=== PATIENT | male | born 1950 | race Caucasian/White ===

== ENCOUNTER 2020-04-02 14:43 | Inpatient (IN) | payer MEDICARE, OTHER, SELFPAY ==
[2020-04-02] VITALS (8 sets, daily range): BP systolic 139–198; BP diastolic 86–111; PULSE 63–76; RESP 17–21; TEMP 36.6–36.7; O2SAT 98–100; BMI 29.2
--- NOTE | ~2020-04-02 | XR_ITS ---
EXAMINATION: XR chest 2V DATE: 04/07/2020 10:31 INDICATION: Bilateral pleural effusions. TECHNIQUE: Frontal and lateral views of the chest were obtained. COMPARISON: Chest 2 views 04/03/2020, chest CT 04/02/2020 FINDINGS: There are small pleural effusions. There is mild atelectasis in the lower lung zones. No pn eumothorax. The heart size is normal. IMPRESSION: 1. Worsened small pleural effusions. Reviewed, dictated and finalized at location A.
--- NOTE | ~2020-04-02 | US_ITS ---
EXAMINATION: US right upper quadrant EXAM DATE: 04/05/2020 14:16 INDICATION: Cirrhosis. TECHNIQUE: Multiple grayscale and Doppler images of the abdomen right upper quadrant were obtained (b y a technologist who performed the scan) and subsequently reviewed. Correlation is made to CTA [facility] scan 04/02/2020. FINDINGS: The pancreatic head and body are normal in appearance. The pancreatic tail is not visualized. There is nodular liver contour with mildly heterogeneous liver parenchyma, consistent with cirrhosis. Ther e is small amount of perihepatic and pericholecystic ascites. There are no focal liver lesions ident ified. There is no evidence of intrahepatic biliary duct dilation. Portal venous flow was seen in the hepatopedal, normal direction with mildly pulsatile flow could be transmitted from right heart fa ilure. No right-sided hydronephrosis. Common bile duct measures 3 mm, which is normal. Borderline thickening gallbladder wall, nonspecific in the setting of ascites. Technologist performing exam reports patient did not demonstrate sonograp hic López's sign. Please note that this sign is less reliable in patients who have received pain me dication. Some echogenic debris and probably small poorly calcified gallstones within the gallbladde r lumen. IMPRESSION: 1. Nodular liver contour consistent with cirrhosis. 2. Small perihepatic, pericholecystic ascites. 3. Cholelithiasis. Borderline nonspecific wall thickening without sonographic López's sign. Reviewed, dictated and finalized at location A.
--- NOTE | ~2020-04-02 | US_ITS ---
EXAMINATION: US venous doppler [facility] DATE: 04/03/2020 08:32 INDICATION: Lower limb swelling TECHNIQUE: Grayscale ultrasound images without and with compression and Doppler ultrasound images of the bilateral lower extremity veins were obtained. COMPARISON: None. FINDINGS: The visualized portions of right common femoral vein, profunda (deep) femoral vein, femoral vein, pop liteal vein, posterior tibial veins, peroneal veins, gastrocnemius vein and greater saphenous vein ou tflow are patent. Increased venous pulsatility with biphasic venous waveforms throughout the right lo wer limb. Subcutaneous edema at the right calf. The visualized portions of left common femoral vein, profunda femoral vein, femoral vein, popliteal v ein, posterior tibial veins, peroneal veins, gastrocnemius vein and greater saphenous vein outflow ar e patent. Increased venous pulsatility with biphasic venous waveforms throughout the left lower limb. Subcutaneous edema at the left calf. IMPRESSION: 1. No deep venous thrombosis in either lower limb. 2. Increased venous pulsatility with biphasic waveforms throughout both lower limbs which can be seen with tricuspid regurgitation, congestive heart failure or other causes of elevated right heart press ures. Reviewed, dictated and finalized at location A. IMPRESSION: 1. No deep venous thrombosis in either lower limb. 2. Increased venous pulsatility with biphasic waveforms throughout both lower l imbs which can be seen with tricuspid regurgitation, congestive heart failure o r other causes of elevated right heart pressures.
--- NOTE | ~2020-04-02 | CT_ITS ---
EXAMINATION: CTA chest PE protocol DATE: 04/02/2020 17:22 INDICATION: Chest pain TECHNIQUE: Computed tomography angiography (CTA) of the chest was performed with 100 mL Omnipaque-350 intravenous contrast timed to evaluate the pulmonary arteries. Coronal maximum intensity projection 3D-reconstructions were created by the technologist. The dose-length product (DLP) was 525.19 mGy-cm. Automated exposure control and iterative reconstruction technique were employed. COMPARISON: None. FINDINGS: No pulmonary embolism or acute cardiopulmonary abnormality. There are moderate size right a nd small left pleural effusions. Fluid tracks into the major fissure on the right. There is atelectas is of the lower lobes, right greater than left. There is no pneumothorax. Moderate bilateral gynecoma stia is noted. No pathologically enlarged thoracic lymph nodes are identified. The heart size is norm al. There is moderate thoracic spondylosis. IMPRESSION: 1. No pulmonary embolism. 2. Moderate-sized pleural effusions, right greater than left, with associated passive atelectasis in the lower lobes. Reviewed, dictated and finalized at location A. IMPRESSION: 1. No pulmonary embolism. 2. Moderate-sized pleural effusions, right greater than left, with associated p assive atelectasis in the lower lobes.
--- NOTE | ~2020-04-02 | US_ITS ---
EXAMINATION: US thoracentesis DATE: 04/03/2020 14:41 INDICATION: Moderate-sized right pleural effusion. TECHNIQUE: The procedure and its risks and benefits were discussed with the patient. Potential risks discussed included bleeding, infection, and pneumothorax. The patient understood the risks and agreed to proceed. The skin was prepped and draped in sterile fashion. 1% lidocaine was used for local anes thesia. Under ultrasound guidance, a 5 Fr catheter with trochar was advanced into the moderate-sized right pleural effusion. Fluid was aspirated. The catheter was removed, and a dressing was applied. Th ere were no immediate complications. FINDINGS: Ultrasound images demonstrate a moderate-sized right pleural effusion and the catheter within the flu id. IMPRESSION: 1. Successful ultrasound-guided thoracentesis yielding 700 mL of slightly turbid zarina-colored fluid . Reviewed, dictated and finalized at location A. IMPRESSION: 1. Successful ultrasound-guided thoracentesis yielding 700 mL of slightly turb id zarina-colored fluid.
--- NOTE | ~2020-04-02 | XR_ITS ---
EXAMINATION: XR chest 1V portable INDICATION: Shortness of breath TECHNIQUE: Portable AP chest at 1623 hours COMPARISON: None available FINDINGS: There is a small right pleural effusion. There are airspace opacities of the right lung bas e. No pneumothorax is identified. The cardiomediastinal silhouette is normal. IMPRESSION: 1. Small right pleural effusion. 2. Right basilar airspace opacity, consistent with atelectasis versus pneumonia. Reviewed, dictated and finalized at location A. IMPRESSION: 1. Small right pleural effusion. 2. Right basilar airspace opacity, consistent with atelectasis versus pneumonia .
--- NOTE | ~2020-04-02 | XR_ITS ---
EXAMINATION: XR chest 2V DATE: 04/03/2020 14:35 INDICATION: Right pleural effusion postthoracentesis TECHNIQUE: frontal and lateral views of the chest were obtained. COMPARISON: Chest radiograph dated 01/02 at 8:15 AM FINDINGS: Small bilateral pleural effusions with significant decrease in size on the right post right thoracent esis. No pneumothorax. No other airspace opacities or pulmonary edema. The cardiomediastinal silhouet te is normal. Visualized bones and soft tissues are unremarkable. IMPRESSION: 1. Small bilateral pleural effusions, significantly decreased on the right post right thoracentesis. No pneumothorax. Reviewed, dictated and finalized at location A.
--- NOTE | ~2020-04-02 | XR_ITS ---
XR chest 2V DATE: 04/03/2020 08:18 INDICATION: Right pleural effusion TECHNIQUE: AP and lateral views COMPARISON: 04/03/2020 AP and lateral views FINDINGS: There is persistent mild to moderate right pleural effusion. There is persistent infiltrat e or atelectasis in the right lower lung field. Normal heart size. IMPRESSION: No significant change since 04/03/2020 Reviewed, dictated and finalized at location A.
--- NOTE | 2020-04-02 15:09 | ECG_ITS ---
Measurements Intervals [place] Rate: 65 P: 37 MN: 120 QRS: 50 QRSD: 79 T: 195 QT: 411 QTc: 428 Interpretive Statements SINUS RHYTHM LOW QRS VOLTAGE IN LIMB LEADS BORDERLINE R WAVE PROGRESSION, ANTERIOR LEADS BORDERLINE T WAVE ABNORMALITY- INFERIOR LEADS BASELINE WANDER- I, II, AVR, AVL, AVF, V1-V6 BORDERLINE ECG Electronically Signed On 04-02-2020 16:16:21 CDT by Luis Gonzalez D.O.
--- NOTE | 2020-04-02 15:11 | ED.SOB ---
HPI - SOB/Dyspnea General Chief Complaint: Shortness of Breath/Dyspnea Stated Complaint: SOB Time Seen by Provider: 04/02/20 15:01 Source: patient Mode of arrival: ambulatory Limitations: no limitations History of Present Illness HPI Narrative: This patient is an male with history of hypertension who presents for evaluation of shortness of breath for 3 weeks. Patient has had leg swelling for 3 week and worsening shortness of breath. He reports coughing at night and he has orthopnea. She denies associated chest pain, fever, dizziness , nausea or vomiting. His finally made him come in for evaluation today. He denies previous history heart disease, CHF or COPD. MD elicited complaint: shortness of breath Related Data Home Medications Medication Instructions Recorded Confirmed atorvastatin 04/02/20 04/02/20 fluticasone propionate INTRANASAL 04/02/20 glipizide mg 04/02/20 losartan 04/02/20 montelukast mg 04/02/20 omeprazole 04/02/20 Allergies Allergy/AdvReac Type Severity Reaction Status Date / Time No Known Allergies Allergy Unverified 05/30/19 15:14 Review of Systems Review of Systems: All systems reviewed & are unremarkable except as noted in HPI and below Constitutional: Constitutional: Denies chills, Denies fever(s) and Reports weakness Cardiovascular: Cardiovascular: Denies chest pain and Denies radiating jaw, neck or arm pain Respiratory: Respiratory: Reports cough and Reports dyspnea PMFSH Past Medical History Medical History (Updated 04/02/20 @ 18:39 by Mindi Kay MD) GERD (gastroesophageal reflux disease) Hypertension Social History Social History (Updated 04/02/20 @ 15:15 by Mindi Kay MD) Smoking status: Never smoker Substance use: never Comments Previous cyst removal from his back Exam Narrative: Exam Narrative: GENERAL: Well-appearing, well-nourished, and in no acute distress. HEAD: Normocephalic, atraumatic EYES: PERRLA and EOMI, conjunctiva clear without discharge EARS: TM's clear bilaterally without erythema or dullness NOSE: Nares clear, no rhinorrhea or epistaxis THROAT:Mucous membranes moist, Oropharynx normal without erythema, exudate, peritonsillar swelling or fluctuance NECK: Supple, without lymphadenopathy or mass RESPIRATORY: No respiratory distress, Airway patent, Respirations non-labored, Clear to auscultation without rales, rhonchi or wheeze HEART: Regular rate and rhythm. No murmur heard. Normal peripheral pulses. ABDOMEN: Soft, nontender, nondistended, normal active bowel sounds. No masses. No rebound or guarding, No organomegaly. EXTREMITIES: 3+ pitting edema to lower extremities normal strength with full range of motion. SKIN: Warm, dry, normal color without rash NEURO: Alert and oriented x3. CN 2-12 grossly intact. No focal deficits. PSYCH: Normal mood and affect. Const: General: no acute distress Orientation/consciousness: patient oriented x3 Course Consultations Consultation #1: I discussed with Edie patient presenting with shortness of breath and moderate size pleural effusion. She accepts for admission. Date: 04/02/20 Time: 18:36 Vital Signs Vital signs: Vital Signs Temperature 98.1 F 04/02/20 14:44 Pulse Rate 68 04/02/20 14:44 Respiratory Rate 20 04/02/20 14:44 Blood Pressure 162/88 H 04/02/20 14:44 Pulse Oximetry 100 04/02/20 14:44 Temperature 98.1 F 04/02/20 14:44 Pulse Rate 65 04/02/20 18:25 Respiratory Rate 20 04/02/20 18:25 Blood Pressure 179/111 H 04/02/20 18:25 Pulse Oximetry 98 04/02/20 18:25 MDM - SOB/Dyspnea Lab Data Attestation: I reviewed the patient's lab results. Result diagrams: 04/02/20 15:59 04/02/20 15:59 Labs: Lab Results 04/02/20 04/02/20 04/02/20 Range/Units 15:43 15:58 15:58 WBC (4.5-10.0) K/mm3 RBC (4.6-6.20) M/mm3 Hgb (14.0-18.0) g/dL Hct (42.0-52.0) % MCV (80-100) fl
[2020-04-02 15:48] LABS: Alveolar/Arterial O2 Gradient 35.9 mmHg; Base Excess ABG -1.4 mEq/l (+/-2.0); Carboxyhemoglobin 0.9 % THb (0-2.0); Fractional Inspired Oxygen 21 %; Methemoglobin ABG 0.3 %THb (0-1.5); Oxygen Saturation ABG 96.4 % (95.0-100.0); Oxyhemoglobin 93.7 % THb (90.0-100.0); PCO2 ABG 29.5 mmHg (35.0-45.0); PO2 ABG 78.5 mmHg (80.0-100.0); PO2 FiO2 Ratio Arterial Blood 3.74 %; Reduced Hemoglobin 5.1 %THb (0-5.0); Total Hemoglobin 14.4 g/dL (12.0-18.0); pH ABG 7.471 (7.350-7.450)
[2020-04-02 15:49] LABS: Device ROOM AIR; Site Drawn LEFT BRACHIAL
[2020-04-02 16:12] LABS: Basophils Absolute Auto 0.1 K/mm3 (0.0-0.1); Basophils Percent Auto 1.1 % (0.2-1.2); Eosinophils Percent Auto 0.6 % (0-4.4); Hematocrit 42.5 % (42.0-52.0); Hemoglobin 13.7 g/dL (14.0-18.0); Immature Granulocyte Absolute 0.02 K/mm3 (0.00-0.031); Immature Granulocyte Percent A 0.4 % (0-0.5); Lymphocytes Absolute Auto 1.19 K/mm3 (0.9-3.2); Lymphocytes Percent Auto 22.8 % (18.3-44.2); Mean Corpuscular HGB Conc 32.2 g/dl (32-36); Mean Corpuscular Hemoglobin 31.1 pg (26-34); Mean Corpuscular Volume 96.6 fl (80-100); Mean Platelet Volume 11.1 fl (7.4-10.4); Monocytes Absolute Auto 0.7 K/mm3 (0.1-0.6); Monocytes Percent Auto 12.8 % (2.6-8.5); Neutrophils Absolute Auto 3.3 K/mm3 (1.3-6.7); Neutrophils Percent Auto 62.3 % (45.5-73.1); Platelet Count Result 215 k/mm3 (150-375); Red Cell Distribution Width 15.9 % (11.5-14.5); White Blood Count 5.2 K/mm3 (4.5-10.0)
[2020-04-02 16:18] LABS: INR 1.5; Prothrombin Time 17.8 Seconds (11.1-14.7)
[2020-04-02 16:19] LABS: Partial Thromboplastin Time 35.1 SECONDS (22.3-36.8)
[2020-04-02 16:21] LABS: Blood Urea Nitrogen 20 mg/dL (9-20); Calcium 9.4 mg/dL (8.4-10.2); Carbon Dioxide 20 mmol/L (22-30); Chloride 112 mmol/L (98-107); Estimated Glomerular Filt Rate 55; Glucose 114 mg/dL (75-110); Sodium 143 mmol/L (137-145)
[2020-04-02 16:33] LABS: NT Pro B Type Natriuretic Pept 506 PG/ML (5-100); Troponin I < 0.012 ng/mL (0.000-0.034)
[2020-04-02] MEDS: NITROGLYCERIN OINTMENT 1 INCH DOSE TRANSDERM (16:52)
[2020-04-02] MEDS: FUROSEMIDE INJ 100 MG/10 ML VIAL 80 MG IV PUSH (16:52)
[2020-04-02 17:00] LABS: D Dimer 3.32 ug/mL (<0.48)
[2020-04-02 17:41] LABS: Alanine Aminotransferase 30 U/L (4-50); Albumin Level 4.5 g/dL (3.5-5.1); Alkaline Phosphatase 172 U/L (38-126); Aspartate Amino Transferase 53 U/L (17-59); Bilirubin,Total 1.5 mg/dL (0.2-1.3)
[2020-04-02] MEDS: hydrALAZINE HCL 20 MG/ML VIAL IV PUSH (18:25)
[2020-04-02 19:54] LABS: Add Urine Microscopic? YES; Appearance Urine Clear (Clear); Bilirubin Urine Negative (Negative); Blood Urine 1+ (Negative); Color Urine Straw (Yellow); Glucose Urine UA Negative (Negative); Ketones Urine Negative (Negative); Leukocyte Esterase Ur Negative LEU/UL (Negative); Mucus Urine Rare /lpf; Nitrate Urine Negative (Negative); Protein Urine 1+ mg/dL (Negative); Specific Grav Ur 1.014 (1.001-1.035); Squamous Epithelial Cell Urine Occasional /hpf (Few); Urobilinogen Urine Negative mg/dL (<2.0); WBC Urine 0-3 /hpf
--- NOTE | 2020-04-02 19:55 | ADMGEN ---
This patient, Edmundo Islas, was admitted to [facility] Surg Room 317-02. Patient/family oriented to hospital policies and general routines including ID bracelet, bed and alarms, visiting hours, pain management, procedures, bathroom and other care routines, personal items, smoking policy, room service/diet, and visiting hours. Valuables list has been completed. Information on how to activate the Rapid Response Team has been discussed. Patient/Family are encouraged to report perceived risks to care and to ask questions if they do not understand what they are told or what they should do.
[2020-04-02 20:51] LABS: Glucose Point of Care 86 (65-105)
[2020-04-02 22:14] LABS: Glucose Point of Care 131 (65-105)
--- NOTE | 2020-04-02 23:55 | PM.IMHP ---
H&P: HPI History of Present Illness Chief complaint: right pleural effusion, hypertensive urgency Narrative: Edmundo Islas is a 70 year old male who presented to the emergency room with shortness of breath for the last 3 weeks. He also had some leg swelling for the 3 weeks as well. Patient denies any COPD, CHF, or any heart disease. The patient denies ever having any blood clots. Was found to be 3.32. CT pulmonary was read as no PEs. Moderate-sized pleural effusions right greater than left with associated passive atelectasis in the lower lobes. A Stevens catheter was placed and the patient was given IV Lasix. He was given hydralazine for blood pressure and also nitro paste. Patient stated that he is feeling somewhat better and he is on room air now. Date of service 04/02/2020 Review of Systems Review of Systems: Narrative: He denies any fever chills. The patient is a poor historian he kept falling asleep during the interview. All systems reviewed & are unremarkable except as noted in HPI and below Constitutional: Constitutional: Reports as per HPI and Reports no additional constitutional complaints Eyes: Eyes: Reports as per HPI and Reports no additional eye complaints ENT: Reports system reviewed and no additional complaints, except as documented and Reports Normal hearing present Cardiovascular: Cardiovascular: Reports no additional cardiovascular complaints Respiratory: Respiratory: Reports no additional respiratory complaints and Reports no additional respiratory complaints Gastrointestinal: Gastrointestinal: Reports as per HPI and Reports no additional gastrointestinal complaints Musculoskeletal: Musculoskeletal: Reports no additional musculoskeletal complaints Integumentary/Breasts: Skin/Breast: Reports system reviewed and no additional complaints, except as docu and Reports as per HPI Neurologic: Reports system reviewed and no additional complaints, except as documented, Reports as per HPI and Reports Normal hearing present Psychiatric: Psychiatric: Reports no additional psychiatric complaints and Reports as per HPI Endocrine: Endocrine: Reports no additional endocrine complaints Hematologic/Lymphatic: Hematologic/Lymphatic: Reports no additional hematologic/lymphatic complaints Allergic/Immunologic: Allergic/Immunologic: Reports no additional allergic/immunologic complaints [facility] Past Medical History Medical History (Updated 04/02/20 @ 23:58 by Edie Kaur NP) DM2 (diabetes mellitus, type 2) GERD (gastroesophageal reflux disease) Hyperlipidemia Hypertension Surgical History Surgical History (Updated 04/02/20 @ 23:59 by Edie Kaur NP) Surgical history unknown The patient denies any surgeries Family History Family History Sibling Cerebrovascular accident Hypertension Sibling Cerebrovascular accident Mother Diabetes mellitus Hypertension Social History Social History (Updated 04/02/20 @ 23:59 by Edie Kaur NP) Social History: The patient tells me the a he has 1 child. He is lives with his . He desires to be a full code. He is retired. Lifelong nonsmoker. He denies any alcohol marijuana or illicit drugs. Smoking status: Never smoker Second hand tobacco smoke exposure: Yes Alcohol intake: current Substance use: never Other substance usage details: social drinker Spiritual care concerns: No Meds Home Medications and Allergies Home Medications Medication Instructions Recorded Confirmed Type atorvastatin 10 mg PO DAILY 04/02/20 04/02/20 History fluticasone propionate 1 spray INTRANASAL DAILY PRN 04/02/20 04/02/20 History glipizide 5 mg PO DAILY 04/02/20 04/02/20 History losartan 100 mg PO DAILY 04/02/20 04/02/20 History metformin 1,000 mg PO BIDWM 04/02/20 04/02/20 History metoprolol tartrate 50 mg PO DAILY 04/02/20 04/02/20 History montelukast 10 mg PO DAILY 04/02/20 04/02/20 Hist
[2020-04-03] VITALS (9 sets, daily range): BP systolic 112–149; BP diastolic 67–88; PULSE 66–70; RESP 16–20; TEMP 36.4–36.7; O2SAT 93–100
--- NOTE | 2020-04-03 | ECHO_ITS ---
Patient Info Name: Edmundo Islas Age: 70 years : 1950 Gender: Male Ht: 71 in Wt: 210 lbs BSA: 2.21 m2 HR: 70 bpm BP: 139 / 86 mmHg Heart Rhythm: Sinus Rhythm Technical Quality: Good Exam Date: 04/03/2020 10:00 AM Exam Location: [facility] Patient Status: Inpatient Admit Date: 04/02/2020 Staff Ordering Physician: Edie Kaur NP Principal Engineer: Ari Persaud RDCS Attending Provider: Adryan Rich PA-C Referring Physician: Natasha AKINS; Exam Type: CA echo doppler color flow Study Info Indications R06.02 - Shortness of breath Complete two-dimensional, color flow and Doppler transthoracic echocardiogram is performed. Strain analysis performed. History/Risk Factors Shortness of breath; DM2, HTN, edema. Summary 1. Left ventricular chamber dimension is normal. 2. Left ventricular systolic function is normal, estimated at 65-70%. 3. Left ventricular septal wall motion is abnormal and can be seen in constrictive pericarditis.. 4. D shape septum with systole suggests right ventricular pressure overload. 5. The left ventricular diastolic function is normal. 6. E/e' 5 is not elevated. 7. Global longitudinal strain is normal at -17.6%. 8. Right ventricular systolic function is reduced based on TAPSE 1.1 cm. 9. Left atrial chamber dimension is mildly enlarged. 10. There is mild mitral valve regurgitation. 11. Pronounced mitral inflow velocity variation suggests possibility of constrictive pericarditis. Consider cardiac MRI or cardiac CT if clinically indicated. 12. There is trace tricuspid valve regurgitation. 13. Moderate pulmonary hypertension, estimated pulmonary arterial systolic pressure is 54 mmHg. 14. Dilated inferior vena cava with <50% collapse upon inspiration consistent with significantly elevated right atrial pressure, 15 mmHg. 15. There is trivial pericardial effusion. Left Ventricle Left ventricular septal wall motion is abnormal and can be seen in constrictive pericarditis.. E/e' 5 is not elevated. D shape septum with systole suggests right ventricular pressure overload. Global longitudinal strain is normal at -17.6%. Left ventricular chamber dimension is normal. Left ventricular systolic function is normal, estimated at 65-70%. The left ventricular diastolic function is normal. Right Ventricle Right ventricular systolic function is reduced based on TAPSE 1.1 cm. Right ventricular chamber dimension is not well visualized. Left Atria Left atrial chamber dimension is mildly enlarged. Right Atria Right atrial chamber dimension is normal. Aortic Valve The aortic valve is trileaflet. There is no aortic valve stenosis. There is no aortic valve regurgitation. Pulmonic Valve There is no pulmonic regurgitation. Mitral Valve Pronounced mitral inflow velocity variation suggests possibility of constrictive pericarditis. Consider cardiac MRI or cardiac CT if clinically indicated. There is no mitral valve stenosis. There is mild mitral valve regurgitation. Tricuspid Valve There is trace tricuspid valve regurgitation. Moderate pulmonary hypertension, estimated pulmonary arterial systolic pressure is 54 mmHg. Pericardium/Pleural There is trivial pericardial effusion. Inferior Vena Cava Dilated inferior vena cava with <50% collapse upon inspiration consistent with significantly elevated right atrial pressure, 15 mmHg. Aorta The aortic root size at the sinus of Valsalva is normal. Left Ventri
[2020-04-03 00:56] LABS: Bilirubin,Total 1.6 mg/dL (0.2-1.3); Cholesterol 78 mg/dL (0-200); Lactate Dehydrogenase 542 U/L (313-618); Triglycerides 48 mg/dL (<150)
[2020-04-03 00:58] LABS: Hemoglobin A1C 6.6 % (<5.7)
[2020-04-03] MEDS: LOSARTAN POTASSIUM 100 MG TABLET PO (09:06)
[2020-04-03] MEDS: MONTELUKAST SODIUM 10 MG TABLET PO (09:06)
[2020-04-03] MEDS: ATORVASTATIN 10 MG TABLET PO (09:06)
[2020-04-03] MEDS: METOPROLOL TARTRATE 50 MG TAB PO (09:06)
[2020-04-03] MEDS: FUROSEMIDE INJ 40 MG/4 ML VIAL IV PUSH (09:06)
[2020-04-03] MEDS: glipiZIDE 5 MG TABLET PO (09:06)
[2020-04-03] MEDS: PANTOPRAZOLE 40 MG TABLET PO ×2 (09:07→17:32)
[2020-04-03 09:17] LABS: Glucose Point of Care 82 (65-105)
[2020-04-03 10:51] LABS: Basophils Absolute Auto 0.1 K/mm3 (0.0-0.1); Basophils Percent Auto 0.8 % (0.2-1.2); Eosinophils Percent Auto 0.5 % (0-4.4); Hematocrit 38.3 % (42.0-52.0); Hemoglobin 12.3 g/dL (14.0-18.0); Immature Granulocyte Absolute 0.03 K/mm3 (0.00-0.031); Immature Granulocyte Percent A 0.5 % (0-0.5); Lymphocytes Percent Auto 15.8 % (18.3-44.2); Mean Corpuscular HGB Conc 32.1 g/dl (32-36); Mean Corpuscular Hemoglobin 31.1 pg (26-34); Mean Platelet Volume 10.4 fl (7.4-10.4); Monocytes Absolute Auto 0.7 K/mm3 (0.1-0.6); Monocytes Percent Auto 11.3 % (2.6-8.5); Neutrophils Absolute Auto 4.5 K/mm3 (1.3-6.7); Neutrophils Percent Auto 71.1 % (45.5-73.1); Platelet Count Result 213 k/mm3 (150-375); Red Blood Count 3.95 M/mm3 (4.6-6.20); Red Cell Distribution Width 16.2 % (11.5-14.5); White Blood Count 6.3 K/mm3 (4.5-10.0)
[2020-04-03 11:01] LABS: Lactic Acid 2.9 mmol/L (0.7-2.1)
[2020-04-03 11:10] LABS: Alanine Aminotransferase 26 U/L (4-50); Alkaline Phosphatase 140 U/L (38-126); Aspartate Amino Transferase 40 U/L (17-59); Bilirubin,Total 1.7 mg/dL (0.2-1.3); Blood Urea Nitrogen 21 mg/dL (9-20); Carbon Dioxide 24 mmol/L (22-30); Chloride 108 mmol/L (98-107); Estimated CRCL calculation 43 ml/min; Estimated Glomerular Filt Rate 43; Glucose 162 mg/dL (75-110); Magnesium 1.7 mg/dL (1.6-2.3); Potassium 3.5 mmol/L (3.4-5.0); Sodium 144 mmol/L (137-145)
[2020-04-03 11:59] LABS: Glucose Point of Care 223 (65-105)
[2020-04-03] MEDS: INSULIN ASPART (*BKC) 100 UNITS/ML SUB-Q (12:36)
--- NOTE | 2020-04-03 13:40 | P.PNIM_ITS ---
Progress Note: A&P Assessment and Plan (1) Pleural effusion, bilateral: Code(s): J90 - Pleural effusion, not elsewhere classified Status: Acute Assessment and Plan: Rt>Lt. Possibly due to constrictive pericarditis. Patient states his breathing has improved with IV lasix; Cr elevated to 1.60 overnight, however. * Patient to have US guided thoracentesis when appropriate from Radiology standpoint * Held IV diuretics given AISHA * Dr. 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 Possible etiology behind pleural effusions and LE swelling. * Will consult Dr. Gonzalez for further input and management; appreciate recommendations * Will attempt to get US thoracentesis once okay from Radiology standpoint; therapeutic/diagnostic * MOnitor * Await further rec from Cardiology (3) AISHA (acute kidney injury): Code(s): N17.9 - Acute kidney failure, unspecified Status: Acute Assessment and Plan: Cr up to 1.60 from 1.30 overnight. Likely secondary to IV lasix use * Hold nephrotoxic agents including diuretics; renally dose * Monitor daily * Avoid additional fluids if possible given pleural effusions and LE swelling (4) Hypertension: Code(s): I10 - Essential (primary) hypertension Status: Chronic Assessment and Plan: BP 110s sys this morning * Hold Losartan and diuretics for now given AISHA; continue other home medications * Hydralazine PRN with parameters (5) Hypertensive urgency: Code(s): I16.0 - Hypertensive urgency Status: Acute Assessment and Plan: This has appeared to have resolved. BP 110s sys this morning * Hold Losartan and diuretics for now given AISHA; continue other home medications * Hydralazine PRN with parameters (6) Hyperlipidemia: Code(s): E78.5 - Hyperlipidemia, unspecified Status: Chronic Assessment and Plan: * Hold Statin for now (7) DM2 (diabetes mellitus, type 2): Code(s): E11.9 - Type 2 diabetes mellitus without complications Status: Chronic Assessment and Plan: BGL 100s-200s today * Hold metformin * continue glipizide for now * Accuchecks ACHS, hypoglycemia protocol, correctional insulin, diabetic diet (8) GERD (gastroesophageal reflux disease): Code(s): K21.9 - Gastro-esophageal reflux disease without esophagitis Status: Chronic Assessment and Plan: NO acute issues * Continue with pantoprazole (9) Elevated d-dimer: Code(s): R79.89 - Other specified abnormal findings of blood chemistry Status: Acute Assessment and Plan: US b/l LE and CTA chest negative for DVT and PE. * Monitor * Lovenox to start for DVT ppx after obtaining thoracentesis Subjective Date/time seen: 04/03/20 13:40 Interval history: Patient is a 70 yo M with history of DMII, GERD, HTN, and HLD who is here for evaluation of SOB and LE swelling with pleural effusions and Echo results suggestive of constrictive pericarditis. Patient states he is feeling less SOB today. His leg swelling is still
--- NOTE | 2020-04-03 13:40 | PM.IMPN ---
Progress Note: A&P Assessment and Plan (1) Pleural effusion, bilateral: Code(s): J90 - Pleural effusion, not elsewhere classified Status: Acute Assessment and Plan: Rt>Lt. Possibly due to constrictive pericarditis. Patient states his breathing has improved with IV lasix; Cr elevated to 1.60 overnight, however. Patient to have US guided thoracentesis when appropriate from Radiology standpoint Held IV diuretics given AISHA Dr. 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 Possible etiology behind pleural effusions and LE swelling. Will consult Dr. Gonzalez for further input and management; appreciate recommendations Will attempt to get US thoracentesis once okay from Radiology standpoint; therapeutic/diagnostic MOnitor Await further rec from Cardiology (3) AISHA (acute kidney injury): Code(s): N17.9 - Acute kidney failure, unspecified Status: Acute Assessment and Plan: Cr up to 1.60 from 1.30 overnight. Likely secondary to IV lasix use Hold nephrotoxic agents including diuretics; renally dose Monitor daily Avoid additional fluids if possible given pleural effusions and LE swelling (4) Hypertension: Code(s): I10 - Essential (primary) hypertension Status: Chronic Assessment and Plan: BP 110s sys this morning Hold Losartan and diuretics for now given AISHA; continue other home medications Hydralazine PRN with parameters (5) Hypertensive urgency: Code(s): I16.0 - Hypertensive urgency Status: Acute Assessment and Plan: This has appeared to have resolved. BP 110s sys this morning Hold Losartan and diuretics for now given AISHA; continue other home medications Hydralazine PRN with parameters (6) Hyperlipidemia: Code(s): E78.5 - Hyperlipidemia, unspecified Status: Chronic Assessment and Plan: Hold Statin for now (7) DM2 (diabetes mellitus, type 2): Code(s): E11.9 - Type 2 diabetes mellitus without complications Status: Chronic Assessment and Plan: BGL 100s-200s today Hold metformin continue glipizide for now Accuchecks ACHS, hypoglycemia protocol, correctional insulin, diabetic diet (8) GERD (gastroesophageal reflux disease): Code(s): K21.9 - Gastro-esophageal reflux disease without esophagitis Status: Chronic Assessment and Plan: NO acute issues Continue with pantoprazole (9) Elevated d-dimer: Code(s): R79.89 - Other specified abnormal findings of blood chemistry Status: Acute Assessment and Plan: US b/l LE and CTA chest negative for DVT and PE. Monitor Lovenox to start for DVT ppx after obtaining thoracentesis Subjective Date/time seen: 04/03/20 13:40 Interval history: Patient is a 70 yo M with history of DMII, GERD, HTN, and HLD who is here for evaluation of SOB and LE swelling with pleural effusions and Echo results suggestive of constrictive pericarditis. Patient states he is feeling less SOB today. His leg swelling is still persistent, however. Otherwise he has no other complaints for me today. Denies f/c/s, myalgias/arthralgias, headaches, dizziness, lightheadedness, cp/palpitations, n/v/d/c, abd pain, changes in BMs, dysuria, hematuria, cloudy urine, calf pain/swelling. Review of Systems Review of Systems: All systems reviewed & are unremarkable except as noted in HPI and below Exam Narrative: Exam Narrative: Christianaen
[2020-04-03 14:42] LABS: pH Pleural Fluid 7.493 (7.210-7.500)
--- NOTE | 2020-04-03 15:08 | PM.CNCAR ---
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 Will start Colchicine 0.6 mg BID and Indomethacin 50 mg BID. Has to monitor kidney function on NSAIDs. After 3 months of therapy, recheck echo for constrictive pericarditis. His regular school teacher is Dr. Ortega at [facility]. (2) Hypertension: Code(s): I10 - Essential (primary) hypertension Status: Chronic Assessment and Plan: Stable. (3) Hyperlipidemia: Code(s): E78.5 - Hyperlipidemia, unspecified Status: Chronic (4) AISHA (acute kidney injury): Code(s): N17.9 - Acute kidney failure, unspecified Status: Acute (5) Pleural effusion, bilateral: Code(s): J90 - Pleural effusion, not elsewhere classified Status: Acute Assessment and Plan: If resistant to diuresis, agree with thoracentesis. History of Present Illness History of Present Illness Consult date/time: 04/03/20 15:08 Reason for consult: Constrictive pericarditis Edmundo Islas is a 70 year old male who's regular school teacher is Dr. Ortega at [facility] who has history of DM, hypertension, dyslipidemia who presented to the emergency room on 04/02/20 with shortness of breath and edema for the last 3 weeks. He has been diuresed but has persistent pleural effusion with right > left. Plan is for thoracentesis. Reports he has some sob today. No chest pain. He normally is limited at walking short distance about 50 feet before LANDA. An echo done today showed probably contrictive pericarditis. Patient denies history of TB infection, radiation therapy, cancer, trauma to chest. Reason For Visit: right pleural effusion, hypertensive urgency Review of Systems Review of Systems: All systems reviewed & are unremarkable except as noted in HPI and below Constitutional: Constitutional: Reports as per HPI and Denies chills Cardiovascular: Cardiovascular: Reports as per HPI, Denies chest pain, Reports leg edema and Denies palpitations Respiratory: Respiratory: Reports as per HPI, Reports dyspnea and Denies wheezing Gastrointestinal: Gastrointestinal: Reports as per HPI and Denies abdominal pain Genitourinary: Genitourinary: Reports as per HPI and Denies dysuria Musculoskeletal: Musculoskeletal: Reports as per HPI Neurologic: Reports as per HPI [facility] Past Medical History Medical History (Updated 04/03/20 @ 14:05 by dAryan Rich PA-C) DM2 (diabetes mellitus, type 2) GERD (gastroesophageal reflux disease) Hyperlipidemia Hypertension Surgical History Surgical History (Updated 04/02/20 @ 23:59 by Eide Kaur NP) Surgical history unknown The patient denies any surgeries Family History Family History Sibling Cerebrovascular accident Hypertension Sibling Cerebrovascular accident Mother Diabetes mellitus Hypertension Social History Social History (Updated 04/02/20 @ 23:59 by Edie Kaur NP) Social History: The patient tells me the a he has 1 child. He is lives with his . He desires to be a full code. He is retired. Lifelong nonsmoker. He denies any alcohol marijuana or illicit drugs. Smoking status: Never smoker Second hand tobacco smoke exposure: Yes Alcohol intake: current Substance use: never Other substance usage details: social drinker Spiritual care concerns: No Meds Home Medications and Allergies Home Medications Medication Instructions Recorded Confirmed Type atorvastatin 10 mg PO DAILY 04/02/20 04/02/20 History fluticasone propionate 1 spray INTRANASAL DAILY PRN 04/02/20 04/02/20 History glipizide 5 mg PO DAILY 04/02/20 04/02/20 History losartan 100 mg PO DAILY 04/02/20 04/02/20
[2020-04-03 16:22] LABS: Appearance Pleural Fluid Hazy (Clear); Color Pleural Fluid Yellow (Colorless); Lymphocytes Pleural Fluid 44 %; Neutrophils Pleural Fluid 22 % (0-25); Nucleated Cell Pleural Fluid 67 /uL (0-1000); Pleural fluid source Pleural fluid; RBC Pleural Fluid 1694 /uL (0-0)
[2020-04-03 16:23] LABS: Macrophages Pleural Fluid 22 %; Monocytes Pleural Fluid 12 %
[2020-04-03] MEDS: INDOMETHACIN 25 MG CAPSULE 50 MG PO (17:32)
[2020-04-03 17:42] LABS: Glucose Point of Care 73 (65-105)
[2020-04-03] MEDS: COLCHICINE 0.6 MG TABLET PO (20:51)
[2020-04-03 21:47] LABS: Glucose Point of Care 182 (65-105)
[2020-04-04] VITALS (7 sets, daily range): BP systolic 120–151; BP diastolic 69–97; PULSE 62–77; RESP 16–20; TEMP 36.6–36.7; O2SAT 99–100
[2020-04-04 07:57] LABS: Basophils Percent Auto 0.6 % (0.2-1.2); Eosinophils Absolute Auto 0.1 K/mm3 (0-0.3); Eosinophils Percent Auto 1.1 % (0-4.4); Hematocrit 40.8 % (42.0-52.0); Hemoglobin 13.2 g/dL (14.0-18.0); Immature Granulocyte Absolute 0.02 K/mm3 (0.00-0.031); Immature Granulocyte Percent A 0.3 % (0-0.5); Lymphocytes Absolute Auto 1.64 K/mm3 (0.9-3.2); Lymphocytes Percent Auto 25.3 % (18.3-44.2); Mean Corpuscular HGB Conc 32.4 g/dl (32-36); Mean Corpuscular Hemoglobin 31.1 pg (26-34); Mean Corpuscular Volume 96.2 fl (80-100); Mean Platelet Volume 11.1 fl (7.4-10.4); Monocytes Absolute Auto 0.9 K/mm3 (0.1-0.6); Monocytes Percent Auto 13.4 % (2.6-8.5); Neutrophils Absolute Auto 3.9 K/mm3 (1.3-6.7); Neutrophils Percent Auto 59.3 % (45.5-73.1); Platelet Count Result 203 k/mm3 (150-375); Red Blood Count 4.24 M/mm3 (4.6-6.20); Red Cell Distribution Width 16.1 % (11.5-14.5); White Blood Count 6.5 K/mm3 (4.5-10.0)
[2020-04-04 08:07] LABS: Ammonia 66 umol/L (9-30)
[2020-04-04 08:12] LABS: Lactic Acid 1.4 mmol/L (0.7-2.1)
[2020-04-04 08:18] LABS: Alanine Aminotransferase 27 U/L (4-50); Albumin Level 4.1 g/dL (3.5-5.1); Alkaline Phosphatase 157 U/L (38-126); Aspartate Amino Transferase 40 U/L (17-59); Bilirubin,Total 1.8 mg/dL (0.2-1.3); Blood Urea Nitrogen 24 mg/dL (9-20); Calcium 8.9 mg/dL (8.4-10.2); Carbon Dioxide 26 mmol/L (22-30); Chloride 106 mmol/L (98-107); Estimated CRCL calculation 45 ml/min; Estimated Glomerular Filt Rate 47; Glucose 97 mg/dL (75-110); Lactate Dehydrogenase 578 U/L (313-618); Magnesium 1.9 mg/dL (1.6-2.3); Potassium 3.3 mmol/L (3.4-5.0); Sodium 143 mmol/L (137-145)
[2020-04-04] MEDS: glipiZIDE 5 MG TABLET PO (08:40)
[2020-04-04] MEDS: MONTELUKAST SODIUM 10 MG TABLET PO (08:41)
[2020-04-04] MEDS: PANTOPRAZOLE 40 MG TABLET PO ×2 (08:41→16:57)
[2020-04-04] MEDS: COLCHICINE 0.6 MG TABLET PO ×2 (08:41→19:55)
[2020-04-04] MEDS: INDOMETHACIN 25 MG CAPSULE 50 MG PO ×2 (08:41→16:58)
[2020-04-04] MEDS: METOPROLOL TARTRATE 50 MG TAB PO (08:43)
[2020-04-04] MEDS: POTASSIUM CHLORIDE 20 MEQ TABLET 40 MEQ PO (08:46)
[2020-04-04 09:25] LABS: Folic Acid 16.2 ng/mL (2.76->20)
--- NOTE | 2020-04-04 09:29 | PM.PNCARD ---
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 Will start Colchicine 0.6 mg BID and Indomethacin 50 mg BID. Has to monitor kidney function on NSAIDs. After 3 months of therapy, recheck echo for constrictive pericarditis. His regular traffic clerk is Dr. Johnsonat [place]. Needs to be on some diuretics such as lasix 40 mg PO daily as he still has mild edema of legs and rales in right lung bas. (2) Hyperlipidemia: Code(s): E78.5 - Hyperlipidemia, unspecified Status: Chronic (3) Hypertension: Code(s): I10 - Essential (primary) hypertension Status: Chronic Assessment and Plan: Stable. (4) AISHA (acute kidney injury): Code(s): N17.9 - Acute kidney failure, unspecified Status: Acute (5) Pulmonary hypertension: Code(s): I27.20 - Pulmonary hypertension, unspecified Status: Acute Assessment and Plan: Mod pulm hypertension on echo. May need outpatient workup for sleep apnea also. Subjective Date/time seen: 04/04/20 09:29 Reports breathing much better after thoracentesis yesterday removing 700 ml from right lung. He is not confused today. Exam Const: General: comfortable and no acute distress Neck: Neck: no JVD Carotids: no bruits Resp: Effort & Inspection: normal respiratory effort Auscultation: crackles (Right lung), no rhonchi and no wheezes Cardio: Rate: regular rate Rhythm: regular rhythm Heart sounds: no murmurs GI: Auscultation: normal bowel sounds Neuro: Speech: normal speech Extrem: Right lower extremity: edema Left lower extremity: edema Other: Mild edema of both legs Objective Data Vital Signs Vital Signs: Vital Signs - 24 hr 04/03/20 12:00 04/03/20 14:00 04/03/20 16:00 Temperature 97.6 F Pulse Rate 67 66 69 Respiratory Rate 16 Blood Pressure 112/88 Pulse Oximetry 100 04/03/20 20:00 04/03/20 21:26 04/04/20 00:00 Temperature 98.0 F Pulse Rate 68 67 65 Respiratory Rate 18 Blood Pressure 149/77 H Pulse Oximetry 93 04/04/20 04:00 04/04/20 06:00 04/04/20 08:43 Temperature 98.1 F Pulse Rate 72 64 62 Respiratory Rate 20 Blood Pressure 120/69 Pulse Oximetry 100 Intake/Output Intake/Output: Intake & Output 04/01/20 04/02/20 04/03/20 04/04/20 23:59 23:59 23:59 23:59 Intake Total 1690 440 Output Total 0642 1390 175 Balance -2500 -511 265 Meds/Results Medications: Active Medications Generic Name Dose Route Start Last Admin Trade Name Freq PRN Reason Stop Dose Admin Atorvastatin Calcium 10 mg 04/03/20 09:00 04/03/20 09:06 Lipitor PO 10 mg DAILY KARLY Administration Colchicine 0.6 mg 04/03/20 21:00 04/04/20 08:41 Colchicine Po PO 0.6 mg Q12HR KARLY Administration Dextrose 12.5 gm 04/03/20 00:09 Dextrose 50% Syringe IV PUSH PRN PRN Hypoglycemia Protocol Enoxaparin Sodium 40 mg 04/03/20 09:00 04/04/20 08:43 Lovenox SUB-Q Not Given DAILY KARLY Fluticasone Propionate 1 spray 04/02/20 23:54 Flonase 0.05% Nasal Lasara NASAL DAILY PRN Allergy Symptoms Furosemide 40 mg 04/03/20 09:00 04/03/20 09:06 Lasix Inj IV PUSH 40 mg Q12HR KARLY Administration Glipizide 5 mg 04/03/20 09:00 04/04/20 08:40 Glucotrol PO 5 mg DAILY KARLY Administration Glucagon 1 mg 04/03/20 00:09 Glucagon For Inj IM PRN PRN Hypoglycemia Protocol Glucose 15 gm 04/03/20 00:09 Glutose 15 PO PRN PRN Hypoglycemia Protocol Hydralazine HCl 10 mg 04/03/20 00:52 Apresoline Hcl Inj IV PUSH Q8H PRN Blood Pressure - High Dextrose 1,000 mls @ 100 mls/hr 04/03/20 00:09 Dextrose 5% 1,000 Ml IVPB PRN PRN Hypoglycemia Protoc
[2020-04-04] MEDS: LACTULOSE 20 GM/30 ML UDC PO (09:41)
[2020-04-04 11:36] LABS: Bilirubin Indirect 1.4 mg/dL (0-1.1)
--- NOTE | 2020-04-04 12:19 | PM.IMPN ---
Progress Note: A&P Assessment and Plan (1) Pleural effusion, bilateral: Code(s): J90 - Pleural effusion, not elsewhere classified Status: Acute Assessment and Plan: S/p therapeutic/diagnostic thoracentesis; now showing small b/l pleural effusions on repeat CXR. Possibly due to constrictive pericarditis. Patient states his breathing has much improved today; Cr stable/improved at 1.[address] Gonzalez consulted and appreciate recommendations. Discussed with Dr. Gonzalez who would like him to be started on Lasix to improve fluid status. Pleural fluid analysis shows normal fluid with elevated RBCs; no organisms seen on Gram stain; rest of micro and labs pending Will continue with 40 mg Lasix daily per Dr. 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 Possible etiology behind pleural effusions and LE swelling. Unclear etiology behind finding; no recent illness/infection, no history of cancer per patient; seemingly idiopathic at this point. 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 Gonzalez, but it is imperative that this is done after discharge. Appreciate recs from Dr. Gonzalez Will continue Indomethacin and colchacine per recommendations; monitor renal function closely MOnitor Await further rec from Cardiology (3) AISHA (acute kidney injury): Code(s): N17.9 - Acute kidney failure, unspecified Status: Acute Assessment and Plan: Cr down to 1.50; slight improvement. Likely secondary to IV lasix use Avoid nephrotoxic agents if at all possible; renally dose Monitor daily due to Lasix, Indomethacin and colchacine use; consider holding on one or all meds if worsening function Avoid additional fluids if possible given pleural effusions and LE swelling (4) Hypertension: Code(s): I10 - Essential (primary) hypertension Status: Chronic Assessment and Plan: BP 120s sys this morning Hold Losartan and diuretics for now given AISHA; continue other home medications Hydralazine PRN with parameters (5) Hypertensive urgency: Code(s): I16.0 - Hypertensive urgency Status: Acute Assessment and Plan: This has appeared to have resolved. BP 120s sys this morning see above plan (6) Hyperlipidemia: Code(s): E78.5 - Hyperlipidemia, unspecified Status: Chronic Assessment and Plan: Hold Statin for now; likely resume this at discharge (7) DM2 (diabetes mellitus, type 2): Code(s): E11.9 - Type 2 diabetes mellitus without complications Status: Chronic Assessment and Plan: BGL 90s-130s today Hold metformin continue glipizide for now Accuchecks ACHS, hypoglycemia protocol, correctional insulin, diabetic diet (8) GERD (gastroesophageal reflux disease): Code(s): K21.9 - Gastro-esophageal reflux disease without esophagitis Status: Chronic Assessment and Plan: No acute issues Continue with pantoprazole (9) Elevated d-dimer: Code(s): R79.89 - Other specified abnormal findings of blood chemistry Status: Acute Assessment and Plan: US b/l LE and CTA chest negative for DVT and PE. Monitor Lovenox to start for DVT ppx after obtaining thoracentesis Subjective Date/time seen: 04/04/20 12:19 Interval history: Patient is a 70 yo M with history of DMII, GERD, HTN, a
[2020-04-04 12:45] LABS: Glucose Point of Care 138 (65-105)
[2020-04-04] MEDS: FUROSEMIDE 40 MG TABLET PO (16:58)
[2020-04-04 17:27] LABS: Glucose Point of Care 154 (65-105)
[2020-04-04 21:18] LABS: Glucose Point of Care 269 (65-105)
[2020-04-05 02:09] LABS: Glucose Point of Care 82 (65-105)
[2020-04-05] MEDS: FLUTICASONE PROPIONATE 0.05% NA SPR 16 GM BTL (*BKC) 1 SPRAY NASAL ×2 (04:23→23:42)
[2020-04-05 06:04] VITALS: BP 155/99; PULSE 70; RESP 20; TEMP 36.7; O2SAT 99
[2020-04-05] MEDS: hydrALAZINE HCL 20 MG/ML VIAL 10 MG IV PUSH (06:14)
[2020-04-05 06:24] LABS: Hematocrit 38.9 % (42.0-52.0); Hemoglobin 12.7 g/dL (14.0-18.0); Mean Corpuscular HGB Conc 32.6 g/dl (32-36); Mean Corpuscular Hemoglobin 31.3 pg (26-34); Mean Corpuscular Volume 95.8 fl (80-100); Mean Platelet Volume 10.7 fl (7.4-10.4); Platelet Count Result 210 k/mm3 (150-375); Red Blood Count 4.06 M/mm3 (4.6-6.20); Red Cell Distribution Width 15.9 % (11.5-14.5); White Blood Count 5.3 K/mm3 (4.5-10.0)
[2020-04-05 06:35] LABS: Ammonia 111 umol/L (9-30)
[2020-04-05 06:36] LABS: Alanine Aminotransferase 34 U/L (4-50); Albumin Level 3.9 g/dL (3.5-5.1); Alkaline Phosphatase 163 U/L (38-126); Aspartate Amino Transferase 52 U/L (17-59); Bilirubin,Total 1.4 mg/dL (0.2-1.3); Blood Urea Nitrogen 23 mg/dL (9-20); Calcium 8.7 mg/dL (8.4-10.2); Carbon Dioxide 26 mmol/L (22-30); Chloride 108 mmol/L (98-107); Estimated CRCL calculation 56 ml/min; Estimated Glomerular Filt Rate 60; Glucose 131 mg/dL (75-110); Phosphorus 3.8 mg/dL (2.5-4.5); Potassium 3.5 mmol/L (3.4-5.0); Sodium 139 mmol/L (137-145)
[2020-04-05 06:50] VITALS: BP 144/76; PULSE 77
[2020-04-05 08:51] LABS: Glucose Point of Care 124 (65-105)
--- NOTE | 2020-04-05 09:09 | PM.PNCARD ---
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 Will start Colchicine 0.6 mg BID and Indomethacin 50 mg BID. Has to monitor kidney function on NSAIDs. After 3 months of therapy, recheck echo for constrictive pericarditis. His regular insecticide maker is Dr. Johnsonat [place]. On lasix 40 mg PO daily as he still has mild edema of legs and rales in right lung bas. Ammonia level is elevated. He has a remote history of binge alcohol drinking. Being followed by hospitalist. (2) Hyperlipidemia: Code(s): E78.5 - Hyperlipidemia, unspecified Status: Chronic (3) Hypertension: Code(s): I10 - Essential (primary) hypertension Status: Chronic Assessment and Plan: Mildly high. Changed Metoprolol Tartate to Succinate. (4) AISHA (acute kidney injury): Code(s): N17.9 - Acute kidney failure, unspecified Status: Acute (5) Pulmonary hypertension: Code(s): I27.20 - Pulmonary hypertension, unspecified Status: Acute Assessment and Plan: Probably due to untreated sleep apnea. Mod pulm hypertension on echo. (6) Sleep apnea: Code(s): G47.30 - Sleep apnea, unspecified Status: Acute Assessment and Plan: He related a history several years ago of severe sleep apnea but did not tolerate CPAP due to feeling of drowning with it. Discussed that he needs repeat sleep study and there's alternative treatment such as mandibular device. Subjective Date/time seen: 04/05/20 09:09 Denies chest pain or sob. Not confused. Exam Const: General: comfortable and no acute distress Neck: Neck: no JVD Carotids: no bruits Resp: Effort & Inspection: normal respiratory effort Auscultation: crackles (Right lung), no rhonchi and no wheezes Cardio: Rate: regular rate Rhythm: regular rhythm Heart sounds: no murmurs GI: Auscultation: normal bowel sounds Neuro: Speech: normal speech Extrem: Right lower extremity: edema Left lower extremity: edema Other: Mild edema of both legs Objective Data Vital Signs Vital Signs: Vital Signs - 24 hr 04/04/20 15:24 04/04/20 21:28 04/05/20 06:04 Temperature 97.9 F 97.8 F 98.0 F Pulse Rate 62 66 70 Respiratory Rate 16 18 20 Blood Pressure 147/97 H 151/77 H 155/99 H Pulse Oximetry 99 100 99 04/05/20 06:50 Temperature Pulse Rate 77 Respiratory Rate Blood Pressure 144/76 H Pulse Oximetry Intake/Output Intake/Output: Intake & Output 04/02/20 04/03/20 04/04/20 04/05/20 23:59 23:59 23:59 23:59 Intake Total 1690 2260 290 Output Total 2500 3750 475 375 Balance -2500 -0 1785 -85 Meds/Results Medications: Active Medications Generic Name Dose Route Start Last Admin Trade Name Freq PRN Reason Stop Dose Admin Atorvastatin Calcium 10 mg 04/03/20 09:00 04/03/20 09:06 Lipitor PO 10 mg DAILY KARLY Administration Colchicine 0.6 mg 04/03/20 21:00 04/04/20 19:55 Colchicine Po PO 0.6 mg Q12HR KARLY Administration Dextrose 12.5 gm 04/03/20 00:09 Dextrose 50% Syringe IV PUSH PRN PRN Hypoglycemia Protocol Enoxaparin Sodium 40 mg 04/03/20 09:00 04/04/20 08:43 Lovenox SUB-Q Not Given DAILY KARLY Fluticasone Propionate 1 spray 04/02/20 23:54 04/05/20 04:23 Flonase 0.05% Nasal [place] NASAL 1 spray DAILY PRN Administration Allergy Symptoms Furosemide 40 mg 04/04/20 11:45 04/04/20 16:58 Lasix Tablet PO 40 mg DAILY KARLY Administration Glipizide 5 mg 04/03/20 09:00 04/04/20 08:40 Glucotrol PO 5 mg DAILY KARLY Administration Glucagon 1 mg 04/03/20 00:09 Glucagon For Inj IM PRN PRN Hypoglycemia Protocol Glucose 15 gm 04/03/20 00:09 Glutose 15 PO PRN PRN Hypoglycemia
[2020-04-05 09:47] VITALS: PULSE 74
[2020-04-05] MEDS: COLCHICINE 0.6 MG TABLET PO ×2 (09:47→21:09)
[2020-04-05] MEDS: METOPROLOL SUCCINATE EXT REL 50 MG TABCR PO (09:47)
[2020-04-05] MEDS: FUROSEMIDE 40 MG TABLET PO (09:48)
[2020-04-05] MEDS: glipiZIDE 5 MG TABLET PO (09:48)
[2020-04-05] MEDS: INDOMETHACIN 25 MG CAPSULE 50 MG PO ×2 (09:48→17:42)
[2020-04-05] MEDS: PANTOPRAZOLE 40 MG TABLET PO ×2 (09:48→17:41)
[2020-04-05] MEDS: MONTELUKAST SODIUM 10 MG TABLET PO (09:48)
[2020-04-05] MEDS: ENOXAPARIN 40 MG/0.4 ML SYRINGE SUB-Q (09:48)
[2020-04-05] MEDS: LACTULOSE 20 GM/30 ML UDC PO ×2 (09:49→17:42)
--- NOTE | 2020-04-05 11:14 | P.PNIM_ITS ---
Progress Note: A&P Assessment and Plan (1) Pleural effusion, bilateral: Code(s): J90 - Pleural effusion, not elsewhere classified Status: Acute Assessment and Plan: S/p therapeutic/diagnostic thoracentesis; showing small b/l pleural effusions on repeat CXR. Possibly due to constrictive pericarditis vs questionable history of liver cirrhosis. Patient states his breathing continues to improve; Cr stable/improved at 1.[address] Gonzalez consulted and appreciate recommendations. Discussed with Dr. Gonzalez who would like him to be started on Lasix to improve fluid status. Pleural fluid analysis shows normal fluid with elevated RBCs; no organisms seen on Gram stain; rest of micro and labs pending * Will continue with 40 mg Lasix daily per Dr. 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 Possible etiology behind pleural effusions and LE swelling. Unclear etiology behind finding; no recent illness/infection, no history of cancer per patient; seemingly idiopathic at this point. 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 Gonzalez, but it is imperative that this is done after discharge. * Appreciate recs from Dr. Gonzalez * Will continue Indomethacin and colchacine per recommendations; monitor renal function closely * Monitor * Await further rec from Cardiology (3) AISHA (acute kidney injury): Code(s): N17.9 - Acute kidney failure, unspecified Status: Acute Assessment and Plan: Cr down to 1.20; improvement. Likely secondary to IV lasix use * Avoid nephrotoxic agents if at all possible; renally dose * Monitor daily due to Lasix, Indomethacin and colchacine use; consider holding on one or all meds if worsening function * Avoid additional fluids if possible given pleural effusions and LE swelling (4) Hypertension: Code(s): I10 - Essential (primary) hypertension Status: Chronic Assessment and Plan: BP 140s sys this morning; has been elevated recently * Hold Losartan and diuretics for now given AISHA * Metoprolol adjusted to succinate by Cardiology * Further recs from Cardiology appreciated * Hydralazine PRN with parameters (5) Hypertensive urgency: Code(s): I16.0 - Hypertensive urgency Status: Acute Assessment and Plan: This has appeared to have resolved. BP 140s sys this morning * see above plan (6) Hyperlipidemia: Code(s): E78.5 - Hyperlipidemia, unspecified Status: Chronic Assessment and Plan: * Hold Statin for now; likely resume this at discharge (7) DM2 (diabetes mellitus, type 2): Code(s): E11.9 - Type 2 diabetes mellitus without complications Status: Chronic Assessment and Plan: BGL low 100s today * Hold metformin * continue glipizide for now * Accuchecks ACHS, hypoglycemia protocol, correctional insulin, diabetic diet (8) GERD (gastroesophageal reflux disease): Code(s): K21.9 - Gastro-esophageal reflux disease without esophag
--- NOTE | 2020-04-05 11:14 | PM.IMPN ---
Progress Note: A&P Assessment and Plan (1) Pleural effusion, bilateral: Code(s): J90 - Pleural effusion, not elsewhere classified Status: Acute Assessment and Plan: S/p therapeutic/diagnostic thoracentesis; showing small b/l pleural effusions on repeat CXR. Possibly due to constrictive pericarditis vs questionable history of liver cirrhosis. Patient states his breathing continues to improve; Cr stable/improved at 1.[address] Gonzalez consulted and appreciate recommendations. Discussed with Dr. Gonzalez who would like him to be started on Lasix to improve fluid status. Pleural fluid analysis shows normal fluid with elevated RBCs; no organisms seen on Gram stain; rest of micro and labs pending Will continue with 40 mg Lasix daily per Dr. 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 Possible etiology behind pleural effusions and LE swelling. Unclear etiology behind finding; no recent illness/infection, no history of cancer per patient; seemingly idiopathic at this point. Patient states he is not going back to see his established quantitative manager for unclear reasons; recommended follow up with either his quantitative manager or Dr. Gonzalez, but it is imperative that this is done after discharge. Appreciate recs from Dr. Gonzalez Will continue Indomethacin and colchacine per recommendations; monitor renal function closely Monitor Await further rec from Cardiology (3) AISHA (acute kidney injury): Code(s): N17.9 - Acute kidney failure, unspecified Status: Acute Assessment and Plan: Cr down to 1.20; improvement. Likely secondary to IV lasix use Avoid nephrotoxic agents if at all possible; renally dose Monitor daily due to Lasix, Indomethacin and colchacine use; consider holding on one or all meds if worsening function Avoid additional fluids if possible given pleural effusions and LE swelling (4) Hypertension: Code(s): I10 - Essential (primary) hypertension Status: Chronic Assessment and Plan: BP 140s sys this morning; has been elevated recently Hold Losartan and diuretics for now given AISHA Metoprolol adjusted to succinate by Cardiology Further recs from Cardiology appreciated Hydralazine PRN with parameters (5) Hypertensive urgency: Code(s): I16.0 - Hypertensive urgency Status: Acute Assessment and Plan: This has appeared to have resolved. BP 140s sys this morning see above plan (6) Hyperlipidemia: Code(s): E78.5 - Hyperlipidemia, unspecified Status: Chronic Assessment and Plan: Hold Statin for now; likely resume this at discharge (7) DM2 (diabetes mellitus, type 2): Code(s): E11.9 - Type 2 diabetes mellitus without complications Status: Chronic Assessment and Plan: BGL low 100s today Hold metformin continue glipizide for now Accuchecks ACHS, hypoglycemia protocol, correctional insulin, diabetic diet (8) GERD (gastroesophageal reflux disease): Code(s): K21.9 - Gastro-esophageal reflux disease without esophagitis Status: Chronic Assessment and Plan: No acute issues Continue with pantoprazole (9) Elevated d-dimer: Code(s): R79.89 - Other specified abnormal findings of blood chemistry Status: Acute Assessment and Plan: US b/l LE and CTA chest negative for DVT and PE. Monitor Lovenox
[2020-04-05 12:57] LABS: Glucose Point of Care 136 (65-105)
[2020-04-05 14:00] VITALS: BP 145/93; PULSE 69; RESP 20; TEMP 36.3; O2SAT 100
[2020-04-05 17:52] LABS: Glucose Point of Care 121 (65-105)
[2020-04-05 22:00] VITALS: BP 136/92; PULSE 63; RESP 20; TEMP 36.5; O2SAT 98
[2020-04-06 00:33] LABS: Glucose Point of Care 172 (65-105)
[2020-04-06 04:53] LABS: Glucose Point of Care 99 (65-105)
[2020-04-06 06:00] VITALS: BP 153/93; PULSE 59; RESP 20; TEMP 36.5; O2SAT 99
[2020-04-06 06:24] LABS: Hematocrit 41.8 % (42.0-52.0); Hemoglobin 13.5 g/dL (14.0-18.0); Mean Corpuscular HGB Conc 32.3 g/dl (32-36); Mean Corpuscular Hemoglobin 31.3 pg (26-34); Mean Platelet Volume 10.9 fl (7.4-10.4); Platelet Count Result 206 k/mm3 (150-375); Red Blood Count 4.31 M/mm3 (4.6-6.20); Red Cell Distribution Width 15.9 % (11.5-14.5); White Blood Count 4.6 K/mm3 (4.5-10.0)
[2020-04-06 06:37] LABS: INR 1.4; Prothrombin Time 16.9 Seconds (11.1-14.7)
[2020-04-06 06:38] LABS: Partial Thromboplastin Time 35.9 SECONDS (22.3-36.8)
[2020-04-06 06:41] LABS: Alanine Aminotransferase 40 U/L (4-50); Albumin Level 4.1 g/dL (3.5-5.1); Alkaline Phosphatase 179 U/L (38-126); Aspartate Amino Transferase 56 U/L (17-59); Bilirubin,Total 1.6 mg/dL (0.2-1.3); Blood Urea Nitrogen 23 mg/dL (9-20); Calcium 8.6 mg/dL (8.4-10.2); Carbon Dioxide 21 mmol/L (22-30); Chloride 109 mmol/L (98-107); Estimated CRCL calculation 48 ml/min; Estimated Glomerular Filt Rate 50; Glucose 149 mg/dL (75-110); Magnesium 2.1 mg/dL (1.6-2.3); Potassium 3.5 mmol/L (3.4-5.0); Sodium 142 mmol/L (137-145)
[2020-04-06 07:40] LABS: Hepatitis B Surface Antigen Negative (Negative)
[2020-04-06 07:45] LABS: HAV RESULT Negative (Negative); Hepatitis B Core IgM Result Negative (Negative)
[2020-04-06 07:57] LABS: Hepatitis C Virus Antibody Negative (Negative)
--- NOTE | 2020-04-06 07:58 | PM.PNCARD ---
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 Will start Colchicine 0.6 mg BID and Indomethacin 50 mg BID. Has to monitor kidney function on NSAIDs. After 3 months of therapy, recheck echo for constrictive pericarditis. Change Lasix to Spironolactone given cirrhosis of liver as he still has mild edema of legs and rales in right lung base. Ammonia level is elevated. He has a remote history of binge alcohol drinking. Being followed by hospitalist. (2) Hyperlipidemia: Code(s): E78.5 - Hyperlipidemia, unspecified Status: Chronic (3) Hypertension: Code(s): I10 - Essential (primary) hypertension Status: Chronic Assessment and Plan: Mildly high. Changed Metoprolol Tartate to Succinate. Start Spironolactone 25 mg daily. (4) AISHA (acute kidney injury): Code(s): N17.9 - Acute kidney failure, unspecified Status: Acute (5) Pulmonary hypertension: Code(s): I27.20 - Pulmonary hypertension, unspecified Status: Acute Assessment and Plan: Probably due to untreated sleep apnea. Mod pulm hypertension on echo. (6) Sleep apnea: Code(s): G47.30 - Sleep apnea, unspecified Status: Acute Assessment and Plan: He related a history several years ago of severe sleep apnea but did not tolerate CPAP due to feeling of drowning with it. Discussed that he needs repeat sleep study and there's alternative treatment such as mandibular device. Subjective Date/time seen: 04/06/20 07:58 Denies chest pain or sob today. Exam Const: General: comfortable and no acute distress Neck: Neck: no JVD Carotids: no bruits Resp: Effort & Inspection: normal respiratory effort Auscultation: crackles (Right lung), no rhonchi and no wheezes Cardio: Rate: regular rate Rhythm: regular rhythm Heart sounds: no murmurs GI: Auscultation: normal bowel sounds Neuro: Speech: normal speech Extrem: Right lower extremity: edema Left lower extremity: edema Other: Mild edema of both legs Objective Data Vital Signs Vital Signs: Vital Signs - 24 hr 04/05/20 09:47 04/05/20 14:00 04/05/20 22:00 Temperature 97.4 F L 97.7 F Pulse Rate 74 69 63 Respiratory Rate 20 20 Blood Pressure 145/93 H 136/92 H Pulse Oximetry 100 98 04/06/20 06:00 Temperature 97.7 F Pulse Rate 59 L Respiratory Rate 20 Blood Pressure 153/93 H Pulse Oximetry 99 Intake/Output Intake/Output: Intake & Output 04/03/20 04/04/20 04/05/20 04/06/20 23:59 23:59 23:59 23:59 Intake Total 1690 2260 1290 300 Output Total 3750 475 825 225 Balance -2060 1785 465 75 Meds/Results Medications: Active Medications Generic Name Dose Route Start Last Admin Trade Name Freq PRN Reason Stop Dose Admin Atorvastatin Calcium 10 mg 04/03/20 09:00 04/03/20 09:06 Lipitor PO 10 mg DAILY KARLY Administration Colchicine 0.6 mg 04/03/20 21:00 04/05/20 21:09 Colchicine Po PO 0.6 mg Q12HR KARLY Administration Dextrose 12.5 gm 04/03/20 00:09 Dextrose 50% Syringe IV PUSH PRN PRN Hypoglycemia Protocol Enoxaparin Sodium 40 mg 04/03/20 09:00 04/05/20 09:48 Lovenox SUB-Q 40 mg DAILY KARLY Administration Fluticasone Propionate 1 spray 04/02/20 23:54 04/05/20 23:42 Flonase 0.05% Nasal [place] NASAL 1 spray DAILY PRN Administration Allergy Symptoms Glipizide 5 mg 04/03/20 09:00 04/05/20 09:48 Glucotrol PO 5 mg DAILY KARLY Administration Glucagon 1 mg 04/03/20 00:09 Glucagon For Inj IM PRN PRN Hypoglycemia Protocol Glucose 15 gm 04/03/20 00:09 Glutose 15 PO PRN PRN Hypoglycemia Protocol Hydralazine HCl 10 mg 04/03/20 00:52 04/05/20 06:14 Apresoline Hcl Inj IV PUS
[2020-04-06 08:29] LABS: Glucose Point of Care 94 (65-105)
[2020-04-06] MEDS: POTASSIUM CHLORIDE 20 MEQ TABLET PO (09:04)
[2020-04-06] MEDS: ENOXAPARIN 40 MG/0.4 ML SYRINGE SUB-Q (09:05)
[2020-04-06] MEDS: INDOMETHACIN 25 MG CAPSULE 50 MG PO ×2 (09:05→17:08)
[2020-04-06] MEDS: COLCHICINE 0.6 MG TABLET PO ×2 (09:06→21:07)
[2020-04-06] MEDS: glipiZIDE 5 MG TABLET PO (09:06)
[2020-04-06] MEDS: PANTOPRAZOLE 40 MG TABLET PO ×2 (09:06→17:08)
[2020-04-06] MEDS: MONTELUKAST SODIUM 10 MG TABLET PO (09:06)
[2020-04-06] MEDS: SPIRONOLACTONE 25 MG TABLET PO (09:08)
[2020-04-06 09:09] VITALS: PULSE 64
[2020-04-06] MEDS: METOPROLOL SUCCINATE EXT REL 50 MG TABCR PO (09:09)
--- NOTE | 2020-04-06 09:10 | P.PNIM_ITS ---
Progress Note: A&P Assessment and Plan (1) Pleural effusion, bilateral: Code(s): J90 - Pleural effusion, not elsewhere classified Status: Acute Assessment and Plan: S/p therapeutic/diagnostic thoracentesis; showing small b/l pleural effusions on repeat CXR. 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 Patient states his breathing continues to improve. Cr up to 1.[address] Gonzalez consulted and appreciate recommendations. Pleural fluid analysis shows normal fluid with elevated RBCs; no organisms seen on Gram stain, AFB culture negative to date; rest of micro and labs pending * Will continue with 15 mg spironolactone daily per Dr. 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 Possible etiology behind pleural effusions and LE swelling. Unclear etiology behind finding; no recent illness/infection, no history of cancer per patient; seemingly idiopathic at this point. 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 Gonzalez, but it is imperative that this is done after discharge. * Appreciate recs from Dr. Gonzaelz * Will continue Indomethacin and colchicine per recommendations; monitor renal function closely * Monitor fluid status * Await further rec from Cardiology * F/u with Cardiology as outpatient; will need Echo in 3 months to reassess (3) AISHA (acute kidney injury): Code(s): N17.9 - Acute kidney failure, unspecified Status: Acute Assessment and Plan: Cr up to 1.40;increased. Likely secondary to IV lasix and contrast induced * Avoid nephrotoxic agents if at all possible; renally dose * Monitor daily due to Lasix, Indomethacin and colchicine use; consider holding on one or all meds if worsening function * Avoid additional fluids if possible given pleural effusions and LE swelling (4) Hypertension: Code(s): I10 - Essential (primary) hypertension Status: Chronic Assessment and Plan: BP 150s sys this morning; has been elevated recently * Hold Losartan for now given AISHA * Metoprolol adjusted to succinate by Cardiology * Lasix switched to spironolactone by Cardiology given cirrhosis * Further recs from Cardiology appreciated * Hydralazine PRN with parameters (5) Hypertensive urgency: Code(s): I16.0 - Hypertensive urgency Status: Acute Assessment and Plan: This has appeared to have resolved. BP 140s sys this morning * see above plan (6) Hyperlipidemia: Code(s): E78.5 - Hyperlipidemia, unspecified Status: Chronic Assessment and Plan: * Hold Statin for now; likely resume this at discharge (7) DM2 (diabetes mellitus, type 2): Code(s): E11.9 - Type 2 diabetes mellitus without complications Status: Chronic Assessment and Plan: BGL 90s-140s today * Hold metformin * continue glipizide for now * Accuchecks ACHS, hypoglycemia protocol, correctional insulin, diabetic diet (8
--- NOTE | 2020-04-06 09:10 | PM.IMPN ---
Progress Note: A&P Assessment and Plan (1) Pleural effusion, bilateral: Code(s): J90 - Pleural effusion, not elsewhere classified Status: Acute Assessment and Plan: S/p therapeutic/diagnostic thoracentesis; showing small b/l pleural effusions on repeat CXR. 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 Patient states his breathing continues to improve. Cr up to 1.[address] Gonzalez consulted and appreciate recommendations. Pleural fluid analysis shows normal fluid with elevated RBCs; no organisms seen on Gram stain, AFB culture negative to date; rest of micro and labs pending Will continue with 15 mg spironolactone daily per Dr. 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 Possible etiology behind pleural effusions and LE swelling. Unclear etiology behind finding; no recent illness/infection, no history of cancer per patient; seemingly idiopathic at this point. 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 Gonzalez, but it is imperative that this is done after discharge. Appreciate recs from Dr. Gonzalez Will continue Indomethacin and colchicine per recommendations; monitor renal function closely Monitor fluid status Await further rec from Cardiology F/u with Cardiology as outpatient; will need Echo in 3 months to reassess (3) AISHA (acute kidney injury): Code(s): N17.9 - Acute kidney failure, unspecified Status: Acute Assessment and Plan: Cr up to 1.40;increased. Likely secondary to IV lasix and contrast induced Avoid nephrotoxic agents if at all possible; renally dose Monitor daily due to Lasix, Indomethacin and colchicine use; consider holding on one or all meds if worsening function Avoid additional fluids if possible given pleural effusions and LE swelling (4) Hypertension: Code(s): I10 - Essential (primary) hypertension Status: Chronic Assessment and Plan: BP 150s sys this morning; has been elevated recently Hold Losartan for now given AISHA Metoprolol adjusted to succinate by Cardiology Lasix switched to spironolactone by Cardiology given cirrhosis Further recs from Cardiology appreciated Hydralazine PRN with parameters (5) Hypertensive urgency: Code(s): I16.0 - Hypertensive urgency Status: Acute Assessment and Plan: This has appeared to have resolved. BP 140s sys this morning see above plan (6) Hyperlipidemia: Code(s): E78.5 - Hyperlipidemia, unspecified Status: Chronic Assessment and Plan: Hold Statin for now; likely resume this at discharge (7) DM2 (diabetes mellitus, type 2): Code(s): E11.9 - Type 2 diabetes mellitus without complications Status: Chronic Assessment and Plan: BGL 90s-140s today Hold metformin continue glipizide for now Accuchecks ACHS, hypoglycemia protocol, correctional insulin, diabetic diet (8) GERD (gastroesophageal reflux disease): Code(s): K21.9 - Gastro-esophageal reflux disease without esophagitis Status: Chronic Assessment and Plan: No acute issues Continue with pantoprazole (9) Elevated d-dimer: Code(s): R79.89 - Other specified abnormal findings of blood chemistry Sta
[2020-04-06 11:47] LABS: Glucose Point of Care 160 (65-105)
[2020-04-06 14:00] VITALS: BP 135/84; PULSE 61; RESP 18; TEMP 36.6; O2SAT 100
[2020-04-06] MEDS: LACTULOSE 20 GM/30 ML UDC PO (15:05)
[2020-04-06 17:11] LABS: Glucose Point of Care 90 (65-105)
[2020-04-06] MEDS: FLUTICASONE PROPIONATE 0.05% NA SPR 16 GM BTL (*BKC) 1 SPRAY NASAL (21:10)
[2020-04-06 21:24] VITALS: PULSE 71; RESP 21; O2SAT 98
[2020-04-06 21:27] LABS: Glucose Point of Care 130 (65-105)
[2020-04-06 22:00] VITALS: BP 152/89; PULSE 62; RESP 18; TEMP 36.2; O2SAT 97
[2020-04-07 06:00] VITALS: BP 145/98; PULSE 64; RESP 20; TEMP 36.7; O2SAT 97
[2020-04-07 06:03] LABS: Hematocrit 39.4 % (42.0-52.0); Hemoglobin 12.7 g/dL (14.0-18.0); Mean Corpuscular HGB Conc 32.2 g/dl (32-36); Mean Corpuscular Volume 96.1 fl (80-100); Platelet Count Result 218 k/mm3 (150-375); Red Cell Distribution Width 15.7 % (11.5-14.5); White Blood Count 4.2 K/mm3 (4.5-10.0)
[2020-04-07 06:20] LABS: Alanine Aminotransferase 38 U/L (4-50); Albumin Level 3.8 g/dL (3.5-5.1); Alkaline Phosphatase 160 U/L (38-126); Aspartate Amino Transferase 53 U/L (17-59); Bilirubin,Total 1.6 mg/dL (0.2-1.3); Blood Urea Nitrogen 22 mg/dL (9-20); Calcium 8.3 mg/dL (8.4-10.2); Carbon Dioxide 23 mmol/L (22-30); Chloride 106 mmol/L (98-107); Estimated CRCL calculation 56 ml/min; Estimated Glomerular Filt Rate 60; Glucose 125 mg/dL (75-110); Magnesium 2.1 mg/dL (1.6-2.3); Potassium 3.6 mmol/L (3.4-5.0); Sodium 137 mmol/L (137-145)
--- NOTE | 2020-04-07 08:21 | PM.PNCARD ---
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 Will start Colchicine 0.6 mg BID and Indomethacin 50 mg BID. Has to monitor kidney function on NSAIDs. After 3 months of therapy, recheck echo for constrictive pericarditis. Change Lasix to Spironolactone given cirrhosis of liver as he still has mild edema of legs and rales in right lung base. Start Lasix 40 mg daily due to persistent edema of legs. Ammonia level is elevated. He has a remote history of binge alcohol drinking. Being followed by hospitalist. (2) Hyperlipidemia: Code(s): E78.5 - Hyperlipidemia, unspecified Status: Chronic (3) Hypertension: Code(s): I10 - Essential (primary) hypertension Status: Chronic Assessment and Plan: Mildly high. Changed Metoprolol Tartate to Succinate. Start Spironolactone 25 mg daily. (4) AISHA (acute kidney injury): Code(s): N17.9 - Acute kidney failure, unspecified Status: Acute (5) Pulmonary hypertension: Code(s): I27.20 - Pulmonary hypertension, unspecified Status: Acute Assessment and Plan: Probably due to untreated sleep apnea. Mod pulm hypertension on echo. (6) Sleep apnea: Code(s): G47.30 - Sleep apnea, unspecified Status: Acute Assessment and Plan: He related a history several years ago of severe sleep apnea but did not tolerate CPAP due to feeling of drowning with it. Discussed that he needs repeat sleep study and there's alternative treatment such as mandibular device. Subjective Date/time seen: 04/07/20 08:21 Denies chest pain or sob. Exam Const: General: comfortable and no acute distress Neck: Neck: no JVD Carotids: no bruits Resp: Effort & Inspection: normal respiratory effort Auscultation: crackles (Right lung), no rhonchi and no wheezes Cardio: Rate: regular rate Rhythm: regular rhythm Heart sounds: no murmurs GI: Auscultation: normal bowel sounds Neuro: Speech: normal speech Extrem: Right lower extremity: edema Left lower extremity: edema Other: Mild edema of both legs Objective Data Vital Signs Vital Signs: Vital Signs - 24 hr 04/06/20 09:09 04/06/20 14:00 04/06/20 21:24 Temperature 97.8 F Pulse Rate 64 61 71 Respiratory Rate 18 21 H Blood Pressure 135/84 Pulse Oximetry 100 98 04/06/20 22:00 04/07/20 06:00 Temperature 97.1 F L 98.0 F Pulse Rate 62 64 Respiratory Rate 18 20 Blood Pressure 152/89 H 145/98 H Pulse Oximetry 97 97 Intake/Output Intake/Output: Intake & Output 04/04/20 04/05/20 04/06/20 04/07/20 23:59 23:59 23:59 23:59 Intake Total 2260 1290 1930 250 Output Total 475 825 450 200 Balance 9796 860 8398 50 Meds/Results Medications: Active Medications Generic Name Dose Route Start Last Admin Trade Name Freq PRN Reason Stop Dose Admin Atorvastatin Calcium 10 mg 04/03/20 09:00 04/03/20 09:06 Lipitor PO 10 mg DAILY KARLY Administration Colchicine 0.6 mg 04/03/20 21:00 04/06/20 21:07 Colchicine Po PO 0.6 mg Q12HR KARLY Administration Dextrose 12.5 gm 04/03/20 00:09 Dextrose 50% Syringe IV PUSH PRN PRN Hypoglycemia Protocol Enoxaparin Sodium 40 mg 04/03/20 09:00 04/06/20 09:05 Lovenox SUB-Q 40 mg DAILY KARLY Administration Fluticasone Propionate 1 spray 04/02/20 23:54 04/06/20 21:10 Flonase 0.05% Nasal [place] NASAL 1 spray DAILY PRN Administration Allergy Symptoms Glipizide 5 mg 04/03/20 09:00 04/06/20 09:06 Glucotrol PO 5 mg DAILY KARLY Administration Glucagon 1 mg 04/03/20 00:09 Glucagon For Inj IM PRN PRN Hypoglycemia Protocol Glucose 15 gm 04/03/20 00:09 Glutose 15 PO PRN PRN Hypoglycemia Protocol Hydralazin
[2020-04-07] MEDS: hydrALAZINE HCL 50 MG TABLET PO ×2 (09:09→17:16)
[2020-04-07] MEDS: LACTULOSE 20 GM/30 ML UDC PO (09:10)
[2020-04-07] MEDS: INDOMETHACIN 25 MG CAPSULE 50 MG PO ×2 (09:10→17:16)
[2020-04-07] MEDS: COLCHICINE 0.6 MG TABLET PO (09:10)
[2020-04-07] MEDS: FUROSEMIDE 40 MG TABLET PO (09:10)
[2020-04-07] MEDS: ENOXAPARIN 40 MG/0.4 ML SYRINGE SUB-Q (09:10)
[2020-04-07 09:11] VITALS: PULSE 64
[2020-04-07] MEDS: glipiZIDE 5 MG TABLET PO (09:11)
[2020-04-07] MEDS: METOPROLOL SUCCINATE EXT REL 50 MG TABCR PO (09:11)
[2020-04-07] MEDS: MONTELUKAST SODIUM 10 MG TABLET PO (09:11)
[2020-04-07] MEDS: PANTOPRAZOLE 40 MG TABLET PO ×2 (09:11→17:16)
[2020-04-07] MEDS: SPIRONOLACTONE 25 MG TABLET PO (09:11)
[2020-04-07 09:18] LABS: Glucose Point of Care 86 (65-105)
[2020-04-07 12:42] LABS: Glucose Point of Care 152 (65-105)
[2020-04-07 14:00] VITALS: BP 150/84; PULSE 64; RESP 16; TEMP 36.3; O2SAT 100
--- NOTE | 2020-04-07 14:32 | PM.DS ---
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 Patient states his breathing continues to improve and he did not get short of breath until walking down the [place] yesterday. Dr. Gonzalez consulted and recommended starting Spironolactone 25 mg daily and Lasix 40 mg daily. S/p therapeutic/diagnostic thoracentesis. Pleural fluid analysis shows normal fluid with elevated RBCs; no organisms seen on Gram stain, AFB culture negative to date; rest of micro and labs pending CXR showed small pleural effusions still on CXR, but his SOB is stable and not getting worse. Educated the patient on weighing himself daily, limiting salt intake, elevating his legs, and to call his core worker or primary care for further evaluation if symptoms began to worsen. 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 Possible etiology behind pleural effusions and LE swelling. Unclear etiology behind finding; no recent illness/infection, no history of cancer per patient; seemingly idiopathic at this point. Dr. Gonzalez evaluated the patient and started him on colchicine 0.6 mg q.12 and indomethacin 50 mg b.i.d. for the treatment. F/u with Cardiology as outpatient; will need Echo in 3 months to reassess. (3) AISHA (acute kidney injury): Code(s): N17.9 - Acute kidney failure, unspecified Status: Acute Assessment and Plan: Cr improved to 1.20. Likely secondary to IV lasix and contrast induced Avoid nephrotoxic agents if at all possible Will recheck BMP in 1 week and have him follow-up with his primary care provider (4) Hypertension: Code(s): I10 - Essential (primary) hypertension Status: Chronic Assessment and Plan: BP 140s sys this morning; has been elevated recently Will restart Losartan on hydralazine 50 mg b.i.d. by Cardiology. Recheck BMP in 1 week (5) Hypertensive urgency: Code(s): I16.0 - Hypertensive urgency Status: Acute Assessment and Plan: This has appeared to have resolved. BP 140s sys this morning see above plan (6) Hyperlipidemia: Code(s): E78.5 - Hyperlipidemia, unspecified Status: Chronic Assessment and Plan: Continue statin (7) DM2 (diabetes mellitus, type 2): Code(s): E11.9 - Type 2 diabetes mellitus without complications Status: Chronic Assessment and Plan: BGL 125-152s today Continue home medications. (8) GERD (gastroesophageal reflux disease): Code(s): K21.9 - Gastro-esophageal reflux disease without esophagitis Status: Chronic Assessment and Plan: No acute issues Continue with pantoprazole (9) Elevated d-dimer: Code(s): R79.89 - Other specified abnormal findings of blood chemistry Status: Acute Assessment and Plan: US b/l LE and CTA chest negative for DVT and PE. (10) Sleep apnea: Code(s): G47.30 - Sleep apnea, unspecified Status: Acute Assessment and Plan: Patient on CPAP at one time, but did not tolerate this; willing to try CPAP during this stay Discussed need for follow up with PCP about outpatient sleep study
[2020-04-07 14:39] LABS: Albumin Pleural Fluid 1.2 g/dL
[2020-04-08 00:19] LABS: Amylase, Pleural Fluid 33 U/L
[2020-04-08 04:39] LABS: Glucose Pleural Fluid 177 mg/dL
[2020-04-08 05:04] LABS: LDH Pleural Fluid 53 U/L; Total Protein Pleural Fluid <3.0 g/dL
--- NOTE | 2020-04-14 10:11 | PC.NURSE ---
Anaerobic, Aerobic and fungal cx are all negative.
== END 2020-04-07 17:35 | disposition home or self-care (01) | DRG 315 ==
LOC: ANHED 18:39 → ANH3MEDSUR 18:44
PROVIDERS: Nurse Practitioner; Physician Assistant; Admitting Provider Family Medicine; Emergency Provider General Practice; Visit Provider Family Medicine
DX: I31.1 Chronic constrictive pericarditis (principal); N17.9 Acute kidney failure, unspecified; J91.8 Pleural effusion in other conditions classified elsewhere; I27.20 Pulmonary hypertension, unspecified; K70.30 Alcoholic cirrhosis of liver without ascites; F10.10 Alcohol abuse, uncomplicated; I16.0 Hypertensive urgency; I10 Essential (primary) hypertension; E11.9 Type 2 diabetes mellitus without complications; K21.9 Gastro-esophageal reflux disease without esophagitis; E78.2 Mixed hyperlipidemia; R79.89 Other specified abnormal findings of blood chemistry; G47.30 Sleep apnea, unspecified; Z79.84 Long term (current) use of oral hypoglycemic drugs; Z79.899 Other long term (current) drug therapy
CPT/HCPCS: 32555; 36415; 36600; 71045; 71046; 71275; 76705; 80048; 80053; 80069; 80074; 80076; 81001; 82042; 82140; 82150; 82247; 82375; 82465; 82607; 82746; 82805; 82945; 83036; 83050; 83605; 83615; 83735; 83880; 83986; 84155; 84157; 84311; 84443; 84478; 84484; 85025; 85027; 85380; 85610; 85730; 87015; 87070; 87075; 87102; 87116; 87205; 87206; 88104; 88108; 88305; 89051; 93005; 93306; 93970; 94660; 96372; 96374; 96375; 96376; 97161; 97165; 99285; A9270; G0378; J0360; J1650; J1815; J1940; Q9967

== ENCOUNTER 2020-04-13 09:50 | Inpatient (IN) | payer MEDICARE, OTHER, SELFPAY ==
[2020-04-13] VITALS (8 sets, daily range): BP systolic 124–170; BP diastolic 71–104; PULSE 66–78; RESP 16–23; TEMP 36.5–36.8; O2SAT 94–100; BMI 30.4
--- NOTE | ~2020-04-13 | CT_ITS ---
EXAMINATION: CT abdomen pelvis wo con DATE: 04/14/2020 08:02 INDICATION: Cirrhosis of the liver. Abdominal distention. TECHNIQUE: Computed tomography (CT) of the abdomen and pelvis was performed without intravenous contr ast. Automated exposure control and iterative reconstruction technique were employed. The dose-length product was 779.34 mGy-cm. COMPARISON: Chest CT 04/02/2020 FINDINGS: The visualized portions of the lung bases demonstrate moderate-sized right and small left p leural effusions with dependent passive atelectasis. The heart size is normal. There are coronary art spring calcifications. No pericardial effusion. Pericardial calcifications are noted. The liver demonstr ates surface nodularity, consistent with cirrhosis. The spleen is normal in size. The gallbladder, pa ncreas, adrenal glands, and right kidney are normal. There is a 6 mm cyst in left kidney. The prostat e is mildly enlarged. There are no dilated loops of bowel. The appendix is normal. There are no patho logically enlarged lymph nodes. There is a small volume of ascites. Body wall edema is noted. There i s mild lumbar spondylosis. IMPRESSION: 1. Cirrhosis of the liver. 2. Moderate-sized right and small left pleural effusions. 3. Small volume of ascites. 4. Calcific pericarditis. Reviewed, dictated and finalized at location A.
--- NOTE | ~2020-04-13 | XR_ITS ---
EXAMINATION: XR chest 2V DATE: 04/13/2020 10:40 INDICATION: Shortness of breath. TECHNIQUE: Frontal and lateral views of the chest were obtained on 3 radiographs. COMPARISON: Chest 2 views 04/07/2020, chest CT 04/02/2020 FINDINGS: There are moderate-sized right and small left pleural effusions. There are airspace opaciti es at right lung base. No pneumothorax. The heart size is normal. IMPRESSION: 1. Moderate-sized right and small left pleural effusions with worsening on the right. 2. Worsened airspace opacities at right lung base, consistent with atelectasis versus pneumonia. Reviewed, dictated and finalized at location A.
--- NOTE | 2020-04-13 10:13 | ECG_ITS ---
Measurements Intervals [place] Rate: 75 P: 46 [place]: 162 QRS: 47 QRSD: 77 T: 48 QT: 395 QTc: 443 Interpretive Statements SINUS RHYTHM LOW QRS VOLTAGE IN LIMB LEADS BORDERLINE ST ABNORMALITY- INF/LAT LEADS BORDERLINE ECG Electronically Signed On 04-13-2020 10:34:46 CDT by Luis Gonzalez D.O.
[2020-04-13 11:53] LABS: Basophils Absolute Auto 0.1 K/mm3 (0.0-0.1); Eosinophils Percent Auto 0.8 % (0-4.4); Hematocrit 40.2 % (42.0-52.0); Immature Granulocyte Absolute 0.02 K/mm3 (0.00-0.031); Immature Granulocyte Percent A 0.4 % (0-0.5); Lymphocytes Absolute Auto 0.89 K/mm3 (0.9-3.2); Lymphocytes Percent Auto 18.4 % (18.3-44.2); Mean Corpuscular HGB Conc 32.3 g/dl (32-36); Mean Corpuscular Hemoglobin 31.2 pg (26-34); Mean Corpuscular Volume 96.4 fl (80-100); Mean Platelet Volume 10.9 fl (7.4-10.4); Monocytes Absolute Auto 0.8 K/mm3 (0.1-0.6); Monocytes Percent Auto 16.1 % (2.6-8.5); Neutrophils Absolute Auto 3.1 K/mm3 (1.3-6.7); Neutrophils Percent Auto 63.3 % (45.5-73.1); Platelet Count Result 219 k/mm3 (150-375); Red Blood Count 4.17 M/mm3 (4.6-6.20); Red Cell Distribution Width 15.9 % (11.5-14.5); White Blood Count 4.8 K/mm3 (4.5-10.0)
[2020-04-13 12:05] LABS: Ammonia 83 umol/L (9-30)
[2020-04-13 12:07] LABS: Alanine Aminotransferase 39 U/L (4-50); Albumin Level 4.5 g/dL (3.5-5.1); Alkaline Phosphatase 176 U/L (38-126); Aspartate Amino Transferase 52 U/L (17-59); Bilirubin,Total 1.5 mg/dL (0.2-1.3)
[2020-04-13 12:08] LABS: Blood Urea Nitrogen 26 mg/dL (9-20); Calcium 9.7 mg/dL (8.4-10.2); Carbon Dioxide 17 mmol/L (22-30); Chloride 109 mmol/L (98-107); Estimated Glomerular Filt Rate 38; Glucose 161 mg/dL (75-110); Sodium 140 mmol/L (137-145)
[2020-04-13 12:23] LABS: Partial Thromboplastin Time 34.8 SECONDS (22.3-36.8)
[2020-04-13 12:30] LABS: INR 1.5; Prothrombin Time 17.3 Seconds (11.1-14.7)
--- NOTE | 2020-04-13 12:44 | ED.SOB ---
HPI - SOB/Dyspnea General Chief Complaint: Shortness of Breath/Dyspnea Stated Complaint: SOB Time Seen by Provider: 04/13/20 10:28 History of Present Illness HPI Narrative: Patient is a 70-year-old male who presents ER with shortness of breath. Patient recently seen and evaluated for ascites and hepatic encephalopathy. He was discharged and going to follow-up appointment today. He was so dyspneic upon his evaluation at the primary care doctor that he was referred back to the ER. Patient reports persistent edema in his lower extremities and increased discomfort in his abdomen. Patient had a thoracentesis on his previous visit. Denies any fevers or chills or sweats. Patient has some difficulty giving a history but reports his confusion was much worse previously. New dx liver cirrhosis, yet to see GI/hepatology. Also being treated with indomethacin and colchicine for restrictive pericarditis by Dr. Gonzalez. Related Data Home Medications Medication Instructions Recorded Confirmed atorvastatin 10 mg PO DAILY 04/02/20 04/13/20 fluticasone propionate 1 spray INTRANASAL DAILY PRN 04/02/20 04/13/20 glipizide 5 mg PO DAILY 04/02/20 04/13/20 losartan 100 mg PO DAILY 04/02/20 04/13/20 metformin 1,000 mg PO BIDWM 04/02/20 04/13/20 montelukast 10 mg PO DAILY 04/02/20 04/13/20 omeprazole 20 mg PO BID 04/02/20 04/13/20 Allergies Allergy/AdvReac Type Severity Reaction Status Date / Time mold Allergy Intermediate Sneezing Verified 04/13/20 12:20 pollen extracts Allergy Intermediate Sneezing Verified 04/13/20 12:20 Review of Systems Review of Systems: ROS unobtainable: Yes unobtainable due to medical condition PMFSH Past Medical History Medical History DM2 (diabetes mellitus, type 2) GERD (gastroesophageal reflux disease) Hyperlipidemia Hypertension Surgical History Surgical History Surgical history unknown The patient denies any surgeries Family History Family History Sibling Cerebrovascular accident Hypertension Sibling Cerebrovascular accident Mother Diabetes mellitus Hypertension Social History Social History Social History: The patient tells me the a he has 1 child. He is lives with his . He desires to be a full code. He is retired. Lifelong nonsmoker. He denies any alcohol marijuana or illicit drugs. Smoking status: Never smoker Second hand tobacco smoke exposure: Yes Alcohol intake: never Substance use: never Substance use type: does not use Other substance usage details: social drinker Gender identity (if verbalized by the patient): Male Spiritual care concerns: No Exam Narrative: Exam Narrative: GENERAL: Well-appearing, well-nourished, and in no acute distress. HEAD: Normocephalic, atraumatic. EYES: PERRL and EOMI. CHEST: Clear to auscultation but diminished on the right lower lung field. No respiratory distress. HEART: Regular rate and rhythm. Normal peripheral pulses. ABDOMEN: Soft, nontender, moderately distended. EXTREMITIES: Normal range of motion. No edema. SKIN: Warm, dry, no rash. NEURO: Alert and oriented x3. PSYCH: Normal mood and affect. Course Course Emergency Course: Admit for observation. GI to be consulted Vital Signs Vital signs: Vital Signs Temperature 97.7 F 04/13/20 09:55 Pulse Rate 78 04/13/20 09:55 Respiratory Rate 20 04/13/20 09:55 Blood Pressure 124/71 04/13/20 09:55 Pulse Oximetry 99 04/13/20 09:55 Temperature 97.7 F 04/13/20 09:55 Pulse Rate 68 04/13/20 15:18 Respiratory Rate 16 04/13/20 15:18 Blood Pressure 149/99 H 04/13/20 15:18 Pulse Oximetry 99 04/13/20 15:18 MDM - SOB/Dyspnea Lab Data Result diagrams: 04/13/20 11:39 04/13/20 11:39 Labs: Lab Results
--- NOTE | 2020-04-13 16:52 | WPDGICN ---
Assessment and Plan Assessment and plan (1) Cirrhosis: Code(s): K74.60 - Unspecified cirrhosis of liver Status: Acute Assessment and Plan: Patient appears to have cirrhosis of liver confirmed by recent ultrasound. Would advise a CT scan of the abdomen to assess the liver more adequately. Additional lab tests to search for any potential contributing causes of cirrhosis is advised. Hepatitis a B and C serologies are negative. Patient does have abdominal distention likely related to bowel habits. A CT scan should help confirm whether ascites is present. Because of his elevated ammonia level and concern over underlying hepatic encephalopathy dose of lactulose will be increased to a b.i.d. dose. Xifaxan additionally may be of some added benefit. At some point an EGD may be of some benefit to determine whether patient has underlying esophageal varices. This can be performed later in admission or electively as an outpatient. (2) Pleural effusion on right: Code(s): J90 - Pleural effusion, not elsewhere classified Status: Acute Assessment and Plan: Treatment will be deferred to Cardiology service and diuretics under to the discretion. This may be limited by renal insufficiency. 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 Patient followed by Dr. Munroe primary care service. Patient is known to have cirrhosis of the liver from several years. It has been attributed to alcohol intake. Patient reports drinking alcohol sporadically over many year time. Patient recently hospitalized and was found to have rather large pleural effusion. It was felt that this was related to constrictive pericarditis. It is possible that cirrhosis could have contributed to this fluid retention. Patient was treated with diuretics and discharged 1 week ago. He also was given lactulose because of elevated ammonia level. He reports today being in the primary care service he became somewhat bloated and very weak. And for this reason sent to the emergency room. He feels much improved approved after a bowel movement today. He continues to have pedal edema. He continues to be short of breath with some exertion. Patient denies any signs of GI bleeding. He appears to be alert and oriented at the present time answering questions appropriately. Patient's dose of lactulose is only 30cc p.o. once daily is dose of L toe backed on is only 25 mg once daily. Other diuretics are on hold secondary to azotemia. Review of Systems Review of Systems: All systems reviewed & are unremarkable except as noted in HPI and below PMFSH Past Medical History Medical History DM2 (diabetes mellitus, type 2) GERD (gastroesophageal reflux disease) Hyperlipidemia Hypertension Surgical History Surgical History Surgical history unknown The patient denies any surgeries Family History Family History Sibling Cerebrovascular accident Hypertension Sibling Cerebrovascular accident Mother Diabetes mellitus Hypertension Social History Social History Social History: The patient tells me the a he has 1 child. He is lives with his . He desires to be a full code. He is retired. Lifelong nonsmoker. He denies any alcohol marijuana or illicit drugs. Smoking status: Never smoker Second hand tobacc
--- NOTE | 2020-04-13 17:35 | ADMGEN ---
This patient, Edmundo Islas, was admitted to [facility] Surg Room 325-01. Patient/family oriented to hospital policies and general routines including ID bracelet, bed and alarms, visiting hours, pain management, procedures, bathroom and other care routines, personal items, smoking policy, room service/diet, and visiting hours. Valuables list has been completed. Information on how to activate the Rapid Response Team has been discussed. Patient/Family are encouraged to report perceived risks to care and to ask questions if they do not understand what they are told or what they should do.
[2020-04-13] MEDS: LACTULOSE 20 GM/30 ML UDC PO (17:59)
[2020-04-13] MEDS: SPIRONOLACTONE 50 MG TABLET PO (17:59)
[2020-04-13 18:10] LABS: Glucose Point of Care 100 (65-105)
[2020-04-13 21:32] LABS: Ethanol < 10 mg/dL (<10)
[2020-04-13] MEDS: PANTOPRAZOLE 40 MG TABLET PO (22:18)
[2020-04-13] MEDS: COLCHICINE 0.6 MG TABLET PO (22:18)
--- NOTE | 2020-04-13 23:00 | PM.IMHP ---
H&P: HPI History of Present Illness Chief complaint: Worsening shortness of breath Narrative: Date and time of patient contact: 04/13/2020 at 11:00 p.m. Edmundo Islas is a 70 year old male with a past medical history of alcoholic cirrhosis, obstructive sleep apnea and pulmonary hypertension who presented back to the ER with increasing shortness of breath. The patient had just been discharged from the hospital on 04/07/2020 at which time he was diagnosed with restrictive pericarditis, hepatic encephalopathy, acute kidney injury, and hypertensive urgency. During his last hospitalization the patient had a CTA that was negative for pulmonary embolism and demonstrated moderate sized pleural effusions. He had a echocardiogram demonstrating moderate pulmonary hypertension, elevated right-sided are pressures, and restrictive pericarditis. He had a thoracentesis healing 700 mL fluid. He had been started on spironolactone, Lasix, colchicine, indomethacin and lactulose. The patient reports that his shortness breath was fairly stable until today. Today the patient had been evaluated at primary care physician's office as he was bloated and weak. He also reported feeling more acutely short of breath today. He has had any cough, congestion, fever or chills. His shortness of breath is worse with activity and better with rest. He denies any orthopnea. He does have obstructive sleep apnea and has been non adherent to his CPAP therapy at home for 4 years. He reports that his full Face Mask CPAP was collecting too much water and it would drip into his face. Currently he is wearing 1 of the hospitals nasal CPAP masks and is comfortable. He denies any lower extremity swelling or orthopnea. He has been compliant with his home diuretics and a low-sodium diet. He also states that he is eating a high-protein diet. He has not been weighing himself at home despite being instructed to weigh himself daily at the time of his last discharge. He denies any decreased urine output, changes in urinary frequency, weak urinary stream, hematuria or dysuria. He has not noticed a change in his chronic lower extremity edema. In fact, he did not seemed think he had much lower extremity edema. The patient is alert and oriented x4 and his speech is clear. He did fall asleep numerous times during my interview although this is not completely unexpected given that I interviewed the patient at 11:00 p.m. he reports that he has been taking his lactulose b.i.d. at home (however, the patient was prescribed lactulose daily at home) and has been having 2-3 soft stools a day. He denies any hematochezia or melena. He does not feel that he has been confused. Source of information: Patient report and review of past medical records. Review of Systems Review of Systems: Narrative: 12 systems were reviewed with pertinent positives and negatives per HPI. Except as documented in the HPI, all other systems were reviewed and are negative. [facility] Past Medical History Medical History (Updated 04/14/20 @ 01:33 by Maritza Castorena DO) Cirrhosis Suspected to be due to alcohol use. Diastolic heart failure Noted on echocardiogram from March 2020 in combined with pulmonary hypertension, reduced right ventricular systolic dysfunction and constrictive pericarditis DM2 (diabetes mellitus, type 2) GERD (gastroesophageal reflux disease) Hyperlipidemia Hypertension Obstructive sleep apnea Intolerant to CPAP Pulmonary hypertension Echocardiogram 04/03/2020: EF 65-70% Left ventricular septal wall motion abnormal consistent with constrictive pericarditis D shaped septum in systole suggesting right ventricular pressure overload Global longitudinal strain Reduced right ventricular systolic function Moderate pulmonary hypertension with RVSP of 54 hour Elevated right atrial pressures Surgical History Surgical History Surgical history
[2020-04-14 06:00] VITALS: BP 141/87; BP 144/93; PULSE 63; PULSE 65; RESP 18; RESP 20; TEMP 36.4; TEMP 36.8; O2SAT 100; O2SAT 97
[2020-04-14 06:06] LABS: Hematocrit 37.7 % (42.0-52.0); Hemoglobin 12.3 g/dL (14.0-18.0); Mean Corpuscular HGB Conc 32.6 g/dl (32-36); Mean Corpuscular Hemoglobin 31.4 pg (26-34); Mean Corpuscular Volume 96.2 fl (80-100); Mean Platelet Volume 10.8 fl (7.4-10.4); Platelet Count Result 201 k/mm3 (150-375); Red Blood Count 3.92 M/mm3 (4.6-6.20); Red Cell Distribution Width 16.2 % (11.5-14.5); White Blood Count 4.6 K/mm3 (4.5-10.0)
[2020-04-14 07:26] LABS: Glucose Point of Care 163 (65-105)
[2020-04-14 07:39] LABS: Alanine Aminotransferase 34 U/L (4-50); Albumin Level 4.1 g/dL (3.5-5.1); Alkaline Phosphatase 146 U/L (38-126); Aspartate Amino Transferase 43 U/L (17-59); Bilirubin,Total 1.6 mg/dL (0.2-1.3); Blood Urea Nitrogen 23 mg/dL (9-20); Calcium 9.3 mg/dL (8.4-10.2); Carbon Dioxide 20 mmol/L (22-30); Chloride 110 mmol/L (98-107); Estimated CRCL calculation 51 ml/min; Estimated Glomerular Filt Rate 47; Glucose 162 mg/dL (75-110); Sodium 139 mmol/L (137-145)
[2020-04-14 08:22] VITALS: PULSE 72
[2020-04-14] MEDS: SPIRONOLACTONE 50 MG TABLET PO ×2 (08:22→17:06)
[2020-04-14] MEDS: hydrALAZINE HCL 50 MG TABLET PO ×2 (08:22→17:07)
[2020-04-14] MEDS: METOPROLOL SUCCINATE EXT REL 50 MG TABCR PO (08:22)
[2020-04-14] MEDS: ATORVASTATIN 10 MG TABLET PO (08:24)
[2020-04-14] MEDS: glipiZIDE 5 MG TABLET PO (08:24)
[2020-04-14] MEDS: FUROSEMIDE 40 MG TABLET PO (08:24)
[2020-04-14] MEDS: INDOMETHACIN 25 MG CAPSULE 50 MG PO ×2 (08:24→17:06)
[2020-04-14] MEDS: MONTELUKAST SODIUM 10 MG TABLET PO (08:24)
[2020-04-14] MEDS: PANTOPRAZOLE 40 MG TABLET PO ×2 (08:24→20:17)
[2020-04-14] MEDS: LACTULOSE 20 GM/30 ML UDC PO ×2 (08:25→17:06)
[2020-04-14] MEDS: COLCHICINE 0.6 MG TABLET PO ×2 (08:25→20:17)
[2020-04-14] MEDS: FLUTICASONE PROPIONATE 0.05% NA SPR 16 GM BTL (*BKC) 1 SPRAY NASAL (08:29)
--- NOTE | 2020-04-14 09:51 | WPDGIPROGNO ---
Progress Note: A&P Additional Plan Patient alert and comfortable this morning. Tolerating diet. Appears oriented x3. Physical exam reveals him to be alert. Anicteric. Lungs are clear. Heart without murmur. Abdomen is protuberant. No organomegaly noted. Laboratory tests include CT scan. Suggest large right pleural effusion. Cirrhosis confirmed. Calcific pericarditis identified. Only a small amount of ascites. Impression 1. Alcoholic cirrhosis of liver. Patient now abstinent from alcohol. Agree with diuresis. continue dose of Aldactone advised. Will need to monitor electrolytes and renal function. Low-salt diet suggested. Continue lactulose for possible hepatic encephalopathy. Elective EGD may be beneficial at some time to exclude esophageal varices. 2. Calcific pericarditis. Subsequent congestive heart failure followed by Cardiology. Diuresis in progress. Renal function will need to be monitored. 3. Hepatic encephalopathy. Not clinically very significant at this time. He does have elevated ammonia. Would continue lactulose and Xifaxan if necessary. 4. Diabetes mellitus. Subjective Date/time seen: 04/14/20 09:51 Objective Data Vital Signs Vital Signs: Vital Signs - 24 hr 04/13/20 09:55 04/13/20 11:00 04/13/20 12:00 Temperature 36.5 C Pulse Rate 78 77 74 Respiratory Rate 20 20 20 Blood Pressure 124/71 135/79 167/102 H Pulse Oximetry 99 98 99 04/13/20 13:00 04/13/20 14:00 04/13/20 15:18 Temperature Pulse Rate 74 66 68 Respiratory Rate 20 18 16 Blood Pressure 170/104 H 159/100 H 149/99 H Pulse Oximetry 100 100 99 04/13/20 22:00 04/13/20 22:52 04/14/20 06:00 Temperature 36.8 C 36.8 C Pulse Rate 68 68 63 Respiratory Rate 18 23 H 18 Blood Pressure 146/87 H 141/87 H Pulse Oximetry 96 94 97 04/14/20 08:22 Temperature Pulse Rate 72 Respiratory Rate Blood Pressure Pulse Oximetry Intake/Output Intake/Output: Intake & Output 04/11/20 04/12/20 04/13/20 04/14/20 23:59 23:59 23:59 23:59 Intake Total 350 Output Total 500 Balance -150 Meds/Results Medications: Active Medications Generic Name Dose Route Start Last Admin Trade Name Freq PRN Reason Stop Dose Admin Acetaminophen 650 mg 04/13/20 13:51 Tylenol Tablet PO Q4H PRN Mild Pain (1-3) or Fever Hydrocodone Bitart/Acetaminophen 1 tab 04/13/20 13:51 [place] 5-325 Mg PO Q4H PRN Pain Rated 4-6 Atorvastatin Calcium 10 mg 04/14/20 09:00 04/14/20 08:24 Lipitor PO 10 mg DAILY KARLY Administration Colchicine 0.6 mg 04/13/20 21:00 04/14/20 08:25 Colchicine Po PO 0.6 mg Q12HR KARLY Administration Dextrose 12.5 gm 04/14/20 01:16 Dextrose 50% Syringe IV PUSH PRN PRN Hypoglycemia Protocol Fluticasone Propionate 1 spray 04/13/20 20:45 04/14/20 08:29 Flonase 0.05% Nasal [place] NASAL 1 spray DAILY PRN Administration Allergy Symptoms Furosemide 40 mg 04/14/20 17:00 Lasix Inj IV PUSH BID KARLY Glipizide 5 mg 04/14/20 09:00 04/14/20 08:24 Glucotrol PO 5 mg DAILY@0800 KARLY Administration Glucagon 1 mg 04/14/20 01:16 Glucagon For Inj IM PRN PRN Hypoglycemia Protocol Glucose 15 gm 04/14/20 01:16 Glutose 15 PO PRN PRN Hypoglycemia Protocol Hydralazine HCl 50 mg 04/14/20 08:00 04/14/20 08:22 Apresoline Tablet PO 50 mg BIDWM KARLY Administration Dextrose 1,000 mls @ 100 mls/hr 04/14/20 01:16 Dextrose 5% 1,000 Ml IVPB PRN PRN Hypoglycemia Protocol Indomethacin 50 mg 04/14/20 09:00 04/14/20 08:24 Indocin PO 50 mg BID KARLY Administration Insulin Aspart 2 - 5 units 04/14/20 08:00 04/14/20 08:29 Novolog SUB-Q Not Given TIDWM [facility] Protocol Lactulose 20 gm 04/13/20 17:00 04/14/20 08:25 Lactulose PO 20 gm BID KARLY Administration Metoprolol Succinate 50 mg 04/14/20 09:00 04/14/20 08:22 Topr
--- NOTE | 2020-04-14 10:18 | PM.CNCAR ---
Assessment and Plan Assessment and plan (1) Cirrhosis: Code(s): K74.60 - Unspecified cirrhosis of liver Status: Acute Assessment and Plan: On Spironolactone. (2) Pleural effusion: Code(s): J90 - Pleural effusion, not elsewhere classified Status: Acute Assessment and Plan: Change Furosemide 40 PO daily to 40 mg IV BID. (3) Sleep apnea: Code(s): G47.30 - Sleep apnea, unspecified Status: Acute (4) Constrictive pericarditis: Code(s): I31.1 - Chronic constrictive pericarditis Status: Acute Assessment and Plan: Continue Indomethacin and Colchicine. Plan for repeat echo in 3 months. If hemodynamics s/o persistent constrictive pericarditis, would refer to cardiothoracic surgeon to consdier pericardiectomy. (5) Hyperlipidemia: Code(s): E78.5 - Hyperlipidemia, unspecified Status: Chronic (6) Hypertension: Code(s): I10 - Essential (primary) hypertension Status: Chronic Assessment and Plan: Stable. 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 He has mild edema of both legs. Denies chest pain, orthopnea, PND. Echo on 04/03/20: EF 65-70%, abnormal septal motion s/o constrictive pericarditis, D-shape s/o RV pressure overload, RV systolic dysfunction, mild LAE, mild MR, abnormal MV inflow velocity s/o constrictive pericarditis, trace TR, mod pulm hypertension with RVSP 54 mmHg, trace pericardial effusion. Reason For Visit: Worsening shortness of breath Review of Systems Review of Systems: All systems reviewed & are unremarkable except as noted in HPI and below Constitutional: Constitutional: Reports as per HPI, Denies chills and Reports fatigue Cardiovascular: Cardiovascular: Reports as per HPI, Denies chest pain, Reports leg edema and Denies lightheadedness Respiratory: Respiratory: Reports as per HPI and Reports dyspnea Gastrointestinal: Gastrointestinal: Reports as per HPI and Denies abdominal pain Genitourinary: Genitourinary: Reports as per HPI Musculoskeletal: Musculoskeletal: Reports as per HPI Neurologic: Reports as per HPI and Denies Abnormal speech present [facility] Past Medical History Medical History (Updated 04/14/20 @ 01:33 by Maritza Castorena DO) Cirrhosis Suspected to be due to alcohol use. Diastolic heart failure Noted on echocardiogram from March 2020 in combined with pulmonary hypertension, reduced right ventricular systolic dysfunction and constrictive pericarditis DM2 (diabetes mellitus, type 2) GERD (gastroesophageal reflux disease) Hyperlipidemia Hypertension Obstructive sleep apnea Intolerant to CPAP Pulmonary hypertension Echocardiogram 04/03/2020: EF 65-70% Left ventricular septal wall motion abnormal consistent with constrictive pericarditis D shaped septum in systole suggesting right ventricular pressure overload Global longitudinal strain Reduced right ventricular systolic function Moderate pulmonary hypertension with RVSP of 54 hour Elevated right atrial pressures Surgical History Surgical History Surgical history unknown The patient denies any surgeries Family History Family History Sibling Cerebrovascular accident Hypertension Sibling Cerebrovascular accident Mother Diabetes mellitus Hypertension Social History Social History (Reviewed 04/14/20 @ 0
[2020-04-14 14:00] VITALS: BP 98/54; PULSE 54; RESP 18; TEMP 36.4; O2SAT 95
--- NOTE | 2020-04-14 14:00 | PM.IMPN ---
Progress Note: A&P Assessment and Plan (1) Pleural effusion, bilateral: Code(s): J90 - Pleural effusion, not elsewhere classified Status: Acute Assessment and Plan: The ability to diurese the patient is somewhat limited given his recurrent acute kidney injury. At this time I will continue patient's Lasix and gastroenterology has increase the patient's spironolactone to 50 mg b.i.d.. Monitor strict I&Os. Given his renal insufficiency a will hold metformin and lisinopril. Will consult cardiology for recommendations. The patient may benefit from repeat thoracentesis if diuresis fails. (2) AISHA (acute kidney injury): Code(s): N17.9 - Acute kidney failure, unspecified Status: Acute Assessment and Plan: Creatinine slightly better at 1.50 today but still above his baseline. Will continue to hold metformin and lisinopril. Does remain on colchicine and indomethacin for constrictive pericarditis. Will continue to monitor. (3) Hepatic encephalopathy: Code(s): K72.90 - Hepatic failure, unspecified without coma Status: Acute Assessment and Plan: Mentation improved today. GI following. Ammonia level 83 on admission which is lower than last check. Will continue lactulose and monitor. (4) Cirrhosis: Qualifiers: Hepatic cirrhosis type: alcoholic cirrhosis Ascites presence: with ascites Qualified Code(s): K70.31 - Alcoholic cirrhosis of liver with ascites Code(s): K74.60 - Unspecified cirrhosis of liver Status: Acute Assessment and Plan: Alcoholic cirrhosis. Patient remains abstinent from alcohol. GI consulted and appreciate input. Will continue IV Lasix and oral spironolactone. Also continue lactulose. CT scan abdomen/pelvis today with cirrhosis, moderate-sized right and small left pleural effusions and small volume of ascites along with calcific pericarditis. Will continue to monitor. 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 Remains on indomethacin and colchicine. Will continue to monitor. Per Cardiology, plan for repeat echocardiogram in 3 months. (6) DM2 (diabetes mellitus, type 2): Qualifiers: Diabetes mellitus complication status: with hyperglycemia Diabetes mellitus physician pediatrician insulin use: without retirement use Qualified Code(s): E11.65 - Type 2 diabetes mellitus with hyperglycemia Code(s): E11.9 - Type 2 diabetes mellitus without complications Status: Chronic Assessment and Plan: Glucose reviewed on 04/14/2020. Glucose level low this evening. Will hold glipizide. Metformin already on hold. Sliding scale insulin available as needed. Will continue to monitor. (7) Sleep apnea: Qualifiers: Sleep apnea type: obstructive Qualified Code(s): G47.33 - Obstructive sleep apnea (adult) (pediatric) Code(s): G47.30 - Sleep apnea, unspecified Status: Acute Assessment and Plan: Tolerating CPAP. Will continue to monitor. Would benefit from new sleep study as outpatient as he has not used his own CPAP in 4 years. (8) DVT prophylaxis: Code(s): Z29.9 - Encounter for prophylactic measures, unspecified Status: Acute Assessment and Plan: SCDs. Time Spent With Patient Time with patient: 15 - 25 minutes Subjective Date/time seen: 04/14/20 14:00 Interval history: Date of Service: 04/14/2020. Admitted with pleural effusion, AISHA. Known constrictive pericarditis and cirrhosis. Eating lunch. Denies abdominal pain, nausea, vomiting. No chest pain. Shortness of breath improved. Still has edema in legs. Review of Systems Review of Systems: Narrative: Feeling better. Constitutional: Constitutional: Denies chills and Denies fever(s) ENT: Denies dysphagia Cardiovascular: Cardiovascular: Denies chest pain and Reports leg mateusz
[2020-04-14 15:53] LABS: Glucose Point of Care 103 (65-105)
[2020-04-14] MEDS: FUROSEMIDE INJ 40 MG/4 ML VIAL IV PUSH (17:07)
[2020-04-14 17:51] LABS: Glucose Point of Care 58 (65-105)
[2020-04-14 20:40] LABS: Glucose Point of Care 218 (65-105)
[2020-04-14 22:00] VITALS: BP 138/79; PULSE 69; RESP 18; TEMP 36.4; O2SAT 100
[2020-04-15 05:51] LABS: Hematocrit 38.1 % (42.0-52.0); Hemoglobin 12.4 g/dL (14.0-18.0); Mean Corpuscular HGB Conc 32.5 g/dl (32-36); Mean Corpuscular Hemoglobin 31.2 pg (26-34); Mean Corpuscular Volume 95.7 fl (80-100); Mean Platelet Volume 11.2 fl (7.4-10.4); Platelet Count Result 185 k/mm3 (150-375); Red Blood Count 3.98 M/mm3 (4.6-6.20); White Blood Count 4.5 K/mm3 (4.5-10.0)
[2020-04-15 06:12] LABS: Blood Urea Nitrogen 21 mg/dL (9-20); Calcium 9.1 mg/dL (8.4-10.2); Carbon Dioxide 20 mmol/L (22-30); Chloride 107 mmol/L (98-107); Estimated CRCL calculation 51 ml/min; Estimated Glomerular Filt Rate 47; Glucose 106 mg/dL (75-110); Potassium 3.8 mmol/L (3.4-5.0); Sodium 138 mmol/L (137-145)
[2020-04-15 07:59] LABS: Glucose Point of Care 95 (65-105)
--- NOTE | 2020-04-15 07:59 | PM.PNCARD ---
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 He is agreeable to be transferred to [facility]. Continue with diuresis, Indomethacin and Colchicine. (4) Hyperlipidemia: Code(s): E78.5 - Hyperlipidemia, unspecified Status: Chronic (5) Hypertension: Code(s): I10 - Essential (primary) hypertension Status: Chronic Assessment and Plan: Stable. (6) CKD (chronic kidney disease) stage 3, GFR 30-59 ml/min: Code(s): N18.3 - Chronic kidney disease, stage 3 (moderate) Status: Acute Subjective Date/time seen: 04/15/20 07:59 Reports feeling better, less sob after diuresis. No chest pains. Exam Const: General: comfortable and no acute distress Neck: Neck: no JVD Carotids: no bruits Resp: Effort & Inspection: normal respiratory effort Auscultation: no rhonchi, no wheezes and diminished lung sounds Cardio: Rate: regular rate Rhythm: regular rhythm Heart sounds: Murmur heart sound present (pericardial knock) GI: Inspection: distended Neuro: Speech: normal speech Extrem: Right lower extremity: edema Left lower extremity: edema Other: Mild edema of both legs Objective Data Vital Signs Vital Signs: Vital Signs - 24 hr 04/14/20 08:22 04/14/20 14:00 04/14/20 22:00 Temperature 97.5 F L 97.5 F L Pulse Rate 72 54 L 69 Respiratory Rate 18 18 Blood Pressure 98/54 L 138/79 Pulse Oximetry 95 100 Intake/Output Intake/Output: Intake & Output 04/12/20 04/13/20 04/14/20 04/15/20 23:59 23:59 23:59 23:59 Intake Total 1500 300 Output Total 1450 600 Balance 50 -300 Meds/Results Medications: Active Medications Generic Name Dose Route Start Last Admin Trade Name Freq PRN Reason Stop Dose Admin Acetaminophen 650 mg 04/13/20 13:51 Tylenol Tablet PO Q4H PRN Mild Pain (1-3) or Fever Hydrocodone Bitart/Acetaminophen 1 tab 04/13/20 13:51 [place] 5-325 Mg PO Q4H PRN Pain Rated 4-6 Atorvastatin Calcium 10 mg 04/14/20 09:00 04/14/20 08:24 Lipitor PO 10 mg DAILY KARLY Administration Colchicine 0.6 mg 04/13/20 21:00 04/14/20 20:17 Colchicine Po PO 0.6 mg Q12HR KARLY Administration Dextrose 12.5 gm 04/14/20 01:16 Dextrose 50% Syringe IV PUSH PRN PRN Hypoglycemia Protocol Fluticasone Propionate 1 spray 04/13/20 20:45 04/14/20 08:29 Flonase 0.05% Nasal [place] NASAL 1 spray DAILY PRN Administration Allergy Symptoms Furosemide 40 mg 04/14/20 17:00 04/14/20 17:07 Lasix Inj IV PUSH 40 mg BID KARLY Administration Glipizide 5 mg 04/14/20 09:00 04/14/20 08:24 Glucotrol PO 5 mg DAILY@0800 KARLY Administration Glucagon 1 mg 04/14/20 01:16 Glucagon For Inj IM PRN PRN Hypoglycemia Protocol Glucose 15 gm 04/14/20 01:16 Glutose 15 PO PRN PRN Hypoglycemia Protocol Hydralazine HCl 50 mg 04/14/20 08:00 04/14/20 17:07 Apresoline Tablet PO 50 mg BIDWM KARLY Administration Dextrose 1,000 mls @ 100 mls/hr 04/14/20 01:16 Dextrose 5% 1,000 Ml IVPB PRN PRN Hypoglycemia Protocol Indomethacin 50 mg 04/14/20 09:00 04/14/20 1
[2020-04-15] MEDS: SPIRONOLACTONE 50 MG TABLET PO ×2 (08:47→18:24)
[2020-04-15] MEDS: FUROSEMIDE INJ 40 MG/4 ML VIAL IV PUSH ×2 (08:47→17:25)
[2020-04-15] MEDS: MONTELUKAST SODIUM 10 MG TABLET PO (08:47)
[2020-04-15] MEDS: ATORVASTATIN 10 MG TABLET PO (08:47)
[2020-04-15] MEDS: INDOMETHACIN 25 MG CAPSULE 50 MG PO ×2 (08:47→17:25)
[2020-04-15 08:48] VITALS: PULSE 76
[2020-04-15] MEDS: COLCHICINE 0.6 MG TABLET PO ×2 (08:48→20:00)
[2020-04-15] MEDS: LACTULOSE 20 GM/30 ML UDC PO ×2 (08:48→18:24)
[2020-04-15] MEDS: METOPROLOL SUCCINATE EXT REL 50 MG TABCR PO (08:48)
[2020-04-15] MEDS: hydrALAZINE HCL 50 MG TABLET PO ×2 (08:49→17:25)
[2020-04-15] MEDS: PANTOPRAZOLE 40 MG TABLET PO ×2 (08:49→20:00)
--- NOTE | 2020-04-15 09:22 | WPDGIPROGNO ---
Progress Note: A&P Additional Plan Patient alert and comfortable this morning. Tolerating diet. Physical exam reveals Vital Signs to be stable. Lungs are clear. Heart without murmur. Abdomen is soft and nontender. somewhat protuberant. Impression 1. Alcoholic cirrhosis of the liver. Patient no longer drinking. Continue diuretics per Cardiology service dose of Aldactone increased on admission. Lasix also to be given. Low-salt diet. Consider elective EGD to assess for presence of varices. This can be performed electively as an outpatient but may consider if he remains in the hospital this week. 2. Constrictive pericarditis. Congestive heart failure on this basis. Cardiology following with diuretics per the recommendation. 3. Pleural effusion. Appears to have had a good response to diuresis. Subjective Date/time seen: 04/15/20 09:22 Objective Data Vital Signs Vital Signs: Vital Signs - 24 hr 04/14/20 14:00 04/14/20 22:00 04/15/20 08:48 Temperature 36.4 C L 36.4 C L Pulse Rate 54 L 69 76 Respiratory Rate 18 18 Blood Pressure 98/54 L 138/79 Pulse Oximetry 95 100 Intake/Output Intake/Output: Intake & Output 04/12/20 04/13/20 04/14/20 04/15/20 23:59 23:59 23:59 23:59 Intake Total 1500 300 Output Total 1450 600 Balance 50 -300 Meds/Results Medications: Active Medications Generic Name Dose Route Start Last Admin Trade Name Freq PRN Reason Stop Dose Admin Acetaminophen 650 mg 04/13/20 13:51 Tylenol Tablet PO Q4H PRN Mild Pain (1-3) or Fever Hydrocodone Bitart/Acetaminophen 1 tab 04/13/20 13:51 [place] 5-325 Mg PO Q4H PRN Pain Rated 4-6 Atorvastatin Calcium 10 mg 04/14/20 09:00 04/15/20 08:47 Lipitor PO 10 mg DAILY KARLY Administration Colchicine 0.6 mg 04/13/20 21:00 04/15/20 08:48 Colchicine Po PO 0.6 mg Q12HR KARLY Administration Dextrose 12.5 gm 04/14/20 01:16 Dextrose 50% Syringe IV PUSH PRN PRN Hypoglycemia Protocol Fluticasone Propionate 1 spray 04/13/20 20:45 04/14/20 08:29 Flonase 0.05% Nasal [place] NASAL 1 spray DAILY PRN Administration Allergy Symptoms Furosemide 40 mg 04/14/20 17:00 04/15/20 08:47 Lasix Inj IV PUSH 40 mg BID KARLY Administration Glipizide 5 mg 04/14/20 09:00 04/14/20 08:24 Glucotrol PO 5 mg DAILY@0800 KARLY Administration Glucagon 1 mg 04/14/20 01:16 Glucagon For Inj IM PRN PRN Hypoglycemia Protocol Glucose 15 gm 04/14/20 01:16 Glutose 15 PO PRN PRN Hypoglycemia Protocol Hydralazine HCl 50 mg 04/14/20 08:00 04/15/20 08:49 Apresoline Tablet PO 50 mg BIDWM KARLY Administration Dextrose 1,000 mls @ 100 mls/hr 04/14/20 01:16 Dextrose 5% 1,000 Ml IVPB PRN PRN Hypoglycemia Protocol Indomethacin 50 mg 04/14/20 09:00 04/15/20 08:47 Indocin PO 50 mg BID KARLY Administration Insulin Aspart 2 - 5 units 04/14/20 08:00 04/15/20 08:47 Novolog SUB-Q Not Given TIDWM [facility] Protocol Lactulose 20 gm 04/13/20 17:00 04/15/20 08:48 Lactulose PO 20 gm BID KARLY Administration Metoprolol Succinate 50 mg 04/14/20 09:00 04/15/20 08:48 Toprol Xl PO 50 mg QAM KARLY Administration Montelukast Sodium 10 mg 04/14/20 09:00 04/15/20 08:47 Singulair PO 10 mg DAILY KARLY Administration Morphine Sulfate 4 mg 04/13/20 13:51 Morphine Sulfate Inj IV PUSH Q2H PRN Pain Rated 7-10 Ondansetron HCl 4 mg 04/13/20 13:51 Zofran Inj IV PUSH Q4H PRN Nausea Pantoprazole Sodium 40 mg 04/13/20 21:00 04/15/20 08:49 Protonix PO 40 mg Q12HR KARLY Administration Spironolactone 50 mg 04/13/20 17:00 04/15/20 08:47 Aldactone PO 50 mg BID KARLY Administration Radiology Results: ITS Impressions Chest X-Ray 04/13/20 10:44 IMPRESSION: 1. Moderate-sized right and small left pleural effusions with worsening on
[2020-04-15 12:47] LABS: Glucose Point of Care 166 (65-105)
--- NOTE | 2020-04-15 12:50 | PM.IMPN ---
Progress Note: A&P Assessment and Plan (1) Pleural effusion, bilateral: Code(s): J90 - Pleural effusion, not elsewhere classified Status: Acute Assessment and Plan: Persistent effusions noted on admission. Cardiology consulted and appreciate input. Now on IV Lasix and spironolactone but diuresis difficult given his multitude of issues. Cardiology has spoken with patient about transfer to [place]. Apparently, Cardiology was able to speak to arc furnace operator at [facility] with patient accepted in transfer. Will continue to monitor while awaiting transfer this time. Patient remains on room air. (2) AISHA (acute kidney injury): Code(s): N17.9 - Acute kidney failure, unspecified Status: Acute Assessment and Plan: Creatinine now remaining stable at 1.50. Continue to hold metformin and lisinopril. Remains on colchicine and indomethacin for constrictive pericarditis. Will need to continue to monitor at [facility]. 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 Remains on indomethacin and colchicine. Also on IV Lasix. Plan to transfer to [place] for higher level of care as noted above. (4) Hepatic encephalopathy: Code(s): K72.90 - Hepatic failure, unspecified without coma Status: Acute Assessment and Plan: Ammonia level 83 on admission which is lower than last check. Mentation presently stable. GI consulted and appreciate input. Will continue lactulose and monitor. (5) Cirrhosis: Qualifiers: Hepatic cirrhosis type: alcoholic cirrhosis Ascites presence: with ascites Qualified Code(s): K70.31 - Alcoholic cirrhosis of liver with ascites Code(s): K74.60 - Unspecified cirrhosis of liver Status: Acute Assessment and Plan: Alcoholic cirrhosis. Patient remains abstinent from alcohol. GI consulted and appreciate input. Remains on IV Lasix and oral spironolactone. Also continue lactulose. CT scan abdomen/pelvis today with cirrhosis, moderate-sized right and small left pleural effusions and small volume of ascites along with calcific pericarditis. Will continue to monitor. (6) DM2 (diabetes mellitus, type 2): Qualifiers: Diabetes mellitus terminal system operator insulin use: without terminal system operator use Diabetes mellitus complication status: with hyperglycemia Qualified Code(s): E11.65 - Type 2 diabetes mellitus with hyperglycemia Code(s): E11.9 - Type 2 diabetes mellitus without complications Status: Chronic Assessment and Plan: Glucose reviewed on 04/15/2020. Glucose level now normal range. Continue to hold glipizide and metformin. Sliding scale insulin available as needed. Will monitor. (7) Sleep apnea: Qualifiers: Sleep apnea type: obstructive Qualified Code(s): G47.33 - Obstructive sleep apnea (adult) (pediatric) Code(s): G47.30 - Sleep apnea, unspecified Status: Acute Assessment and Plan: Tolerating CPAP. Will continue to monitor. Would benefit from new sleep study as outpatient as he has not used his own CPAP in 4 years. (8) DVT prophylaxis: Code(s): Z29.9 - Encounter for prophylactic measures, unspecified Status: Acute Assessment and Plan: SCDs. Time Spent With Patient Time with patient: 15 - 25 minutes Subjective Date/time seen: 04/15/20 12:50 Interval history: Date of Service: 04/15/2020. Admitted with pleural effusion, AISHA. Known constrictive pericarditis and cirrhosis. In bed resting. States he is feeling better. Denies current chest pain or shortness of breath. Does still have swelling in legs. No abdominal pain. Review of Systems Review of Systems: Narrative: Feeling better. Constitutional: Constitutional: Denies chills and Denies fever(s) ENT: Denies dysphagia and Denies headache(s) Cardiovascular: Cardiovascular: Denies chest pain
[2020-04-15 14:00] VITALS: BP 145/81; PULSE 67; RESP 18; TEMP 36.7; O2SAT 100
[2020-04-15 18:28] LABS: Glucose Point of Care 126 (65-105)
--- NOTE | 2020-04-15 19:20 | PM.TDS ---
Transfer Discharge Sum: Prov Provider Date of admission: 04/14/20 14:39 Primary care physician: TIFFANIE,GERALD Freitas M.D. Admitting clinician: Tiago Madsen MD Attending physician on admission: Hadley Madsen Consults: 04/13/20 13:53 Consult to Physician Routine Comment: Spoke with office @ [phone] ([facility]) Consulting Provider: Chan Reis truck terminal manager/MD group to consult: fabi Reason for consultation: cirrhosis Has provider been notified: Yes 04/14/20 Consult to Physician Routine Comment: 04/14 OFFICE NOTIFIED @ [phone] (,) Consulting Provider: Luis Gonzalez truck terminal manager/ group to consult: Dr. Gonzalez Reason for consultation: Recurrent pleural effusion, restrictive pericarditis Has provider been notified: Yes Attending physician on discharge: Sunita Bergeron Discharging clinician: Sunita Bergeron Anticipated date of transfer: 04/15/20 Receiving physician/facility: Dr. 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 Status: Acute (4) Hepatic encephalopathy: Code(s): K72.90 - Hepatic failure, unspecified without coma Status: Acute (5) Cirrhosis: Qualifiers: Hepatic cirrhosis type: alcoholic cirrhosis Ascites presence: with ascites Qualified Code(s): K70.31 - Alcoholic cirrhosis of liver with ascites Code(s): K74.60 - Unspecified cirrhosis of liver Status: Acute (6) DM2 (diabetes mellitus, type 2): Qualifiers: Diabetes mellitus watermelon harvesting 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 insulin use: without mcfp use Diabetes mellitus complication status: with hyperglycemia Qualified Code(s): E11.65 - Type 2 diabetes mellitus with hyperglycemia Code(s): E11.9 - Type 2 diabetes mellitus without complications Status: Chronic (7) Sleep apnea: Qualifiers: Sleep apnea type: obstructive Qualified Code(s): G47.33 - Obstructive sleep apnea (adult) (pediatric) Code(s): G47.30 - Sleep apnea, unspecified Status: Acute Transfer Discharge Sum: Med Medications Active and Home Medications: Home Medications atorvastatin 10 mg PO DAILY 04/02/20 [History Confirmed 04/13/20] fluticasone propionate 1 spray INTRANASAL DAILY PRN 04/02/20 [History Confirmed 04/13/20] glipizide 5 mg PO DAILY 04/02/20 [History Confirmed 04/13/20] losartan 100 mg PO DAILY 04/02/20 [History Confirmed 04/13/20] metformin 1,000 mg PO BIDWM 04/02/20 [History Confirmed 04/13/20] montelukast 10 mg PO DAILY 04/02/20 [History Confirmed 04/13/20] omeprazole 20 mg PO BID 04/02/20 [History Confirmed 04/13/20] colchicine [Colcrys] 0.6 mg PO Q12HR 30 Days #60 tablet 04/07/20 [Rx Confirmed 04/13/20] furosemide 40 mg PO DAILY 30 Days #30 tablet 04/07/20 [Rx Confirmed 04/13/20] hydralazine 50 mg PO BIDWM 30 Days #60 tablet 04/07/20 [Rx Confirmed 04/13/20] indomethacin 50 mg PO BID 30 Days #120 cap 04/07/20 [Rx Confirmed 04/13/20] lactulose 20 g PO QAM 30 Days #900 ml 04/07/20 [Rx Confirmed 04/13/20] metoprolol succinate 50 mg PO QAM 30 Days #30 tablet 04/07/20 [Rx Confirmed 04/13/20] spironolactone 25 mg PO QAM 30 Days #30 tablet 04/07/20 [Rx Confirmed 04/13/20] Active Medications Acetaminophen (Tylenol Tablet) 650 mg PO Q4H PRN PRN Reason: Mild Pain (1-3) or Fever Hydrocodone Bitart/Acetaminophen ([place] 5-325 Mg) 1 tab PO Q4H PRN PRN Reason: Pain Rated 4-6 Atorvastatin Calcium (Lipitor) 10 mg PO DAILY [facility] Last Admin: 04/15/20 08:47 Dose: 10 mg Documented by: Colchicine (Colchicine Po) 0.6 mg PO Q12HR [facility] Last Admin: 04/15/20 08:48 Dose: 0.6 mg Documented by: D
[2020-04-15 21:18] LABS: Glucose Point of Care 198 (65-105)
[2020-04-15 22:00] VITALS: BP 99/64; PULSE 65; RESP 20; TEMP 36.4; O2SAT 98
--- NOTE | 2020-04-15 23:14 | PC.NURSE ---
Nursing report updated with nurse at [facility]. ETA from ambulance service is 30 minutes.
--- NOTE | 2020-04-15 23:50 | PC.NURSE ---
Dischaged to [facility] ambulance service via stretcher with telemetry in place.
[2020-04-16 22:15] LABS: Mitochondrial (M2) Ab (IgG) <=20.0 U (<=20.0)
[2020-04-17 11:38] LABS: Ceruloplasmin 43 mg/dL (18-36)
[2020-04-18 16:39] LABS: Alpha Fetoprotein Tumor Marker 2.5 ng/mL (<6.1)
== END 2020-04-15 20:50 | disposition short-term general hospital (02) | DRG 187 ==
LOC: ANHED 13:52 → ANH3MEDSUR 14:07
PROVIDERS: Internal Medicine; Internal Medicine Gastroenterology; Admitting Provider Internal Medicine; Emergency Provider Emergency Medicine; PCP Family Medicine; Visit Provider Hospitalist
DX: J90 Pleural effusion, not elsewhere classified (principal); N17.9 Acute kidney failure, unspecified; I31.1 Chronic constrictive pericarditis; I50.32 Chronic diastolic (congestive) heart failure; I11.0 Hypertensive heart disease with heart failure; I16.0 Hypertensive urgency; K70.31 Alcoholic cirrhosis of liver with ascites; K72.90 Hepatic failure, unspecified without coma; E11.65 Type 2 diabetes mellitus with hyperglycemia; K21.9 Gastro-esophageal reflux disease without esophagitis; E78.5 Hyperlipidemia, unspecified; G47.33 Obstructive sleep apnea (adult) (pediatric); I27.20 Pulmonary hypertension, unspecified
CPT/HCPCS: 36415; 71046; 74176; 80048; 80076; 80307; 82103; 82105; 82140; 82390; 82728; 83520; 85025; 85027; 85610; 85730; 86038; 86235; 93005; 94660; 99285; A9270; G0378; J1940

== ENCOUNTER 2020-09-23 13:30 | Outpatient (RCR) | payer MEDICARE, OTHER, SELFPAY ==
[2020-06-26 14:12] VITALS: PULSE 74; RESP 16; TEMP 36.8; O2SAT 98
[2020-06-26 15:07] VITALS: PULSE 74
[2020-07-01 14:41] LABS: Glucose Point of Care 239 (65-105)
[2020-07-01 14:41] LABS: Glucose Point of Care 227 (65-105)
[2020-07-02 15:08] LABS: Glucose Point of Care 250 (65-105)
[2020-08-17 14:54] LABS: Glucose Point of Care 209 (65-105)
[2020-09-16 14:55] LABS: Glucose Point of Care 177 (65-105)
[2020-09-16 14:55] LABS: Glucose Point of Care 188 (65-105)
== END 2020-09-23 18:10 | disposition home or self-care (01) ==
LOC: ANHCPREHAB 13:30
PROVIDERS: Visit Provider Internal Medicine Cardiovascular Disease
DX: I20.8 Other forms of angina pectoris (principal)
CPT/HCPCS: 93798

== ENCOUNTER 2021-04-19 13:00 | Outpatient (RCR) | payer MEDICARE, OTHER, SELFPAY ==
--- NOTE | 2021-02-26 12:42 | PTOPEVAL ---
PHYSICAL THERAPY EVALUATION Thank you for referring Edmundo Islas to [facility].? Edmundo was evaluated for the dx of gait instability. The patient is scheduled to be seen for therapy?2 x/week for 4 weeks. Please review, sign, date and return this plan of care MANE. I agree with and certify that the following plan of care is medically necessary. Referring Physician Date Referring Provider: Marcell Munroe, *PT Outpatient Evaluation Start: 02/26/21 10:06 Freq: Status: Active Protocol: Document 02/26/21 10:06 [facility] (Rec: 02/26/21 11:12 [facility] [id number]) Therapy Assessment Status Assessment Status Assessment Status Evaluation Evaluation Information Problem Diagnosis gait instability Additional Evaluation Detail The patient had open heart surgery in April of 2020 and was having trouble with walking prior to surgery. Pt thought it would get better after but it didn't. Pt reports feeling very unsteady when he first stands and lessens as he walks but doesn't go away completely. 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 The patient cooks, does dishes and is returning to doing his yardwork. The patient's goal is to be more steady when getting up. the patient has fallen once, occurred before the surgery and occurred because he passed out. Pain Assessment Timing of Pain Assessment Timing of Pain Assessment Assessment Self Report Self Report Pain Level 0 Pain Score Pain Score 0: Self Report Upper Extremity Range of Motion General Upper Extremity Range of Motion Reason Not Measured WFL/Left,WFL/Right Lower Extremity Range of Motion General Lower Extremity Range of Motion Reason Not Measured WNL/Left,WNL/Right Lower Extremity Muscle Strength Testing General Lower Extremity Strength Reason Not Measured WNL/Left,WNL/Right Upper Extremity Muscle Strength Testing General Upper Extremity Strength Reason Not Measured WFL/Left,WFL/Right Balance Assessment [place] Balance Assessment Sitting to Standing Independent w/out Hands Unsupported Stance Ability Safely- 2 minutes Sitting Unsupported, Feet on Floor Safely- 2 minutes Standing to Sitting Safely, Minimal Hand Use Transfer Ability Safely, Minimal Hand Use Unsupported Stance- Eyes Close
--- NOTE | 2021-03-03 15:06 | PCPTNOTE ---
Patient did not show to treatment this date. Called and spoke with patient who stated he forgot today's appointment and agreed to try and reschedule.
--- NOTE | 2021-03-03 15:18 | PCPTNOTE ---
Patient called to cancel this date stating he fell and was on the way to ER.
--- NOTE | 2021-03-05 09:51 | PCPTNOTE ---
Patient showed up 27 mins late for scheduled appointment this date, was unable to be seen at this time.
--- NOTE | 2021-03-26 09:40 | PCPTNOTE ---
Patient called at 9:30am & cancelled scheduled 9:15am appointment this date due to Pt running late.
--- NOTE | 2021-03-31 13:32 | PTOPEVAL ---
PHYSICAL THERAPY RE-EVALUATION Thank you for referring Edmundo Islas to [facility] Edmundo is progressing with his therapy for the dx of gait instability. Goals are partially met and will benefit from continued therapy. The patient is scheduled to be seen for therapy? 2 x/week for 2 weeks. Please review, sign, date and return this plan of care MANE. I agree with and certify that the following plan of care is medically necessary. Referring Physician Date Referring Provider: Marcell Munroe, *PT Outpatient Evaluation Start: 02/26/21 10:06 Freq: Status: Active Protocol: Document 03/31/21 09:51 MLV (Rec: 03/31/21 10:28 MLV [id number]) Therapy Assessment Status Assessment Status Re-evaluation Evaluation Information Problem Diagnosis gait instability Cause no injury Additional Evaluation Detail The patient feels the therapy is helping. Patient reports it is more steady when getting up from a chair and his walking is better. The patient also feels he is getting stronger. Pain Assessment Timing of Pain Assessment Timing of Pain Assessment Assessment Self Report Self Report Pain Level 0 Pain Score Pain Score 0: Self Report Lower Extremity Muscle Strength Testing General Lower Extremity Strength Reason Not Measured WNL/Left,WNL/Right Balance Assessment Trevizo Balance Assessment Sitting to Standing Independent w/out Hands Unsupported Stance Ability Safely- 2 minutes Sitting Unsupported, Feet on Floor Safely- 2 minutes Standing to Sitting Safely, Minimal Hand Use Transfer Ability Safely, Minimal Hand Use Unsupported Stance- Eyes Closed Safely, 10 seconds Unsupported Stance- Feet Together Independent, 1 minute Reaching Forward while Standing Confidently, 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 Pt no longer has difficulty with toe walking, heel walking and tandem walking. Coordination deficit
--- NOTE | 2021-04-19 14:11 | PTOPEVAL ---
PHYSICAL THERAPY DISCHARGE Thank you for referring Edmundo Islas to [facility].? The patient has completed 10 visits for the dx of gait instability. The patient has progressed well, and met all of his goals. DC PT. Please review, sign, date and return this plan of care MANE. I agree with and certify that the following plan of care is medically necessary. Referring Physician Date Referring Provider: Marcell Munroe, MD *PT Outpatient Discharge Start: 02/26/21 10:06 Freq: Status: Active Protocol: Document 04/19/21 13:08 MLV (Rec: 04/19/21 13:27 MLV [id number]) Therapy Assessment Status Assessment Status Assessment Status Discharge Evaluation Information Problem Diagnosis gait instability Cause no injury Additional Evaluation Detail Patient reports feeling 95% or more better since the evaluation. His reports being able to see an improvement in the way he walks and his overall safety. The patient feels more stable on his feet and is able to do some heavier yard and housework safely. The patient agrees he can continue his exercises on his own at this time. Pain Assessment Timing of Pain Assessment Timing of Pain Assessment Assessment Self Report Self Report Pain Level 0 Pain Score Pain Score 0: Self Report Gait Assessment Gait Pattern Assessment Gait Pattern No Deviations/Normal Other Gait Observations Pt ambulates w/o a device I with continued improvement of speed and coordination approx 80-90% with stepping. Pt no longer has difficulty with toe walking, heel walking and tandem walking. Coordination deficit improved and able to be steady with 3lbs malini. ankles for braiding steps, sidestepping and 2 step pattern activities. Vestibular Evaluation Vestibular Testing Smooth Pursuits Normal Saccades WNL Sitting Head Thrust WNL Head Shake without Fixation WNL Vestibular Testing Comments 75% improved for focus on objects with head movements in standing and with walking
== END 2021-04-20 08:32 | disposition home or self-care (01) ==
LOC: ANHPT 13:00
PROVIDERS: Referring Provider Family Medicine; Visit Provider Family Medicine
DX: R26.81 Unsteadiness on feet (principal)
CPT/HCPCS: 97110; 97116; 97162; 97530

== ENCOUNTER 2024-05-06 19:06 | Emergency (ER) | payer MEDICARE, SELFPAY ==
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
[2024-05-06 19:14] VITALS: BP 171/78; PULSE 73; RESP 18; TEMP 36.2; O2SAT 100
[2024-05-06] MEDS: methocarbamoL 500 MG TABLET PO (22:50)
[2024-05-06] MEDS: LIDOCAINE 5% PATCH 1 PATCH TRANSDERM (22:50)
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
== END 2024-05-07 01:27 | disposition home or self-care (01) ==
PROVIDERS: Emergency Provider Physician Assistant
DX: S16.1XXA Strain of muscle, fascia and tendon at neck level, initial encounter (principal); M54.16 Radiculopathy, lumbar region; I27.20 Pulmonary hypertension, unspecified; I11.0 Hypertensive heart disease with heart failure; I50.30 Unspecified diastolic (congestive) heart failure; E11.9 Type 2 diabetes mellitus without complications; E78.5 Hyperlipidemia, unspecified; K74.60 Unspecified cirrhosis of liver; K21.9 Gastro-esophageal reflux disease without esophagitis; G47.33 Obstructive sleep apnea (adult) (pediatric); Z79.84 Long term (current) use of oral hypoglycemic drugs; Z79.82 Long term (current) use of aspirin; M89.9 Disorder of bone, unspecified; V43.52XA Car driver injured in collision with other type car in traffic accident, initial encounter
CPT/HCPCS: 70450; 72125; 72131; 99284; A9270

== ENCOUNTER 2024-08-23 14:00 | Outpatient (RCR) | payer MEDICARE, SELFPAY ==
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
--- NOTE | 2024-07-12 14:43 | PCPTNOTE ---
No call no show, reason unknown. AKGissel
--- NOTE | 2024-07-17 13:59 | PCPTNOTE ---
Called and cancelled, Colonoscopy today. AKGissel
--- NOTE | 2024-07-19 16:01 | PCPTNOTE ---
No call No show, reason unknown. AKGissel
--- NOTE | 2024-07-26 14:22 | PCPTNOTE ---
No show however pt mentioned possible on this date. AKS
--- NOTE | 2024-08-07 15:48 | OPREHPOC ---
Outpatient Therapy Plan of Care This is a Multidisciplinary Plan of Care that may contain components documented by all disciplines (PT, OT, and ST.) PT Problem 1 PT Problem #1 Knowledge Deficit PT Goal 1 Goal / Goal Update Pt will demo neck and lumbar stabilization HEPs indep Target Visit 12 PT Goal 2 Goal / Goal Update 08-07-24 progress goal met NEW GOAL: * indep with HEP for back Target Visit 15 PT Problem 2 PT Problem #2 Pain PT Goal 1 Goal / Goal Update Pt will report 1-2/10 pain at worst when performing standing and ambulation on various surfaces and stairs Target Visit 12 Progress Not Met PT Goal 2 Goal / Goal Update 08-07-24 progress goal not met NEW GOALS: 1* back pain rating at 4/10 at worst 2* self assessment Oswestry rating of 40% limitation in activity level 3* pt report walking tolerance of 20 minutes 4* pt report with sleeping, awaken 1x/night due to pain Target Visit 15 PT Problem 3 PT Problem #3 Impaired Balance PT Goal 1 Goal / Goal Update Pt will demo Tinetti Assessment score of > 21/28 to reduce risk for falls Target Visit 12 Progress Met PT Goal 2 Goal / Goal Update 08-07-24 progress goal met discontinue intervention PT Problem 4 PT Problem #4 Impaired Range of Motion PT Goal 1 Goal / Goal Update Pt will demo WNL cervical and lumbar motions to improve safe and indep functional mobility. Target Visit 12 Progress Partially Met PT Goal 2 Goal / Goal Update 08-07-24 progress goals partially met for lumbar NEW GOALS
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
--- NOTE | 2024-08-16 14:22 | PCPTNOTE ---
Patient called and rescheduled appointment. Unable to make this visit.
--- NOTE | 2024-08-26 15:21 | PCPTNOTE ---
Patient was a No Show/No Call for today's progress note.
--- NOTE | 2024-09-03 14:59 | PCPTNOTE ---
This treatment is being continued on visit number [id number] Please see documentation on both accounts to view progress. Completed interventions, outcomes, and problems have been marked as Inactive to facilitate the copying of the Care plan routine for recurring accounts.
== END 2024-08-29 23:59 | disposition home or self-care (01) ==
LOC: ANHPT 14:00
PROVIDERS: Visit Provider Family Medicine
DX: M54.50 Low back pain, unspecified (principal); M54.2 Cervicalgia
CPT/HCPCS: 97014; 97110; 97140; 97161; 97530; G0283

== ENCOUNTER 2024-09-04 07:37 | Outpatient (RCR) | payer MEDICARE, SELFPAY ==
--- NOTE | 2024-09-03 15:00 | PCPTNOTE ---
This treatment is being continued from visit number [id number] . Please see documentation on both accounts to view progress. Completed interventions, outcomes, and problems have been marked as Inactive to facilitate the copying of the Care plan routine for recurring accounts.
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
--- NOTE | 2024-09-04 10:11 | PCPTNOTE ---
pt was 20 minutes late for today's reeval appt.
== END 2024-11-25 11:30 | disposition home or self-care (01) ==
LOC: ANHPT 07:37
PROVIDERS: Visit Provider Family Medicine
DX: M54.50 Low back pain, unspecified (principal); M54.2 Cervicalgia
CPT/HCPCS: 97110; 97530

== ENCOUNTER 2024-10-05 14:16 | Emergency (ER) | payer MEDICARE, SELFPAY ==
--- NOTE | ~2024-10-05 | XR_ITS ---
XR lumbar spine 2-3V DATE: 10/05/2024 14:58 INDICATION: Low back pain TECHNIQUE: AP, lateral, coned lateral lumbosacral views COMPARISON: 05/06/2024 CT lumbar spine FINDINGS: L1-2 and L2-3 interspaces are well preserved. There is moderate loss of disc space height and minimal grade 1 anterolisthesis at L3-4. There is mild loss of interspace height at L4-5. L5-S1 disc space is well preserved. No fracture or bone destruction. Included lower thoracic and lumbar pedicles are intact. Normal alignment at the sacroiliac joints. IMPRESSION: Minimal grade 1 anterolisthesis at L3-4 Moderate loss of disc space height at L3-4, mild loss of disc space height at L4-5 Reviewed, dictated and finalized at location A. TRANSITION IMPRESSION: Minimal grade 1 anterolisthesis at L3-4 Moderate loss of disc space height at L3-4, mild loss of disc space height at L 4-5
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
[2024-10-05 14:31] VITALS: BP 155/86; PULSE 78; RESP 16; TEMP 37.4; O2SAT 100
[2024-10-05 15:10] LABS: EDUAAPPEAR Clear; EDUABILI 1+ (Negative); EDUABLOOD Negative (Negative); EDUACOLOR1 Amber; EDUAGLUCOSE Negative (Negative); EDUAKETONE Trace (Negative); EDUALEUKO Negative (Negative); EDUANITRATE Negative (Negative); EDUAPH 5.5; EDUAPROTEIN 3+ (Negative)
== END 2024-10-05 15:20 | disposition home or self-care (01) ==
PROVIDERS: Emergency Provider Nurse Practitioner Family
DX: M54.42 Lumbago with sciatica, left side (principal); K74.60 Unspecified cirrhosis of liver; I11.0 Hypertensive heart disease with heart failure; I50.30 Unspecified diastolic (congestive) heart failure; E11.9 Type 2 diabetes mellitus without complications; Z79.84 Long term (current) use of oral hypoglycemic drugs; E78.5 Hyperlipidemia, unspecified; I27.20 Pulmonary hypertension, unspecified; G47.33 Obstructive sleep apnea (adult) (pediatric); Z91.198 Patient's noncompliance with other medical treatment and regimen for other reason; Z79.82 Long term (current) use of aspirin
CPT/HCPCS: 72100; 81003; 99213; G0463

== ENCOUNTER 2025-03-20 05:09 | Emergency (ER) | payer MEDICARE, SELFPAY ==
--- NOTE | ~2025-03-20 | CT_ITS ---
CT of the Abdomen and Pelvis: Indication: Abdominal pain Technique: 2.5 mm axial scans were obtained through the abdomen and pelvis following intravenous adm inistration of 100 cc of Omnipaque 350. Dose reduction technique was used on this scan by utilizing a utomated exposure control and iterative reconstruction technique. The dose-length product (DLP) was 7 53.92 mGy-cm. Findings: Scans through the lung bases are unremarkable. Diffuse nodular contour of the liver is compatible cirrhosis. Gallbladder distended without definite wall thickening or evident gallstone. The spleen, pancreas, adrenals and kidneys are within normal li mits. There are atherosclerotic calcifications of the aorta. No lymphadenopathy. No bowel obstruction or bowel wall thickening. There is no evidence to suggest acute appendicitis. Images through the pelvis were performed. Urinary bladder unremarkable. No pelvic mass seen. Large ri ght hydrocele noted. No ascites. Impression: Large right hydrocele. Cirrhotic morphology of the liver. Reviewed, dictated and finalized at [facility]. Impression: Large right hydrocele. Cirrhotic morphology of the liver.
--- OUTSIDE RECORDS SUMMARY | 2025-03-20 05:11 | XMS_ITS | Encounter Summary ---
Author Organization [facility] Facility Care Team Providers Care Telephone Order Clerk Room Service Name Role Phone Marcell Munroe MD Primary Care Provider [phone] Marcell Munroe MD Primary Care Provider [phone] Rj Chopra MD Unavailable Miscellaneous, Not In File Unavailable Unava ilable Nila Lopez RN Unavailable [phone] ChavezEmmanuel awad MD Unavailable [phone] Encounter Details Date Type Department Care Team (Latest Contact Info) Description 04/18/2017 Orders Only [facility] CLINCONV ProviderMillicent MD [address] [place], [place] [id number] Social History Tobacco Use Types Packs/Day Years Used Date Smoking Tobacco: Never Assessed Sex and Gender Information Value Date Recorded Sex Assigned at Not on file 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 Historical Provider Final Res ult documented in this encounter Visit Diagnoses Not on filedocumented in this encounter Additional Health Concerns Infection Onset Date Last Indicated Resolved Time COVID: Suspected 03/20/2020 03/20/2020 03/23/2020 4:01 AM CDT Respiratory Infection (KASHMIR), contact + droplet Comment:Automatically added due to negative COVID-19 result. 03/23/2020 03/23/2020 04/06/2020 3:0 5 AM CDT documented as of this encounter Care Teams Telephone Order Clerk Room Service Relationship Specialty Start Date End Date Marcell Munroe MD PCP - General 01/18/19 Marcell Munroe MD PCP - General 12/18/18 01/17/19 Rj Chopra MD Surgeon Cardiothoracic Surgery 05/06/20 Miscellaneous, Not In File 05/06/20 Nila Lopez, TIBURCIO [address] [place] [address] [address] [place], [place] [id number] Organizational Psychologist 05/07/20 06/14/20 Emmanuel Alvarenga MD [address] [place] [address] [address] [place] [address] Consulting Physician Plastic Surgery 11/02/21 documented as of this encounter
--- OUTSIDE RECORDS SUMMARY | 2025-03-20 05:11 | XMS_ITS | Encounter Summary ---
Author Organization [facility] Facility Care Team Providers Care Lamp Inspector Name Role Phone Marcell Munroe MD Primary Care Provider [phone] Marcell Munroe MD Primary Care Provider [phone] Rj Chopra MD Unavailable Miscellaneous, Not In File Unavailable Unava ilable Nila Lopez RN Unavailable [phone] ChavezEmmanuel awad MD Unavailable [phone] Encounter Details Date Type Department Care Team (Latest Contact Info) Description 12/13/2018 Orders Only [facility] CLINCONV ProviderMillicent MD [address] [place], [place] [id number] Social History Tobacco Use Types Packs/Day Years Used Date Smoking Tobacco: Never Assessed Sex and Gender Information Value Date Recorded Sex Assigned at Not on file 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 Historical Provider [facility] MARKO RASMUSSEN Final Result documented in this encounter Visit Diagnoses Not on filedocumented in this encounter Additional Health Concerns Infection Onset Date Last Indicated Resolved Time COVID: Suspected 03/20/2020 03/20/2020 03/23/2020 4:01 AM CDT Respiratory Infection (KASHMIR), contact + droplet Comment:Automatically added due to negative COVID-19 result. 03/23/2020 03/23/2020 04/06/2020 3:0 5 AM CDT documented as of this encounter Care Teams Lamp Inspector Relationship Specialty Start Date End Date Marcell Munroe MD PCP - General 01/18/19 Marcell Munroe MD PCP - General 12/18/18 01/17/19 Rj Chopra MD Surgeon Cardiothoracic Surgery 05/06/20 Miscellaneous, Not In File 05/06/20 Nila Lopez RN [address] [place] [address] [address] [place] [address] Qa Tech 05/07/20 06/14/20 Emmanuel Alvarenga MD [address] [place] [address] [address] [place] [address] Consulting Physician Plastic Surgery 11/02/21 documented as of this encounter
--- OUTSIDE RECORDS SUMMARY | 2025-03-20 05:11 | XMS_ITS | Encounter Summary ---
Author Organization [facility] Facility Care Team Providers Care Copyright Manager Name Role Phone Marcell Munroe MD Primary Care Provider [phone] Marcell Munroe MD Primary Care Provider [phone] Rj Chopra MD Unavailable Miscellaneous, Not In File Unavailable Unava ilable Nila Lopez RN Unavailable [phone] ChavezEmmanuel awad MD Unavailable [phone] Encounter Details Date Type Department Care Team (Latest Contact Info) Description 11/28/2018 Orders Only [facility] CLINCONV ProviderMillicent MD [address] [place], [place] [id number] Social History Tobacco Use Types Packs/Day Years Used Date Smoking Tobacco: Never Assessed Sex and Gender Information Value Date Recorded Sex Assigned at Not on file 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 Historical Provider [...] documented as of this encounter Care Teams Copyright Manager Relationship Specialty Start Date End Date Marcell Munroe MD PCP - General 01/18/19 Marcell Munroe MD PCP - General 12/18/18 01/17/19 Rj Chopra MD Surgeon Cardiothoracic Surgery 05/06/20 Miscellaneous, Not In File 05/06/20 Nila Lopez RN [address] [place] [address] [address] [place] [address] Enterprise Resource Analyst 05/07/20 06/14/20 Emmanuel Alvarenga MD [address] [place] [address] [address] [place] [address] Consulting Physician Plastic Surgery 11/02/21 documented as of this encounter
--- OUTSIDE RECORDS SUMMARY | 2025-03-20 05:11 | XMS_ITS | Encounter Summary ---
Author Organization [facility] Address [address] [place] [address] Phone Care Team Providers Care Press Box Custodian Name Role Phone Marcell Munroe MD Primary Care Provider [phone] Rj Chopra MD Unavailable Miscellaneous, Not In File Unavailable Unava ilable Emmanuel Alvarenga MD Unavailable [phone] Encounter Details Date Type Department Care Team (Late st Contact Info) Description 01/21/2025 Results Follow-Up [facility] Cardiology [facility] Medical Office Building [address] [place] [address] Herlinda Mora, TIBURCIO Social History Tobacco Use Types Packs/Day Years Used Date Smoking Tobacco: Never Passive Smoke Exposure: Never Smokeless Tobacco: Never Alcohol Use Standard Drinks/Week Comments Yes 0 (1 standard drink = 0.6 oz pur e alcohol) rarely AUDIT-C Answer Date Recorded Q1: How often do you have a drink containing alcohol? Never 10/08/2024 Q2: How many drinks containi ng alcohol do you have on a typical day when you are drinking? Patient does not drink Q3: How often do you have si x or more drinks on one occasion? Never 10/08/2024 PHQ-2 Answer Date Recorded PHQ-2 Total Score (If total score is 3 or more points, staff should administer the PHQ-9) 0 10/08/2024 Hunger Vital Sign Answer Date Recorded Within the past 12 months, y ou worried that your food would run out before you got the money to buy more. Never true 05/29/20 20 Within the past 12 months, t he food you bought just didn't last and you didn't have money to get more. Never true 05/29/2020 PRAPARE - Transportation Answer Date Re corded In the past 12 months, has l ack of transportation kept you from medical appointments or from getting medications? No 05/13 In the past 12 months, has l ack of transportation kept you from meetings, work, or from getting things needed for daily living? 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
--- OUTSIDE RECORDS SUMMARY | 2025-03-20 05:11 | XMS_ITS | Clinical Summary ---
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 PM CDT): Continue metoprolol at same dosage. Well controlled. Assessment & Plan (05/10/2024 2:27 PM CDT): Continue metoprolol at same dosage. Well controlled. Assessment & Plan (03/27/2024 1:00 PM CDT): Continue metoprololat same dosage. Well controlled. Assessment & Plan (12/06/2023 10:57 AM MEASUREMENT SUPERVISOR): Continue atenolol at same dosage. Well controlled. Assessment & Plan (04/12/2023 9:11 AM CDT): Continue metoprolol at same dosage. Well controlled. Assessment & Plan (10/11/2022 3:41 PM MEASUREMENT SUPERVISOR): Continue metoprolol at same dosage. Well controlled. Assessment & Plan (04/10/2022 2:53 PM CDT): Continue metoprolol at same dosage. Well controlled. Assessment & Plan (10/12/2021 4:45 PM MEASUREMENT SUPERVISOR): Continue metoprolol at same dosage. Well controlled. Assessment & Plan (05/04/2021 2:58 PM CDT): Continue metoprolol at same dosage. Well controlled. Assessment & Plan (02/02/2021 4:15 PM CDT): Continue metoprolol at same dosage. Well controlled. Controlled type 2 diabetes bobby shea without complication, without long-term current use of insulin 06/12/2009 Assessment & Plan (02/06/2025 1:28 PM CDT): Worsening diabetes as reflected by higher A1c.. Continue pioglitazone/metformin/at same dosage. Recommend increase glipizide to 10 mg b.I.d. but declined. Also declined adding 4th medicine. Patient was encouraged to decrease the sugar and starch in diet. This means avoiding juices and sugar sweetened drinks. Patient should limit REFINED carbohydrates such as bread, rice, cereal pasta, and mashed potatoes. Regular exercise for more than 30 minutes t most days was encouraged to further improve blood sugar. The main fruit to avoid are grapes , pineapple, and bananas. Encouraged to maintain vegetables. Helicobacter pylori gastritis 06/12/2009 Resolved Problems Problem Noted Date Diagnosed Date Resolved Date Hyperglycemia 04/28/2020 04/29/2020 Assessment & Plan (04/28/2020 10:34 AM CDT): Insulin drip started overnight for BS>200. History of T2DM on oral agents at home. Epinephrine likely contributing to hyperglycemia. -DC Insulin drip -Start HDSSI Q 4 -Clear liquids, ADAT concern for possible ileus -Carb control diet when taking POs -Blood sugar goal <180 Acute post-operative pain 04/27/2020 Assessment & Plan (05/01/2020 2:19 PM CDT): Improvement in overall pain - DC Dilaudid in setting of likely ileus - KUB done today with improvement in ileus, no nausea overnight, improvement in distension - Continue Oxycodone 5mg Q 4 PRN - Avoid Tylenol with cirrhosis and liver failure - add lidocaine patch for discomfort Assessment & Plan (04/28/2020 10:28 AM CDT): Overnight patient with worsening pain and received 4 doses of Dilaudid 0.2mg and 2 doses of Oxycodone 5mg. This AM patient endorses abdominal pain. Abdomen distended and firm. No nausea. - DC Dilaudid in setting of likely ileus - KUB now - Continue Oxycodone 5mg Q 4 PRN - Avoid Tylenol with cirrhosis and liver failure Assessment & Plan (04/27/2020 3:08 PM CDT): Expected postop pain s/p sternotomy. Arrived from OR on Precedex at 1mcg/kg/min. Received 800 mcg Fentanyl during the case. - Fentanyl 50mcg Q 30min PRN - Change to Oxycodone once extubated - Avoid Tylenol with cirrhosis and liver failure Cardiogenic shock 04/27/2020 04/30/2020 Assessment & Plan (04/30/2020 12:44 PM CDT): POD # 3from pericardectomy. - Wean Epi Q 12 hour for Scvo2>60--slow wean post pericardectomy for RV support - MAP > 70 for RV support/AISHA/CAD - resolved, EPI off 04/30 - consider TTE prior to discharge Assessment & Plan (04/28/2020 10:27 AM CDT): Secondary to pericarditis now s/p pericardectomy. Post procedure MEG performed on Epi 0.05 showed normal biventricular systolic function, septal bounce appears less pronounced. CI 2.8, CVP 12-15 overnight. Extubated yesterday and on 4L NC. Svo2 93.6 this AM on Epi 0.05. Briefly on pressors last night but now off. - Wean Epi Q 12 hour for Scvo2>65--slow wean post pericardectomy for RV support - Lasix 40mg IV x 1 - FBG neg 500ml-1L - MAP > 70 for RV support/AISHA/CAD Assessment & Plan (04/27/2020 5:38 PM CDT): Secondary to pericarditis now s/p pericardectomy. Post procedure MEG performed on Epi 0.05 showed normal biventricular systolic function, septal bounce appears less pronounced. CI 2.7, CVP 12 on arrival. - Keep Epi @ 0.05 - No Epi wean at this time, anticipate slow epi wean post pericardectomy for RV support - NE as needed for MAP > 70 for RV support Bilateral leg edema 03/23/2020 04/28/20 20 Assessment & Plan (03/30/2020 2:56 PM CDT): Improved/appears to be related to how long he is on his feet. Recommend trial compression stockings. Chronic kidney disease, stage 2 (mild) 07/29/2019 09/08/2020 Assessment & Plan (05/17/2020 3:04 PM CDT): Avoid NSAIDs or PPIs as much as possible. Renal function stable Assessment & Plan (10/30/2019 3:39 PM MEASUREMENT SUPERVISOR): Avoid NSAIDs or PPIs as much as possible. Renal function stable Rash 04/02/2019 07/29/2019 Assessment & Plan (04/02/2019 3:40 PM CDT): I think this is most likely fungal lot could be eczema. He has no history of eczema or chronic skin problems. Rash is only been present for 3 weeks. Stage 3a chronic kidney disease 03/29/2019 01/13/2021 Assessment & Plan (04/02/2019 9:29 AM CDT): Avoid NSAIDs or PPIs as much as possible Upper abdominal pain 03/29/2019 019 Syncope 12/10/2018 07/29/2019 Chronic kidney disease, stage II (mild) 11/28/2018 03/29/2019 Hypertensive kidney disease 10/17/2017 01/13/2021 Assessment & Plan (05/17/2020 3:03 PM CDT): Continue medication at same dosage. Well controlled. n Assessment & Plan (10/30/2019 3:39 PM MEASUREMENT SUPERVISOR): Continue medication at same dosage. Well controlled. Assessment & Plan (04/02/2019 9:29 AM CDT): Continue medication at same dosage Diabetes mellitus out of control 12/05/2016 07/29/2019 Assessment & Plan (04/02/2019 3:40 PM CDT): We will check A1c today and if it is still over 7 consider increasing glipizide up to 10 mg GERD (gastroesophageal reflux disease) 06/21/2016 01/13/2021 Assessment & Plan (04/02/2019 9:29 AM CDT): Patient unable to taper PPI. Patient is advised to PPIs can cause several medical problems. This includes making it hard to absorb minerals especially calcium which may cause bone loss. PPIs have also been associated with kidney problems and Alzheimer's disease. Use sparingly. 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, unspecified vessel or lesion type; Acute bilateral low back pain without sciatica 01/21/2025 Results Follow-Up [facility] Card[facility] [address] [place] [address] Medical Office Building [address] [place] [address] Herlinda Mora RN 01/16/2025 Telephone [facility] [address] [place] [phone] Marcell Munroe MD Forms Request from Last 3 Months Immunizations Immunization Administration Dates Next Due Influenza, Quad, Adjuvantate d, Intramuscular 07/16/2021 Influenza, Trivalent, High D ose, Split, Preservative Free, Intramuscular 10/30/2019,11/28/2018 Influenza, Unspecified 10/08/2024(Deferr ed: Patient decision),10/13/2022(Deferred: Patient decision),10/12/2022(Deferred: Patient decision) Pfizer SARS-CoV-2 Monovalent Vaccination (12+ Yrs) VELASQUEZ-READY TO USE 12/04/2021 Pfizer SARS-CoV-2 Monovalent Vaccination (12+ Yrs) PURPLE 02/21/2021,01/28/2021 Pneumococcal Conjugate PCV 13 04/19/2017 Pneumococcal Conjugate Pcv20 04/13/2023 Sars-cov-2 Covid-19 Mrna, Bi valent, Original/omicron Ba.1 09/20/2023 TD Preservative Free 11/22/2016 Tdap 11/13/2016 ZOSTER Recombinant 01/21/2025,05/17/2022 Surgical History Surgery Date Site/Laterality Comments US ABDOMEN COMPLETE W LIVER DOPPLER (C) 04/16/2020 Right BIOPSY TRANSCATHETER 04/22/2020 N/A PERICARDIECTOMY 04/13/2020 - 05/12/2020 PLASTIC SURGERY 11/13/2020 - 11/12/2021 scar on chest CATARACT EXTRACTION 02/12/2024 - 03/12/2024 Right Quantum VIsion Medical History Medical History Date Comments Microalbuminuria Allergic rhinitis GERD (gastroesophageal reflux disease) Diabetes mellitus with nephropathy (HCC) Lipidemia Abnormality of urethral meatus Hypertensive kidney disease CKD (chronic kidney disease), stage II Syncope Shortness of breath Acute post-operative pain 04/27/2020 Pericarditis Sleep apnea Hypertension Family History Medical History Relation Name Comments Stroke Brother Stroke Cousin No Known Problems Father No Known Problems Mother Diabetes Other Hypertension Other Relation Name Status Comments Brother Cousin Daughter Alive Father Mother Other Social History Tobacco Use Types Packs/Day Years Used Date Smoking Tobacco: Never Passive Smoke Exposure: Never Smokeless Tobacco: Never Tobacco Cessation:Counseling Given: Not Answered Alcohol Use Standard Drinks/Week Comments Yes 0 (1 standard drink = 0.6 oz pur e alcohol) rarely AUDIT-C Answer Date Recorded Q1: How often do you have a drink containing alcohol? Never 02/06/2025 Q2: How many drinks containi ng alcohol do you have on a typical day when you are drinking? Patient does not drink Q3: How often do you have si x or more drinks on one occasion? Never 02/06/2025 PHQ-2 Answer Date Recorded PHQ-2 Total Score (If total score is 3 or more points, staff should administer the PHQ-9) 0 02/06/2025 Hunger Vital Sign Answer Date Recorded Within [...] on file Legal Sex Male 8:16 AM MEASUREMENT SUPERVISOR Gender Identity Not on file Sexual Orientation Not on file Obstetrics History Last Filed Vital Signs Vital Sign Reading Time Taken Comments Blood Pressure 124/80 02/06/2025 12:56 PM CDT Pulse 70 02/06/2025 12:56 PM CDT Temperature 36.4 C (97.6 F) 02/06/2025 12:56 PM CDT Respiratory Rate 18 02/06/2025 12:56 PM CDT Oxygen Saturation 100% 02/06/2025 12:56 PM CDT Inhaled Oxygen Concentration - - Weight 94.5 kg (208 lb 4.8 oz) 02/06/2025 12:56 PM CDT Height 175.3 cm (5' 9.02 ) 02/06/2025 12:56 PM C DT Body Mass Index 30.75 02/06/2025 12:56 PM CDT Plan of Treatment Health Maintenance Due Date Last Done Comments Hepatitis B Screening 01/16/1968 Albumin Creatinine Ratio, Urine 10/09/2019 8, 07/12/2016 Covid-19 Vaccine (2023- 5 season) 2024 09/20/2023, 09/20/2023, 12/04/2021, Additional history exists Dilated Eye Exam 01/25/2025 01/25/2023 Well Visit 65+ 07/05/2025 07/05/2024, 06/0 11/2022, 10/13/2021, Additional history exists Influenza Vaccine (Season Ended) 2025 07/16/2021, 10/30/2019, 11/28/2018 Hemoglobin A1C 08/09/2025 02/06/2025, 09/14, 07/05/2024, Additional history exists Lipid Panel 12/19/2025 12/19/2024, 08/14, 04/13/2022, Additional history exists eGFR 12/19/2025 12/19/2024, 08/14, 04/13/2022, Additional history exists Depression Screening 02/06/2026 02/06/2025, 10/08/2024, 07/05/2024, Additional history exists Fall Risk Assessment 02/06/2026 02/06/2025, 07/05/2024, 05/13/2024, Additional history exists Foot Exam 02/06/2026 02/06/2025, 09/14, 07/05/2024, Additional history exists DTaP/Tdap/Td Vaccine (3 - Td or Tdap) 11/22/2026 11/22/2016, 11/13/2016 Colon Cancer Screening-Colonoscopy 07/17/2029 07/17/2024, 09/07/2017 Hepatitis C Screening Completed 04/16/2020, 020 Prostate Cancer Screening-PSA Discontinued 06/28/2021 Pneumococcal vaccine 65+ Completed 04/13/2023, 05/2017 Colon Cancer Screening-CT Colonography Discontinued 07/17/2024, 09/07/2017 Colon Cancer Screening-DNA Stool Discontinued 07/17/20 24, 09/07/2017 Colon Cancer Screening-FIT Discontinued 07/17/2024, Colon Cancer Screening-Sigmoidoscopy Discontinued 07/17/2024, 09/07/2017 Zoster Vaccine Completed 01/21/2025, 05/17/2022 Medical Devices Implanted Type Area Benefits Consultant Device Identifier Shelf Expiration Date Model / Serial / Lot [employer] [id number] Seprafilm 6x5in Barrier Adhesion Sterile Disposable Latex Free - [id number] Implanted:Qty: 1 on 04/27/2020 by Vinny Burgos MD PhD at [facility] N/A: Heart [employer] [id number] 10/12/2022 [id number] / / [id number] Procedures Procedure Name Priority Date/Time Associated Diagnosis Comments POCT HEMOGLOBIN A1C Routine 02/06/2025 1 :18 PM CDT Controlled type 2 diabetes mellitus without complication, without long-term current use of insulin (HCC) EGFR Routine 12/19/2024 12:30 PM MEASUREMENT SUPERVISOR Hypertension associated with diabetes (HCC) LIPID PANEL Routine 12/19/2024 12:30 PM MEASUREMENT SUPERVISOR Hyperlipidemia, unspecified hyperlipidemia type COLONOSCOPY Routine 07/17/2024 8:23 AM CDT DIABETIC EYE EXAM Routine 01/25/2023 PSA SCREEN Routine 06/28/2021 1:24 PM CDT Prostate cancer screening HEPATITIS C ANTIBODY STAT 04/16/2020 3:21 AM CDT ALBUMIN CREATININE RATIO, URINE Routine 10/09/2018 2:11 PM MEASUREMENT SUPERVISOR from Last 3 Months or Most Recently Relevant to Health Maintenance Results * (ABNORMAL) POCT hemoglobin A1c (02/06/2025 1:18 PM CDT) Hemoglobin A1C, POC 8.1 4.0 - 5.6 % Blood 02/06/2025 1:18 PM CDT us Marcell Murnoe MD POINT OF CARE TEST ORDERAB LES Final Result * (ABNORMAL) eGFR (12/19/2024 12:30 PM MEASUREMENT SUPERVISOR) Pathologist [facility] eGFR 46(L) >=60 mL/min/1. 73 m2 Comment: Interpretive Data Reference Interval Normal >/= 90 mL/min/1.73m2 Mildly decreased* 60 - 89 mL/min/1.73m2 Mildly to moderately decreased 45 - 59 mL/min/1.73m2 Moderately to severely decreased 30 - 44 mL/min/1.73m2 Severely decreased 15 - 29 mL/min/1.73m2 Kidney Failure < 15 mL/min/1.73m2 *Relative to young adult level Estimated glomerular filtration rate is determined by the 2020 CKD-EPI equation recommended by the National Kidney Foundation (A Unifying Approach to GFR Estimation: Recommendations of the NKF-ASK Task Force on Reassessing the Inclusion of Race in Diagnosing Kidney Disease, JASN 2020). The CKD-EPI equation should not be used for patients with unstable renal function and has not been validated in children and those over 70. Current interpretive data was last reviewed 2021. Blood 12/19/2024 12:3 0 PM MEASUREMENT SUPERVISOR 12/19/2024 12:50 PM MEASUREMENT SUPERVISOR us Paul Thurman NP LAB BLOOD ORDERABLES Fin al Result [facility] [place] [address] * (ABNORMAL) Lipid panel (12/19/2024 12:30 PM MEASUREMENT SUPERVISOR) Cholesterol 93 30 - 199 mg/dL Comment: Interpretive Data Ages < or = 19 years Acceptable: <170 mg/dL Borderline high: 170-199 mg/dL High: >or= 200 mg/dL Ages > or = 20 years Desirable: <200 mg/dL Borderline high: 200-239 mg/dL High: >or= 240 mg/dL Literature References: 1. Expert Panel on Integrated Guidelines for Cardiovascular Health and Risk Reduction in Children and Adolescents. Pediatrics 2011;128:S213 2. NCEP Expert Panel. Circulation 2004;110:227 Current Interpretive Data was last revised on 2018. Triglycerides 64 <=149 mg/dL [facility] Comment: Interpretive Data Ages < or = 9 years Acceptable: <75 mg/dL Borderline high: 75-99 mg/dL High: >or= 100 mg/dL Ages 10 to 20 years Acceptable: <90 mg/dL Borderline high: 90-129 mg/dL High: >or= 130 mg/dL Ages > or = 20 years Desirable: <150 mg/dL Borderline high: 150-199 mg/dL High: 200-499 mg/dL Very high: >or= 499 mg/dL Literature References: 1. Expert Panel on Integrated Guidelines for Cardiovascular Health and Risk Reduction in Children and Adolescents. Pediatrics 2011;128:S213 2. NCEP Expert Panel. Circulation 2004;110:227 Current Interpretive Data was last revised on 2018. HDL 37(L) >=40 mg/dL [facility] Comment: Interpretive Data Ages < or = 19 years Acceptable: >45 mg/dL Borderline low: 40-45 mg/dL Low: <40 mg/dL Ages > or = 20 years Desirable: >or= 60 mg/dL Low: <40 mg/dL Literature References: 1. Expert Panel on Integrated Guidelines for Cardiovascular Health and Risk Reduction in Children and Adolescents. Pediatrics 2011;128:S213 2. NCEP Expert Panel. Circulation 2004;110:227 Current Interpretive Data was last revised on 2018. LDL, calculated 42 <=129 mg/dL [facility] Comment: Interpretive Data Ages < or = 19 years Acceptable: <110 mg/dL Borderline high: 110-129 mg/dL High: >or= 130 mg/dL Ages > or = 20 years Optimal: <100 mg/dL Near optimal: 100-129 mg/dL Borderline high: 130-159 mg/dL High: >160 mg/dL Calculated using the Blaise LDL-C estimating equation. This equation was implemented on 2024. Prior to this date LDL-C was estimated using the Friedewald equation. Literature References: 1. Expert Panel on Integrated Guidelines for Cardiovascular Health and Risk Reduction in Children and Adolescents. Pediatrics 2011;128:S213 2. NCEP Expert Panel. Circulation 2004;110:227 3. Blaise Cary et al. JAS Cardiol. 2020 March 13;5(5):540-548. doi: 10.1001/jamacardio.2020.0013 Current Interpretive Data was last revised on 2024. Non-HDL Cholesterol 56 mg/dL [facility] Comment: Interpretive Data Ages < or = 19 years Acceptable: <120 mg/dL Borderline high: 120-144 mg/dL High: >145 mg/dL Ages > or = 20 years When triglycerides are >200 mg/dL, Non-HDL cholesterol is a secondary target of therapy with treatment goals that are 30 mg/dL greater than the LDL cholesterol target. Literature References: 1. Expert Panel on Integrated Guidelines for Cardiovascular Health and Risk Reduction in Children and Adolescents. Pediatrics 2011;128:S213 2. NCEP Expert Panel. Circulation 2004;110:227 Current Interpretive Data was last revised on 2018. Chol/HDL ratio 3 [facility] Blood 12/19/2024 12:3 0 PM MEASUREMENT SUPERVISOR 12/19/2024 12:39 PM MEASUREMENT SUPERVISOR us Paul Thurman NP LAB BLOOD ORDERABLES Fin al Result [facility] Department of Laboratories [place], [place] [id number] * Colonoscopy (07/17/2024 8:23 AM CDT) Anatomical Region Laterality Modality Other us Historical Provider ENDOSCOPY PROCEDURES Zuri l Result * Diabetic Eye Exam (01/25/2023) Historical Provider HEALTH MAINTENANCE Final Result * PSA screen (06/28/2021 1:24 PM CDT) Pathologist [facility] PSA 0.3 < OR = 4.0 ng/mL [facility] Comment: The total PSA value from this assay system is standardized against the WHO standard. The test result will be approximately 20% lower when compared to the equimolar-standardized total PSA (Brooke Dawson). Comparison of serial PSA results should be interpreted with this fact in mind. This test was performed using the Siemens chemiluminescent method. Values obtained from different assay methods cannot be used interchangeably. PSA levels, regardless of value, should not be interpreted as absolute evidence of the presence or absence of disease. Blood specimen (specimen) 06/28/2021 1:24 PM CDT 06/28/2021 1:24 PM CDT Narrative [facility] - 06/29/2021 7:09 AM CDT PT VARIFIED ALL INFO/HAD INS CARD ON PHONE FASTING:NO FASTING: NO Marcell Munroe MD LAB BLOOD ORDERABLES Final Result [facility] [address] [place] [address] * Hepatitis C antibody (04/16/2020 3:21 AM CDT) [facility] Hep C Ab Nonreactive Nonreactive [facility] Blood specimen (specimen) 04/16/2020 3:21 AM CDT 04/16/2020 4:43 AM CDT Ivy Baltazar MD LAB MICROBIOLOGY - GENER AL ORDERABLES Edited Result - Final [facility] Department [place] [address] * (ABNORMAL) Microalbumin / creatinine ratio, urine, random (10/09/2018 2:11 PM MEASUREMENT SUPERVISOR) Pathologist [facility] CREATININE, RANDOM URINE 67 20 - 320 mg/dL [facility] HISTORICAL RESULTS MICROALBUMIN 14.1 See Note: mg/dL [facility] HISTORICAL RESULTS Comment: Reference Range: Reference Range Not established MICROALBUMIN/CREAT ININE RATIO, RANDOM URINE 210(H) <30 mcg/mg creat [facility] HISTORICAL RESULTS Comment: The ADA defines abnormalities in albumin excretion as follows: Category Result (mcg/mg creatinine) Normal < 30 Microalbuminuria 30-299 Clinical albuminuria > OR = 300 The ADA recommends that at least two of three specimens collected within a 3-6 month period be abnormal before considering a patient to be within a diagnostic category. 10/09/2018 2:11 PM MEASUREMENT SUPERVISOR 10/10/2018 11:50 AM MEASUREMENT SUPERVISOR Narrative [facility] HISTORICAL RESULTS - 10/10/2018 11:39 AM MEASUREMENT SUPERVISOR FASTING:YES FASTING: YES PERFORMING LAB: [place], [facility] [address], [place] [address] Mega Castro D.O., MPH Marcell Munroe MD LAB URINE ORDERABLES Final Result [facility] HISTORICAL RESULTS from Last 3 Months or Most Recently Relevant to Health Maintenance Insurance [facility] MEDICARE [facility] MEDICARE Address: [facility] [id number] [place] [address] [facility] T MEDICARE [employer] OPEN ACCESS MEDICARE [place] [id number] [facility] MEDICARE T MEDICARE Advance Directives For more information, please contact: [phone] * Full Code (Latest Code Status on File) Date Activated Date Inactivated Comments 05/07/2020 6:16 PM 11/02/2021 6:44 AM * Full Code Date Activated Date Inactivated Comments 04/16/2020 12:55 AM 05/06/2020 8:07 PM Care Teams Vp Production Relationship Specialty Start Date End Date Marcell Munroe MD PCP - General 01/18/19 Rj Chopra MD Surgeon Cardiothoracic Surgery 05/06/20 Miscellaneous, Not In File 05/06/20 Emmanuel Alvarenga MD Consulting Physician Plastic Surgery 11/02/21
--- OUTSIDE RECORDS SUMMARY | 2025-03-20 05:11 | XMS_ITS | Encounter Summary ---
Author Organization [facility] Facility Care Team Providers Care Pv Design And Installation Technician Name Role Phone Marcell Munroe MD Primary Care Provider [phone] Marcell Munroe MD Primary Care Provider [phone] Rj Chopra MD Unavailable Miscellaneous, Not In File Unavailable Unava ilable Nila Lopez RN Unavailable [phone] ChavezEmmanuel awad MD Unavailable [phone] Encounter Details Date Type Department Care Team (Latest Contact Info) Description 09/29/2017 Orders Only [facility] CLINCONV ProviderMillicent MD [address] [place], [place] [id number] Social History Tobacco Use Types Packs/Day Years Used Date Smoking Tobacco: Never Assessed Sex and Gender Information Value Date Recorded Sex Assigned at Not on file Legal Sex Male 8:16 AM HOME OFFICE CLAIMS EXAMINER Gender Identity Not on file Sexual Orientation Not on file documented as of this encounter Plan of Treatment Not on file documented as of this encounter Procedures Procedure Name Priority Date/Time Associated Diagnosis Comments COLONOSCOPY - SCAN 09/29/2017 12 :00 AM HOME OFFICE CLAIMS EXAMINER documented in this encounter Results * COLONOSCOPY - SCAN (09/29/2017 12:00 AM HOME OFFICE CLAIMS EXAMINER) Narrative 09/29/2017 12:00 AM HOME OFFICE CLAIMS EXAMINER Ordered by an unspecified provider. Historical Provider [...] documented as of this encounter Care Teams Pv Design And Installation Technician Relationship Specialty Start Date End Date Marcell Munroe MD PCP - General 01/18/19 Marcell Munroe MD PCP - General 12/18/18 01/17/19 Rj Chopra MD Surgeon Cardiothoracic Surgery 05/06/20 Miscellaneous, Not In File 05/06/20 Nila Lopez, RN [address] [place] [address] [address] [place], [place] [id number] Toxicology Teacher 05/07/20 06/14/20 Emmanuel Alvarenga MD [address] [place] [address] [address] [place] [address] Consulting Physician Plastic Surgery 11/02/21 documented as of this encounter
--- OUTSIDE RECORDS SUMMARY | 2025-03-20 05:11 | XMS_ITS | Encounter Summary ---
Author Organization [facility] Facility Care Team Providers Care Occupational Therapy Aide Name Role Phone Marcell Munroe MD Primary Care Provider [phone] Marcell Munroe MD Primary Care Provider [phone] Rj Chopra MD Unavailable Miscellaneous, Not In File Unavailable Unava ilable Nila Lopez RN Unavailable [phone] ChavezEmmanuel awad MD Unavailable [phone] Encounter Details Date Type Department Care Team (Latest Contact Info) Description 10/17/2016 Orders Only [facility] CLINCONV ProviderMillicent MD [address] [place], [place] [id number] Social History Tobacco Use Types Packs/Day Years Used Date Smoking Tobacco: Never Assessed Sex and Gender Information Value Date Recorded Sex Assigned at Not on file Legal 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 Gender Identity Not on file Sexual Orientation Not on file documented as of this encounter Plan of Treatment Not on file documented as of this encounter Procedures Procedure Name Priority Date/Time Associated Diagnosis Comments COLONOSCOPY - SCAN 09/07/2017 12 :00 AM CDT documented in this encounter Results * COLONOSCOPY - SCAN (09/07/2017 12:00 AM CDT) Narrative 09/07/2017 12:00 AM CDT Ordered by an unspecified [...] documented as of this encounter Care Teams Occupational Therapy Aide Relationship Specialty Start Date End Date Marcell Munroe MD PCP - General 01/18/19 Marcell Munroe MD PCP - General 12/18/18 01/17/19 Rj Chopra MD Surgeon Cardiothoracic Surgery 05/06/20 Miscellaneous, Not In File 05/06/20 Nila Lopez, TIBURCIO [address] [place] [address] [address] [place], [place] [id number] Certified Scrum Master 05/07/20 06/14/20 Emmanuel Alvarenga MD [address] [place] [address] [address] [place] [address] Consulting Physician Plastic Surgery 11/02/21 documented as of this encounter
--- OUTSIDE RECORDS SUMMARY | 2025-03-20 05:11 | XMS_ITS | Referral Summary ---
Author Organization [facility] Address [address] [facility] [place] [address] Care Team Providers Care Sawing And Assembly Supervisor Name Role Phone Marcell Munroe MD Primary Care Provider [phone] Rj Chopra MD Unavailable Miscellaneous, Not In File Unavailable Unava ilable Emmanuel Alvarenga MD Unavailable [phone] Encounters Date Type Department Care Team Description 02/10/2025 Telephone [facility] Medical [facility] Primary [facility] [address] [place] [address] Marcell Munroe MD Medical Question/Miscellaneo us 02/06/2025 12:45 PM CDT Office Visit [facility] Primary Care [address] [place] [address] Marcell Munroe MD Controlled type 2 diabetes mellitus without complication, without long-term current use of insulin (HCC) (Primary Dx); Mixed hyperlipidemia; Hypertension associated with diabetes (HCC); Coronary artery disease involving [place] heart with angina pectoris, unspecified vessel or lesion type; Acute bilateral low back pain without sciatica 01/21/2025 Results Follow-Up [facility] Cardiology [address] [place] [address] [address] [place] [address] Herlinda Mora RN 01/16/2025 Telephone [facility] Medical [facility] Primary [facility] [address] [place] [address] Marcell Munroe MD Forms Request from Last 3 Months Allergies Active Allergy Reactions Criticality Noted Date [...] glucose sensor (FREESTYLE NATHANIEL 14 DAY SENSOR [facility]) Use as directed A ctive fluticasone propionate [...] TABLET BY MOUTH EVERY DAY 90 tablet 03/11/20 25 Active pioglitazone (ACTOS) 45 mg [...] 04/03/2023 Assessment & Plan (12/06/2023 10:58 AM CRTTS): BMI Follow-up includes: nutrition counseling and exercise counseling. Assessment & Plan (04/12/2023 9:14 AM CDT): BMI Follow-up includes: nutrition counseling and exercise counseling. History of colon polyps 10/11/2022 Assessment & Plan (04/12/2023 9:16 AM CDT): History of colon polyp removed 2016. Needs repeat colonoscopy. Assessment & Plan (10/11/2022 3:46 PM CRTTS): Needs repeat colonoscopy Keloid scar 05/05/2021 Assessment [...] 10/01/2020 Assessment & Plan (10/01/2020 2:42 PM CRTTS): Itchy skin incision side chest but no sign of infection and we will give him some topical hydrocortisone. Use only as needed. Risk of atrophy and tolerance. History of pericarditis 10/01/2020 Assessment & Plan (10/01/2020 2:44 PM CRTTS): I did discuss the nature of this diagnosis with him. The exact cause of his pericarditis is unclear. Encounter for Medicare annual wellness exam 08/14 Assessment & Plan (10/13/2021 2:01 PM CRTTS): BMI Follow-up includes: nutrition counseling and exercise counseling. ALSO REMINDED HE NEEDS DIABETIC EYE EXAM. Hypoglycemia 06/04/2020 Assessment & Plan (02/02/2021 4:15 PM CDT): No recurrence Assessment & Plan (10/01/2020 2:43 PM CRTTS): No recur Assessment & Plan (06/04/2020 2:22 [...] for sats > 92% 1700: Extubated to [place]. Acute on chronic renal failure 04/27/2020 Assessment [...] 04/22/2020 Assessment & Plan (12/19/2024 11:59 AM CRTTS): Status post pericardectomy in 2019. Echo on 08/2023 with stable findings. Assessment & Plan (05/04/2020 4:46 PM CDT): S/p pericardectomy on 6/15 . - ASA, metoprolol, low dose statin [...] (04/21/2020): Added automatically from request for surgery [id number] Assessment & Plan (05/04/2020 4:46 PM CDT): [...] 11/14/2019 Assessment & Plan (11/14/2019 8:43 AM CRTTS): Advised to sleep with his head elevated on an extra pillow and to use a cool mist vaporizer at night to help with his cough. See plan of care for acute non- recurrent pansinusitis. Acute non-recurrent pansinusitis 11/14/2019 Assessment & Plan (11/14/2019 8:43 AM CRTTS): Omnicef and Medrol Dosepak as directed. Informed [...] Improved. Assessment & Plan (10/30/2019 3:40 PM CRTTS): To be expected recovering from illness and symptoms are fairly mild. Labs just done recently normal. Type 2 diabetes mellitus wit h hyperglycemia, without long-term current use of insulin 07/29/2019 Assessment & Plan (10/08/2024 4:16 PM CRTTS): Taking glipizide 10 mg daily. Metformin a [...] glipizide Assessment & Plan (12/07/2023 11:33 AM CRTTS): A1C IS NOT IMPROVED AT 8.6. HIS [...] b.i.d.. Assessment & Plan (10/12/2022 12:04 PM CRTTS): A1c is worse. Will continue metformin and [...] 100s Assessment & Plan (10/13/2021 2:08 PM CRTTS): Worsening control of diabetes A1c 7.7 today [...] metformin Assessment & Plan (10/01/2020 2:43 PM CRTTS): Worsening glucose. A1c up to 8.0. Will [...] A1c Assessment & Plan (10/30/2019 3:38 PM CRTTS): A1c needs better but he has had [...] 03/29/2019 Assessment & Plan (10/11/2022 3:43 PM CRTTS): BMI Follow-up includes: nutrition counseling and exercise counseling. Assessment & Plan (04/10/2022 2:54 PM CDT): BMI Follow-up includes: nutrition counseling and exercise counseling. Assessment & Plan (10/30/2019 3:39 PM CRTTS): BMI Follow-up includes: nutrition counseling and exercise [...] controlled. Assessment & Plan (12/19/2024 12:22 PM CRTTS): Continue Atorvastatin. Repeat FLP. Assessment & Plan (10/08/2024 4:14 PM CRTTS): Continue atorvastatin at same dosage. Well controlled. [...] visit Assessment & Plan (12/06/2023 10:56 AM CRTTS): Continue atorvastatin at same dosage. Well controlled. Assessment & Plan (04/12/2023 9:09 AM CDT): Worsening lipidemia continue atorvastatin 80 mg daily. Recommend add Zetia 10 mg daily. Addition of Zetia declined. Assessment & Plan (10/11/2022 3:42 PM CRTTS): Continue metoprolol at same dosage. Well controlled. Assessment & Plan (04/10/2022 2:54 PM CDT): Continue atorvastatin at same dosage. Well controlled. Assessment & Plan (10/12/2021 4:48 PM CRTTS): Continue atorvastatin at same dosage. Well controlled. Assessment & Plan (05/04/2021 2:58 PM CDT): Continue atorvastatin at same dosage. Well controlled. Assessment & Plan (02/02/2021 4:15 PM CDT): Continue atorvastatin at same dosage. Well controlled. Assessment & Plan (05/17/2020 3:03 PM CDT): Continue medication at same dosage. Well controlled. Assessment & Plan (10/30/2019 3:39 PM CRTTS): Continue medication at same dosage. Well controlled. Diabetes mellitus with nephropathy 10/17/2016 Allergic rhinitis 06/21/2016 Assessment & Plan (03/28/2024 1:26 PM CDT): Worsening of allergies but already on Flonase, Singulair, and Fatou. Assessment & Plan (02/02/2021 4:16 PM CDT): Continue Singulair/Flonase at same dosage. Well controlled. Assessment & Plan (03/30/2020 2:56 PM CDT): Add Singulair Assessment & Plan (10/30/2019 3:39 PM CRTTS): Continue medication at same dosage. Well controlled. Assessment & Plan (04/02/2019 9:29 AM CDT): Continue medication as needed Hypertension associated with diabetes 07/01/2009 Assessment & Plan (02/05/2025 8:22 AM CDT): Continue Lopressor at same dosage. Well controlled. Assessment & Plan (12/19/2024 12:22 PM CRTTS): Reasonably controlled. Continue metoprolol. Repeat CMP. Assessment & Plan (10/08/2024 4:14 PM CRTTS): Continue metoprolol at same dosage. Well controlled. Assessment & Plan (07/04/2024 2:38 PM CDT): Continue metoprolol at same dosage. Well controlled. Assessment & Plan (05/10/2024 2:27 PM CDT): Continue metoprolol at same dosage. Well controlled. Assessment & Plan (03/27/2024 1:00 PM CDT): Continue metoprololat same dosage. Well controlled. Assessment & Plan (12/06/2023 10:57 AM CRTTS): Continue atenolol at same dosage. Well controlled. Assessment & Plan (04/12/2023 9:11 AM CDT): Continue metoprolol at same dosage. Well controlled. Assessment & Plan (10/11/2022 3:41 PM CRTTS): Continue metoprolol at same dosage. Well controlled. Assessment & Plan (04/10/2022 2:53 PM CDT): Continue metoprolol at same dosage. Well controlled. Assessment & Plan (10/12/2021 4:45 PM CRTTS): Continue metoprolol at same dosage. Well controlled. [...] stable Assessment & Plan (10/30/2019 3:39 PM CRTTS): Avoid NSAIDs or PPIs as much as [...] n Assessment & Plan (10/30/2019 3:39 PM CRTTS): Continue medication at same dosage. Well controlled. [...] sparingly. Swelling of lower extremity 06/12/2009 07/29/2019 Immunizations Immunization Administration Dates Next Due Influenza, [...] Free 11/22/2016 Tdap 11/13/2016 ZOSTER Recombinant 01/21/2025,05/17/2022 Social History Tobacco Use Types Packs/Day Years [...] on file Legal Sex Male 8:16 AM CRTTS Gender Identity Not on file Sexual Orientation Not on file Last Filed Vital Signs Vital Sign Reading [...] 02/06/2025 12:56 PM CDT Plan of Treatment Not on file Medical Devices Implanted Type Area Analytical Chemistry Teacher Device Identifier Shelf Expiration Date Model / Serial / Lot [employer] [id number] Seprafilm 6x5in Barrier Adhesion Sterile Disposable Latex Free - [id number] Implanted:Qty: 1 on 04/27/2020 by Vinny Burgos MD PhD at [facility] N/A: Heart [employer] [id number] 10/12/2022 [id number] / / [id number] Procedures Procedure Name Priority Date/Time Associated Diagnosis Comments POCT HEMOGLOBIN A1C Routine 02/06/2025 1 :18 PM CDT Controlled type 2 diabetes mellitus without complication, without long-term current use of insulin (HCC) EGFR Routine 12/19/2024 12:30 PM CRTTS Hypertension associated with diabetes (HCC) LIPID PANEL Routine 12/19/2024 12:30 PM CRTTS Hyperlipidemia, unspecified hyperlipidemia type COLONOSCOPY Routine 07/17/2024 8:23 AM CDT DIABETIC EYE EXAM Routine 01/25/2023 PSA SCREEN Routine 06/28/2021 1:24 PM CDT Prostate cancer screening HEPATITIS C ANTIBODY STAT 04/16/2020 3:21 AM CDT ALBUMIN CREATININE RATIO, URINE Routine 10/09/2018 2:11 PM CRTTS from Last 3 Months or Most Recently Relevant to Health Maintenance Results * (ABNORMAL) POCT hemoglobin A1c (02/06/2025 1:18 PM CDT) Pathologist [facility] Hemoglobin A1C, POC 8.1 4.0 - 5.6 % Blood 02/06/2025 1:18 PM CDT Marcell Munroe MD POINT OF CARE TEST ORDERAB LES Final Result * (ABNORMAL) eGFR (12/19/2024 12:30 PM CRTTS) Pathologist [facility] eGFR 46(L) >=60 mL/min/1. 73 m2 Comment: [...] reviewed 2021. Blood 12/19/2024 12:3 0 PM CRTTS 12/19/2024 12:50 PM CRTTS us Paul Thurman NP LAB BLOOD ORDERABLES Fin al Result [facility] Department [place] [address] * (ABNORMAL) Lipid panel (12/19/2024 12:30 PM CRTTS) Cholesterol 93 30 - 199 mg/dL Comment: [...] revised on 2018. Triglycerides 64 <=149 mg/dL [facility] Comment: Interpretive Data Ages < or = [...] revised on 2018. HDL 37(L) >=40 mg/dL [facility] Comment: Interpretive Data Ages < or [...] 2018. LDL, calculated 42 <=129 mg/dL [facility] Comment: Interpretive Data Ages < or [...] NCEP Expert Panel. Circulation 2004;110:227 3. Blaise Stallings al. JAS Cardiol. 2020 March 13;5(5):540-548. doi: 10.1001/jamacardio.2020.0013 Current Interpretive Data was last revised on 2024. Non-HDL Cholesterol 56 mg/dL [facility] Comment: Interpretive Data Ages < or [...] last revised on 2018. Chol/HDL ratio 3 [facility] ZHENG Blood 12/19/2024 12:3 0 PM CRTTS 12/19/2024 12:39 PM CRTTS Paul Thurman NP LAB BLOOD ORDERABLES Fin al Result [facility] [place] [address] * Colonoscopy (07/17/2024 8:23 AM CDT) Anatomical Region Laterality Modality Other Historical Provider MD ENDOSCOPY PROCEDURES Zuri l Result * Diabetic Eye Exam (01/25/2023) Historical Provider MD HEALTH MAINTENANCE Final Result * PSA screen (06/28/2021 1:24 PM CDT) PSA 0.3 < OR = 4.0 ng/mL [facility] Comment: The total PSA value from this assay system is standardized against the WHO standard. The test result will be approximately 20% lower when compared to the equimolar-standardized total PSA ([place]). Comparison of serial PSA results should be [...] INS CARD ON PHONE FASTING:NO FASTING: NO us Marcell Munroe MD LAB BLOOD ORDERABLES Final Result [facility] [id number] [id number] * Hepatitis C antibody (04/16/2020 3:21 AM CDT) Pathologist [facility] Hep C Ab Nonreactive Nonreactive [facility] Blood specimen (specimen) 04/16/2020 3:21 AM CDT 04/16/2020 4:43 AM CDT Ivy Baltazar MD LAB MICROBIOLOGY - GENER AL ORDERABLES Edited Result - Final Performing Organization Address City/[facility]/ZIP Co de Phone Number [facility] [place] [address] * (ABNORMAL) Microalbumin / creatinine ratio, urine, random (10/09/2018 2:11 PM CRTTS) Pathologist [facility] CREATININE, RANDOM URINE 67 20 - 320 mg/dL [facility] HISTORICAL RESULTS MICROALBUMIN 14.1 See Note: mg/dL [facility] HISTORICAL RESULTS Comment: Reference Range: Reference Range Not established MICROALBUMIN/CREAT ININE RATIO, RANDOM URINE 210(H) <30 mcg/mg creat [facility] HISTORICAL RESULTS Comment: The ADA defines abnormalities in albumin excretion as follows: Category Result (mcg/mg creatinine) Normal < 30 Microalbuminuria 30-299 Clinical albuminuria > OR = 300 The ADA recommends that at least two of three specimens collected within a 3-6 month period be abnormal before considering a patient to be within a diagnostic category. 10/09/2018 2:11 PM CRTTS 10/10/2018 11:50 AM CRTTS Narrative [facility] HISTORICAL RESULTS - 10/10/2018 11:39 AM CRTTS FASTING:YES FASTING: YES PERFORMING LAB: [place], [facility] [address] [address] [place] [id number] Mega Castro D.O., MPH us Marcell Munroe MD LAB URINE ORDERABLES Final Result [facility] HIST[facility]ICAL RESULTS from Last 3 Months or Most Recently Relevant to Health Maintenance Insurance A[employer]NA MEDICARE [employer] [facility] AET MEDICARE [employer] OPEN ACCESS MEDICARE AETNA MEDICARE AETNA MEDICARE Advance Directives For more information, please contact: [phone] * Full Code (Latest Code Status on File) Date Activated Date Inactivated Comments 05/07/2020 6:16 PM 11/02/2021 6:44 AM * Full Code Date Activated Date Inactivated Comments 04/16/2020 12:55 AM 05/06/2020 8:07 PM Care Teams Sawing And Assembly Supervisor Relationship Specialty Start Date End Date Marcell Munroe MD PCP - General 01/18/19 Rj Chopra MD Surgeon Cardiothoracic Surgery 05/06/20 Miscellaneous, Not In File 05/06/20 Emmanuel Alvarenga MD Consulting Physician Plastic Surgery 11/02/21
--- OUTSIDE RECORDS SUMMARY | 2025-03-20 05:11 | XMS_ITS | Clinical Summary ---
Author Organization [facility] Address [address] [place] [address] Care Team Providers Care Waiter/Waitress Bar Name Role Phone Unavailable Primary Care Provider Unavailabl e Social History Tobacco Use Types Packs/Day Years Used Date Smoking Tobacco: Never Assessed Sex and Gender Information Value Date Recorded Sex Assigned at Not on file Legal Sex Male 5:02 PM CDT Gender Identity Not on file Sexual Orientation Not on file Plan of Treatment Health Maintenance Due Date Last Done Comments Colorectal Cancer Screening Colonoscopy (10 Years) 1950 Hepatitis C 01/16/1970 DTaP, Tdap and Td Vaccines ( 1 - Tdap) 11/23/2016 11/22/2016 Zoster Vaccines (2 of 2) 07/12/2022 05/17/2022 COVID-19 Vaccine (3 - 2023-2 5 season) 2024 02/21/2021, 01/28/2021 RSV Immunization or 60+ Years (1 - 1-dose 75+ series) 01/16/2027 Pneumococcal Vaccine: 50+ Years Completed 04/13/2023, 04/19/2017 Meningococcal B Vaccine Aged Out No l onger eligible based on patient's age to complete this topic Meningococcal Vaccine Aged Out No hien fabian eligible based on patient's age to complete this topic RSV Immunizations Under 20 Months Aged Out No longer eligible b ased on patient's age to complete this topic
[2025-03-20 05:13] VITALS: BP 221/99; PULSE 67; RESP 16; TEMP 36.7; O2SAT 100
--- NOTE | 2025-03-20 05:24 | ECG_ITS ---
Test Date: 2025-03-20 05:43:16 Measurements Intervals [place] Rate: 66 P: 54 DE: 185 QRS: -45 QRSD: 115 T: -8 QT: 405 QTc: 424 Interpretive Statements SINUS RHYTHM LEFT ANTERIOR FASCICULAR BLOCK [QRS AXIS <= -45, QR IN I, RS IN II] No previous ECG available for comparison Electronically Signed On 03-20-2025 10:08:12 CDT by Addie Cameron M.D.
--- NOTE | 2025-03-20 05:29 | ED_ITS ---
HPI - General Adult General Chief complaint: Abdominal Pain Stated complaint: abd pain Time Seen by Provider: 03/20/25 05:16 History of Present Illness HPI narrative: Patient is a 75-year-old gentleman presents emergency department with chief complaint of abdominal pain and nausea. The patient reports that his abdomen feels bloated and distended patient reports that the symptoms are not improved by anything orally worsened by anything. Related Data Home Medications ?Medication ?Instructions ?Recorded ?Confirmed ?Last Taken ?Type atorvastatin 10 mg tablet 40 mg PO DAILY 04/02/20 10/05/24 06/25/20 History fluticasone propionate 50 1 spray intranasal DAILY PRN 04/02/20 10/05/24 06/26/20 History mcg/actuation nasal Allergy Symptoms spray,suspension metformin 1,000 mg tablet 1,000 mg PO BID 04/02/20 10/05/24 06/26/20 History montelukast 10 mg tablet 10 mg PO DAILY 04/02/20 10/05/24 06/26/20 History omeprazole 20 mg capsule,delayed 20 mg PO BID 04/02/20 10/05/24 06/26/20 History release 20 ascorbic acid (vitamin C) 1,000 mg PO DAILY 06/26/20 10/05/24 06/26/20 History aspirin 81 mg tablet,delayed 81 mg PO DAILY 06/26/20 10/05/24 06/26/20 History release (Aspir-) 81 cetirizine 10 mg tablet (Zyrtec) 10 mg PO DAILY PRN Allergic 06/26/20 10/05/24 06/26/20 History Symptoms 10 fexofenadine 180 mg tablet 180 mg PO DAILY PRN Allergic 06/26/20 10/05/24 06/26/20 History (Fatou Allergy) Symptoms 180 furosemide 40 mg tablet 40 mg PO BID 06/26/20 10/05/24 06/26/20 History lactulose 20 gram/30 mL oral 20 g PO PRN PRN Constipation 06/26/20 10/05/24 Unknown History solution potassium chloride 20 mEq 20 meq PO BID 06/26/20 10/05/24 06/26/20 History tablet,extended release 20 metoprolol tartrate 25 mg tablet 25 mg PO DAILY 10/05/24 10/05/24 Unknown History Allergies Allergy/AdvReac Type Severity Reaction Status Date / Time mold Allergy Intermediate Sneezing Verified 03/20/25 05:10 pollen extracts Allergy Intermediate Sneezing Verified 03/20/25 05:10 Review of Systems 2 Review of Systems: A 10 system review of systems was completed on the patient and is negative except for what is stated in the HPI. Nursing and ancillary documentation was reviewed. [facility] Past Medical History Medical History Diastolic heart failure Noted on echocardiogram from March 2020 in combined with pulmonary hypertension, reduced right ventricular systolic dysfunction and constrictive pericarditis Obstructive sleep apnea Intolerant to CPAP Cirrhosis Suspected to be due to alcohol use. Pulmonary hypertension Echocardiogram 04/03/2020: EF 65-70% Left ventricular septal wall motion abnormal consistent with constrictive pericarditis D shaped septum in systole suggesting right ventricular pressure overload Global longitudinal strain Reduced right ventricular systolic function Moderate pulmonary hypertension with RVSP of 54 hour Elevated right atrial pressures Hyperlipidemia DM2 (diabetes mellitus, type 2) GERD (gastroesophageal reflux disease) Hypertension Surgical History Surgical History Surgical history unknown The patient denies any surgeries Family History Family History Sibling Hypertension Cerebrovascular accident Sibling Cerebrovascular accident Hypertension Mother Diabetes mellitus Hypertension Social History Social History Social History: Primary care physician: Dr. Marcell Munroe Code status: Full code per Smoking status: Never smoker Second hand tobacco smoke exposure: Yes Alcohol intake: former Alcohol use details: The patient reports that he used to drink 3 or 4 alcoholic beverages a few times a week. He states that he cut back on his alcohol consumption and officially quit earlier this year. Substance use: never Substance use type: does not use Other substance usage details: social drinker Living arrangements: with family Additional living arrangements comments: He lives at home with his of 36 years. He has 1 adult daughter. 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 Gender identity (if verbalized by the patient): Male Spiritual care concerns: No Exam 2 Narrative: GENERAL: Well-appearing, well-nourished, and in no acute distress. HEAD: Normocephalic, atraumatic. EYES: PERRLA and EOMI. ENT: Nares clear, no rhinorrhea or epistaxis. Mucous membranes moist. NECK: Supple. CHEST: Clear to auscultation. No respiratory distress. HEART: Regular rate and rhythm. No murmur heard. Normal peripheral pulses. ABDOMEN: Soft, slightly distended, diffuse tenderness to palpation, normal active bowel sounds. EXTREMITIES: Normal range of motion. No edema. SKIN: Warm, dry, no rash. NEURO: No focal deficits. Alert and oriented x3. PSYCH: Normal mood and affect. Course Vital Signs Vital signs: Vital Signs Temperature 36.7 C 03/20/25 05:13 Pulse Rate 67 03/20/25 05:13 Respiratory Rate 16 03/20/25 05:13 Blood Pressure 221/99 H 03/20/25 05:13 Pulse Oximetry 100 03/20/25 05:13 Oxygen Delivery Room Air 03/20/25 05:13 Temperature 36.7 C 03/20/25 05:13 Pulse Rate 67 03/20/25 08:22 Respiratory Rate 20 03/20/25 08:22 Blood Pressure 170/87 H 03/20/25 08:22 Pulse Oximetry 100 03/20/25 08:22 Oxygen Delivery Room Air 03/20/25 05:13 Medical Decision Making [facility] Narrative Medical decision making narrative: Differential diagnosis includes intra-abdominal infection, diverticulitis, colitis, UTI, pyelonephritis, Laboratory studies were obtained on the patient showed a white count of 8.6 electrolytes are within normal limits glucose was slightly elevated at 32 the her urinalysis showed no evidence UTI COVID flu RSV are negative CT scan of the abdomen pelvis showed there acute findings Patient received antiemetics and is feeling much better at this time patient will be discharged home to follow-up with his primary care provider Vital Signs Vital Signs: Vital Signs Temperature 36.7 C 03/20/25 05:13 Pulse Rate 67 03/20/25 05:13 Respiratory Rate 16 03/20/25 05:13 Blood Pressure 221/99 H 03/20/25 05:13 Pulse Oximetry 100 03/20/25 05:13 Oxygen Delivery Room Air 03/20/25 05:13 Temperature 36.7 C 03/20/25 05:13 Pulse Rate 67 03/20/25 08:22 Respiratory Rate 20 03/20/25 08:22 Blood Pressure 170/87 H 03/20/25 08:22 Pulse Oximetry 100 03/20/25 08:22 Oxygen Delivery Room Air 03/20/25 05:13 Lab Data 03/20/25 05:24 03/20/25 05:25 Labs: Lab Results 03/20/25 03/20/25 03/20/25 Range/Units 05:23 05:24 05:25 WBC 8.6 (4.5-10.0) K/mm3 RBC 4.36 L (4.6-6.20) M/mm3 Hgb 13.4 L (14.0-18.0) g/dL Hct 42.6 (42.0-52.0) % MCV 97.7 (80-100) fl MCH 30.7 (26-34) pg MCHC 31.5 L (32-36) g/dl RDW 13.5 (11.5-14.5) % Plt Count 193 (150-375) k/mm3 MPV 10.9 H (7.4-10.4) fl Immature Gran % (Auto) 0.5 (0-0.5) % Neut % (Auto) 73.3 H (45.5-73.1) % Lymph % (Auto) 19.4 (18.3-44.2) % [place] % (Auto) 5.6 (2.6-8.5) % Eos % (Auto) 0.6 (0-4.4) % Baso % (Auto) 0.6 (0.2-1.2) % Lymph # (Auto) 1.68 (0.9-3.2) K/mm3 [place] # (Auto) 0.5 (0.1-0.6) K/mm3 Eos # (Auto) 0.1 (0-0.3) K/mm3 Baso # (Auto) 0.1 (0.0-0.1) K/mm3 Abs Immat Gran (auto) 0.04 H (0.00-0.031) K/mm3 Absolute Neuts (auto) 6.3 (1.3-6.7) K/mm3 Absolute Nucleated RBC 0.000 (0.0-0.012) K/mm3 Nucleated RBC % 0.0 (0.0-0.2) % Sodium 142 (137-145) mmol/L Potassium 4.1 (3.4-5.0) mmol/L Chloride 106 (98-107) mmol/L Carbon Dioxide 28 (22-30) mmol/L Anion Gap 8 (4-12) mmol/L BUN 19 (9-20) mg/dL Creatinine 1.25 (0.7-1.3) mg/dL Estim Creat Clear Calc 49 ml/min Estimated GFR 57 L (59 - ) Glucose 232 H (65-110) mg/dL POC Capillary Glucose 206 H (65-105) mg/dl Calcium 8.7 (8.4-10.2) mg/dL Total Bilirubin 0.6 (0.2-1.3) mg/dL AST 35 (17-59) U/L ALT 42 (6-50) U/L Alkaline Phosphatase 107 (38-126) U/L Troponin I < 0.012 (0.000-0.034) ng/mL Total Protein 8.0 (6.3-8.2) g/dL Albumin 4.5 (3.5-5.1) g/dL Lipase 64 (23-300) U/L Urine Color (Yellow) Urine Appearance (Clear) Urine pH (5.0-9.0) Ur Specific [place] (1.001-1.035) Urine Protein (Negative) mg/dL Urine Glucose (UA) (Negative) mg/dL Urine Ketones (Negative) mg/dL Ur Blood (Man) (Negative) Urine Nitrate (Negative) Urine Bilirubin (Negative) Urine Urobilinogen (<2.0) mg/dL Leukocyte Esterase Rfl (Negative) KIRSTEN/UL Urine RBC (0-2) /hpf Urine WBC (0-3) /hpf Ur Squamous Epith Cells (Few) /hpf Urine Bacteria /hpf Urine Casts Influenza A (RT-PCR) (Negative) Influenza B (RT-PCR) (Negative) RSV (RT-PCR) (Negative) SARS-CoV-2 RNA (RT-PCR) (Negative) 03/20/25 Range/Units 05:33 WBC (4.5-10.0) K/mm3 RBC (4.6-6.20) M/mm3 Hgb (14.0-18.0) g/dL Hct (42.0-52.0) % MCV (80-100) fl MCH (26-34) pg MCHC (32-36) g/dl RDW (11.5-14.5) % Plt Count (150-375) k/mm3 MPV (7.4-10.4) fl Immature Gran % (Auto) (0-0.5) % Neut % (Auto) (45.5-73.1) % Lymph % (Auto) (18.3-44.2) % [place] % (Auto) (2.6-8.5) % Eos % (Auto) (0-4.4) % Baso % (Auto) (0.2-1.2) % Lymph # (Auto) (0.9-3.2) K/mm3 [place] # (Auto) (0.1-0.6) K/mm3 Eos # (Auto) (0-0.3) K/mm3 Baso # (Auto) (0.0-0.1) K/mm3 Abs Immat Gran (auto) (0.00-0.031) K/mm3 Absolute Neuts (auto) (1.3-6.7) K/mm3 Absolute Nucleated RBC (0.0-0.012) K/mm3 Nucleated RBC % (0.0-0.2) % Sodium (137-145) mmol/L Potassium (3.4-5.0) mmol/L Chloride (98-107) mmol/L Carbon Dioxide (22-30) mmol/L Anion Gap (4-12) mmol/L BUN (9-20) mg/dL Creatinine (0.7-1.3) mg/dL Estim Creat Clear Calc ml/min Estimated GFR (59 - ) Glucose (65-110) mg/dL POC Capillary Glucose (65-105) mg/dl Calcium (8.4-10.2) mg/dL Total Bilirubin (0.2-1.3) mg/dL AST (17-59) U/L ALT (6-50) U/L Alkaline Phosphatase (38-126) U/L Troponin I (0.000-0.034) ng/mL Total Protein (6.3-8.2) g/dL Albumin (3.5-5.1) g/dL Lipase (23-300) U/L Urine Color Yellow (Yellow) Urine Appearance Clear (Clear) Urine pH 6.5 (5.0-9.0) Ur Specific [place] 1.016 (1.001-1.035) Urine Protein 2+ H (Negative) mg/dL Urine Glucose (UA) 2+ H (Negative) mg/dL Urine Ketones Negative (Negative) mg/dL Ur Blood (Man) Negative (Negative) Urine Nitrate Negative (Negative) Urine Bilirubin Negative (Negative) Urine Urobilinogen 0.2 (<2.0) mg/dL Leukocyte Esterase Rfl Negative (Negative) KIRSTEN/UL Urine RBC 0-2 (0-2) /hpf Urine WBC 0-5 (0-3) /hpf Ur Squamous Epith Cells None seen (Few) /hpf Urine Bacteria None seen /hpf Urine Casts 0-2 Influenza A (RT-PCR) Negative (Negative) Influenza B (RT-PCR) Negative (Negative) RSV (RT-PCR) Negative (Negative) SARS-CoV-2 RNA (RT-PCR) Negative (Negative) Discharge Plan Discharge Clinical Impression: Abdominal pain, Nausea Patient Disposition: Home Condition: Stable Instructions: Antibiotic Form, Acute Nausea and Vomiting (ED), Abdominal Pain (ED) Patient Language: Iraqi Prescriptions: New ondansetron 4 mg tablet,disintegrating 4 mg PO Q8H PRN (Reason: nausea and vomiting) Qty: 10 0RF No Action metoprolol tartrate 25 mg tablet 25 mg PO DAILY prednisone 20 mg tablet See Rx Instructions .ROUTE .COMPLEX Qty: 12 0RF Rx Instructions: Take 3 tablets today, then 2 tablets daily for 3 days then 1 tablet daily for 3 days. furosemide 40 mg tablet 40 mg PO BID lactulose 20 gram/30 mL solution 20 g PO PRN PRN (Reason: Constipation) cetirizine [Zyrtec] 10 mg Tablet 10 mg PO DAILY PRN (Reason: Allergic Symptoms) fexofenadine [Fatou Allergy] 180 mg Tablet 180 mg PO DAILY PRN (Reason: Allergic Symptoms) aspirin [Aspir-81] 81 mg Tablet,Delayed Release (Dr/Ec) 81 mg PO DAILY potassium chloride 20 mEq Tablet Extended Release 20 meq PO BID ascorbic acid (vitamin C) 1,000 mg PO DAILY atorvastatin 10 mg tablet 40 mg PO DAILY omeprazole 20 mg capsule,delayed release(DR/EC) 20 mg PO BID montelukast 10 mg tablet 10 mg PO DAILY fluticasone propionate 50 mcg/actuation spray,suspension 1 spray INTRANASAL DAILY PRN (Reason: Allergy Symptoms) metformin 1,000 mg tablet 1,000 mg PO BID lidocaine 5 % adhesive patch,medicated 1 patch topical DAILY Qty: 15 0RF Rx Instructions: leave on most painful area for up to 12 hrs. do not use more than 1 patch in a 24-hour period. Follow-up/Referrals: Ludwig,Marcell Freitas MD [Primary Care Provider] - Time of Disposition: 08:43
[2025-03-20] MEDS: ONDANSETRON INJ 4 MG/2 ML VIAL IV PUSH (05:36)
[2025-03-20 05:41] LABS: Basophils Absolute Auto 0.1 K/mm3 (0.0-0.1); Basophils Percent Auto 0.6 % (0.2-1.2); Eosinophils Absolute Auto 0.1 K/mm3 (0-0.3); Eosinophils Percent Auto 0.6 % (0-4.4); Hematocrit 42.6 % (42.0-52.0); Hemoglobin 13.4 g/dL (14.0-18.0); Immature Granulocyte Absolute 0.04 K/mm3 (0.00-0.031); Immature Granulocyte Percent A 0.5 % (0-0.5); Lymphocytes Absolute Auto 1.68 K/mm3 (0.9-3.2); Lymphocytes Percent Auto 19.4 % (18.3-44.2); Mean Corpuscular HGB Conc 31.5 g/dl (32-36); Mean Corpuscular Hemoglobin 30.7 pg (26-34); Mean Corpuscular Volume 97.7 fl (80-100); Mean Platelet Volume 10.9 fl (7.4-10.4); Monocytes Absolute Auto 0.5 K/mm3 (0.1-0.6); Monocytes Percent Auto 5.6 % (2.6-8.5); Neutrophils Absolute Auto 6.3 K/mm3 (1.3-6.7); Neutrophils Percent Auto 73.3 % (45.5-73.1); Platelet Count Result 193 k/mm3 (150-375); Red Blood Count 4.36 M/mm3 (4.6-6.20); Red Cell Distribution Width 13.5 % (11.5-14.5); White Blood Count 8.6 K/mm3 (4.5-10.0)
[2025-03-20] MEDS: MORPHINE SULFATE (*CRX) 4 MG/ML INJ IV PUSH (05:41)
--- OUTSIDE RECORDS SUMMARY | 2025-03-20 05:45 | XMS_ITS | Clinical Summary ---
Author Organization [facility] [place] [address] [facility] [place] Address [address] [place] [address] Care Team Providers Care Policy Loan Calculator Name Role Phone Marcell Munroe MD Primary Care Provider [phone] Rj Chopra MD Unavailable Miscellaneous, Not In File Unavailable Unava ilable Emmanuel Alvarenga MD Unavailable [phone] Allergies Active Allergy Reactions Criticality Noted Date [...] glucose sensor (FREESTYLE NATHANIEL 14 DAY SENSOR [facility] [place] Use as directed A ctive fluticasone propionate [...] 04/03/2023 Assessment & Plan (12/06/2023 10:58 AM SHIP BOSS): BMI Follow-up includes: nutrition counseling and exercise counseling. Assessment & Plan (04/12/2023 9:14 AM CDT): BMI Follow-up includes: nutrition counseling and exercise counseling. History of colon polyps 10/11/2022 Assessment & Plan (04/12/2023 9:16 AM CDT): History of colon polyp removed 2016. Needs repeat colonoscopy. Assessment & Plan (10/11/2022 3:46 PM SHIP BOSS): Needs repeat colonoscopy Keloid scar 05/05/2021 Assessment [...] 10/01/2020 Assessment & Plan (10/01/2020 2:42 PM SHIP BOSS): Itchy skin incision side chest but no sign of infection and we will give him some topical hydrocortisone. Use only as needed. Risk of atrophy and tolerance. History of pericarditis 10/01/2020 Assessment & Plan (10/01/2020 2:44 PM SHIP BOSS): I did discuss the nature of this diagnosis with him. The exact cause of his pericarditis is unclear. Encounter for Medicare annual wellness exam 08/14 Assessment & Plan (10/13/2021 2:01 PM SHIP BOSS): BMI Follow-up includes: nutrition counseling and exercise counseling. ALSO REMINDED HE NEEDS DIABETIC EYE EXAM. Hypoglycemia 06/04/2020 Assessment & Plan (02/02/2021 4:15 PM CDT): No recurrence Assessment & Plan (10/01/2020 2:43 PM SHIP BOSS): No recur Assessment & Plan (06/04/2020 2:22 [...] 04/22/2020 Assessment & Plan (12/19/2024 11:59 AM SHIP BOSS): Status post pericardectomy in 2019. Echo on [...] (04/21/2020): Added automatically from request for surgery [id number] Assessment & Plan (05/04/2020 4:46 PM CDT): [...] 11/14/2019 Assessment & Plan (11/14/2019 8:43 AM SHIP BOSS): Advised to sleep with his head elevated on an extra pillow and to use a cool mist vaporizer at night to help with his cough. See plan of care for acute non- recurrent pansinusitis. Acute non-recurrent pansinusitis 11/14/2019 Assessment & Plan (11/14/2019 8:43 AM SHIP BOSS): Omnicef and Medrol Dosepak as directed. Informed [...] Improved. Assessment & Plan (10/30/2019 3:40 PM SHIP BOSS): To be expected recovering from illness and symptoms are fairly mild. Labs just done recently normal. Type 2 diabetes mellitus wit h hyperglycemia, without long-term current use of insulin 07/29/2019 Assessment & Plan (10/08/2024 4:16 PM SHIP BOSS): Taking glipizide 10 mg daily. Metformin a [...] glipizide Assessment & Plan (12/07/2023 11:33 AM SHIP BOSS): A1C IS NOT IMPROVED AT 8.6. HIS [...] b.i.d.. Assessment & Plan (10/12/2022 12:04 PM SHIP BOSS): A1c is worse. Will continue metformin and [...] 100s Assessment & Plan (10/13/2021 2:08 PM SHIP BOSS): Worsening control of diabetes A1c 7.7 today [...] metformin Assessment & Plan (10/01/2020 2:43 PM SHIP BOSS): Worsening glucose. A1c up to 8.0. Will [...] A1c Assessment & Plan (10/30/2019 3:38 PM SHIP BOSS): A1c needs better but he has had [...] 03/29/2019 Assessment & Plan (10/11/2022 3:43 PM SHIP BOSS): BMI Follow-up includes: nutrition counseling and exercise counseling. Assessment & Plan (04/10/2022 2:54 PM CDT): BMI Follow-up includes: nutrition counseling and exercise counseling. Assessment & Plan (10/30/2019 3:39 PM SHIP BOSS): BMI Follow-up includes: nutrition counseling and exercise [...] controlled. Assessment & Plan (12/19/2024 12:22 PM SHIP BOSS): Continue Atorvastatin. Repeat FLP. Assessment & Plan (10/08/2024 4:14 PM SHIP BOSS): Continue atorvastatin at same dosage. Well controlled. [...] visit Assessment & Plan (12/06/2023 10:56 AM SHIP BOSS): Continue atorvastatin at same dosage. Well controlled. Assessment & Plan (04/12/2023 9:09 AM CDT): Worsening lipidemia continue atorvastatin 80 mg daily. Recommend add Zetia 10 mg daily. Addition of Zetia declined. Assessment & Plan (10/11/2022 3:42 PM SHIP BOSS): Continue metoprolol at same dosage. Well controlled. Assessment & Plan (04/10/2022 2:54 PM CDT): Continue atorvastatin at same dosage. Well controlled. Assessment & Plan (10/12/2021 4:48 PM SHIP BOSS): Continue atorvastatin at same dosage. Well controlled. Assessment & Plan (05/04/2021 2:58 PM CDT): Continue atorvastatin at same dosage. Well controlled. Assessment & Plan (02/02/2021 4:15 PM CDT): Continue atorvastatin at same dosage. Well controlled. Assessment & Plan (05/17/2020 3:03 PM CDT): Continue medication at same dosage. Well controlled. Assessment & Plan (10/30/2019 3:39 PM SHIP BOSS): Continue medication at same dosage. Well controlled. Diabetes mellitus with nephropathy 10/17/2016 Allergic rhinitis 06/21/2016 Assessment & Plan (03/28/2024 1:26 PM CDT): Worsening of allergies but already on Flonase, Singulair, and Fatou. Assessment & Plan (02/02/2021 4:16 PM CDT): Continue Singulair/Flonase at same dosage. Well controlled. Assessment & Plan (03/30/2020 2:56 PM CDT): Add Singulair Assessment & Plan (10/30/2019 3:39 PM SHIP BOSS): Continue medication at same dosage. Well controlled. Assessment & Plan (04/02/2019 9:29 AM CDT): Continue medication as needed Hypertension associated with diabetes 07/01/2009 Assessment & Plan (02/05/2025 8:22 AM CDT): Continue Lopressor at same dosage. Well controlled. Assessment & Plan (12/19/2024 12:22 PM SHIP BOSS): Reasonably controlled. Continue metoprolol. Repeat CMP. Assessment & Plan (10/08/2024 4:14 PM SHIP BOSS): Continue metoprolol at same dosage. Well controlled. Assessment & Plan (07/04/2024 2:38 PM CDT): Continue metoprolol at same dosage. Well controlled. Assessment & Plan (05/10/2024 2:27 PM CDT): Continue metoprolol at same dosage. Well controlled. Assessment & Plan (03/27/2024 1:00 PM CDT): Continue metoprololat same dosage. Well controlled. Assessment & Plan (12/06/2023 10:57 AM SHIP BOSS): Continue atenolol at same dosage. Well controlled. Assessment & Plan (04/12/2023 9:11 AM CDT): Continue metoprolol at same dosage. Well controlled. Assessment & Plan (10/11/2022 3:41 PM SHIP BOSS): Continue metoprolol at same dosage. Well controlled. Assessment & Plan (04/10/2022 2:53 PM CDT): Continue metoprolol at same dosage. Well controlled. Assessment & Plan (10/12/2021 4:45 PM SHIP BOSS): Continue metoprolol at same dosage. Well controlled. [...] stable Assessment & Plan (10/30/2019 3:39 PM SHIP BOSS): Avoid NSAIDs or PPIs as much as [...] n Assessment & Plan (10/30/2019 3:39 PM SHIP BOSS): Continue medication at same dosage. Well controlled. 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, unspecified vessel or lesion type; Acute bilateral low back pain without sciatica 01/21/2025 Results Follow-Up [facility] [address] [place] [address] Medical Office [address] [place] [address] Herlinda Mora RN 01/16/2025 Telephone [facility] [address] [place] [id number] Marcell Munroe MD Forms Request from Last [...] on file Legal Sex Male 8:16 AM SHIP BOSS Gender Identity Not on file Sexual Orientation [...] 01/21/2025, 05/17/2022 Medical Devices Implanted Type Area Wraparound Facilitator Device Identifier Shelf Expiration Date Model / Serial / Lot [employer] [id number] Seprafilm 6x5in Barrier Adhesion Sterile Disposable Latex Free - [id number] Implanted:Qty: 1 on 04/27/2020 by Vinny Burgos MD PhD at [facility] N/A: Heart [employer] [id number] 10/12/2022 [id number] / / [id number] Procedures Procedure Name Priority Date/Time Associated Diagnosis Comments POCT HEMOGLOBIN A1C Routine 02/06/2025 1 :18 PM CDT Controlled type 2 diabetes mellitus without complication, without long-term current use of insulin (HCC) EGFR Routine 12/19/2024 12:30 PM SHIP BOSS Hypertension associated with diabetes (HCC) LIPID PANEL Routine 12/19/2024 12:30 PM SHIP BOSS Hyperlipidemia, unspecified hyperlipidemia type COLONOSCOPY Routine 07/17/2024 8:23 AM CDT DIABETIC EYE EXAM Routine 01/25/2023 PSA SCREEN Routine 06/28/2021 1:24 PM CDT Prostate cancer screening HEPATITIS C ANTIBODY STAT 04/16/2020 3:21 AM CDT ALBUMIN CREATININE RATIO, URINE Routine 10/09/2018 2:11 PM SHIP BOSS from Last 3 Months or Most Recently Relevant to Health Maintenance Results * (ABNORMAL) POCT hemoglobin A1c (02/06/2025 1:18 PM CDT) Hemoglobin A1C, POC 8.1 4.0 - 5.6 % Blood 02/06/2025 1:18 PM CDT us Marcell Munroe MD POINT OF CARE TEST ORDERAB LES Final Result * (ABNORMAL) eGFR (12/19/2024 12:30 PM SHIP BOSS) Pathologist [facility] eGFR 46(L) >=60 mL/min/1. 73 m2 Comment: [...] reviewed 2021. Blood 12/19/2024 12:3 0 PM SHIP BOSS 12/19/2024 12:50 PM SHIP BOSS us Paul Thurman NP LAB BLOOD ORDERABLES Fin al Result [facility] Department [place] [address] * (ABNORMAL) Lipid panel (12/19/2024 12:30 PM SHIP BOSS) Cholesterol 93 30 - 199 mg/dL Comment: [...] revised on 2018. Triglycerides 64 <=149 mg/dL [facility] Comment: Interpretive Data Ages < or [...] revised on 2018. HDL 37(L) >=40 mg/dL [facility] Comment: Interpretive Data Ages < or [...] on 2018. LDL, calculated 42 <=129 mg/dL [facility] Comment: Interpretive Data Ages < or [...] revised on 2024. Non-HDL Cholesterol 56 mg/dL [facility] Comment: Interpretive Data Ages < or [...] last revised on 2018. Chol/HDL ratio 3 [facility] Blood 12/19/2024 12:3 0 PM SHIP BOSS 12/19/2024 12:39 PM SHIP BOSS us Paul Thurman NP LAB BLOOD ORDERABLES Fin al Result [facility] Department of Laboratories [place], [place] [id number] * Colonoscopy (07/17/2024 8:23 AM CDT) Anatomical Region Laterality Modality Other us Historical Provider ENDOSCOPY PROCEDURES Zuri l Result * Diabetic Eye Exam (01/25/2023) Historical Provider HEALTH MAINTENANCE Final Result * PSA screen (06/28/2021 1:24 PM CDT) Pathologist [facility] PSA 0.3 < OR = 4.0 ng/mL [facility] Comment: The total PSA value from this assay system is standardized against the WHO standard. The test result will be approximately 20% lower when compared to the equimolar-standardized total PSA (Brooke Quincy). Comparison of serial PSA results should be [...] LAB BLOOD ORDERABLES Final Result [facility] [address] [place] [address] * Hepatitis C antibody (04/16/2020 3:21 AM CDT) [facility] Hep C Ab Nonreactive Nonreactive [facility] Blood specimen (specimen) 04/16/2020 3:21 AM CDT 04/16/2020 4:43 AM CDT Ivy Baltazar MD LAB MICROBIOLOGY - GENER AL ORDERABLES Edited Result - Final [facility] Department [place] [address] * (ABNORMAL) Microalbumin / creatinine ratio, urine, random (10/09/2018 2:11 PM SHIP BOSS) Pathologist [facility] CREATININE, RANDOM URINE 67 20 - 320 mg/dL [facility] HISTORICAL RESULTS MICROALBUMIN 14.1 See Note: mg/dL [facility] HISTORICAL RESULTS Comment: Reference Range: Reference Range Not established MICROALBUMIN/CREAT ININE RATIO, RANDOM URINE 210(H) <30 mcg/mg creat [facility] HISTORICAL RESULTS Comment: The ADA defines abnormalities in albumin excretion as follows: Category Result (mcg/mg creatinine) Normal < 30 Microalbuminuria 30-299 Clinical albuminuria > OR = 300 The ADA recommends that at least two of three specimens collected within a 3-6 month period be abnormal before considering a patient to be within a diagnostic category. 10/09/2018 2:11 PM SHIP BOSS 10/10/2018 11:50 AM SHIP BOSS Narrative [facility] HISTORICAL RESULTS - 10/10/2018 11:39 AM SHIP BOSS FASTING:YES FASTING: YES PERFORMING LAB: [place] [address], [place] [address] Mega Castro D.O., MPH Marcell Munroe MD LAB URINE ORDERABLES Final Result [facility] HISTORICAL RESULTS from Last 3 Months or Most Recently Relevant to Health Maintenance Insurance [facility] MEDICARE HEALTHDataRank [facility] T MEDICARE [employer] OPEN ACCESS MEDICARE [place] [id number] [facility] MEDICARE T MEDICARE Advance Directives For more information, please contact: [phone] * Full Code (Latest Code Status on File) Date Activated Date Inactivated Comments 05/07/2020 6:16 PM 11/02/2021 6:44 AM * Full Code Date Activated Date Inactivated Comments 04/16/2020 12:55 AM 05/06/2020 8:07 PM Care Teams Policy Loan Calculator Relationship Specialty Start Date End Date Marcell Munroe MD PCP - General 01/18/19 Rj Chopra MD Surgeon Cardiothoracic Surgery 05/06/20 Miscellaneous, Not In File 05/06/20 Emmanuel Alvarenga MD Consulting Physician Plastic Surgery 11/02/21
--- OUTSIDE RECORDS SUMMARY | 2025-03-20 05:45 | XMS_ITS | Encounter Summary ---
Author Organization [facility] Care Team Providers Care Football Pad Repairer Name Role Phone Marcell Munroe MD Primary Care Provider [phone] Marcell Munroe MD Primary Care Provider [phone]- [phone] Rj Chopra MD Unavailable Miscellaneous, Not In File Unavailable Unava ilable Nila Lopez RN Unavailable [phone] ChavezEmmanuel awad MD Unavailable [phone] Encounter Details Date Type Department Care Team (Latest Contact Info) Description 04/18/2017 Orders Only [facility] CLINCON[facility] ProviderMillicent MD [address] [place], [place] [id number] Social History Tobacco Use Types Packs/Day Years Used Date Smoking Tobacco: Never Assessed Sex and Gender Information Value Date Recorded Sex Assigned at Not on file Legal Sex Male 8:16 AM [employer] Gender Identity Not on file Sexual Orientation [...] documented as of this encounter Care Teams Football Pad Repairer Relationship Specialty Start Date End Date Marcell Munroe MD PCP - General 01/18/19 Marcell Munroe MD PCP - General 12/18/18 01/17/19 Rj Chopra MD Surgeon Cardiothoracic Surgery 05/06/20 Miscellaneous, Not In File 05/06/20 Nila Lopez, T[place] [address] [place] [address] [address] [place], [place] [id number] Excel Analyst 05/07/20 06/14/20 Emmanuel Alvarenga MD [address] [place] [address] [address] [place] [address] Consulting Physician Plastic Surgery 11/02/21 documented as of this encounter
--- OUTSIDE RECORDS SUMMARY | 2025-03-20 05:45 | XMS_ITS | Clinical Summary ---
Author Organization [facility] Address [address] [place] [address] Care Team Providers Care Dust Operator Name Role Phone Unavailable Primary Care Provider [...]
--- OUTSIDE RECORDS SUMMARY | 2025-03-20 05:45 | XMS_ITS | Referral Summary ---
Author Organization [facility] [place] [address] [facility] Address [address] [facility] [place] [address] Care Team Providers Care Concession Supervisor Name Role Phone Marcell Munroe MD Primary Care Provider +1- [phone] jR Chopra MD Unavailable Miscellaneous, Not In File Unavailable Unava ilable Emmanuel Alvarenga MD Unavailable [phone] Encounters Date Type Department Care Team Description 02/10/2025 Telephone [facility] Medical [facility] Primary Care [address] [place] [address] Marcell Munroe MD Medical Question/Miscellaneo us 02/06/2025 12:45 PM CDT Office Visit [facility] Primary Care [address] [place] [address] Marcell Munroe MD Controlled type 2 diabetes mellitus without complication, without long-term current use of insulin (HCC) (Primary Dx); Mixed hyperlipidemia; Hypertension associated with diabetes (HCC); 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, unspecified vessel or lesion type; Acute bilateral low back pain without sciatica 01/21/2025 Results Follow-Up [facility] Cardiology [address] [place] [address] Medical Office Building [address] [place] [address] Herlinda Mora RN 01/16/2025 Telephone [facility] Medical [facility] Primary Care [address] [place] [address] Marcell Munroe MD Forms Request [...] glucose sensor (FREESTYLE NATHANIEL 14 DAY SENSOR [facility]) Use as directed A ctive fluticasone propionate [...] 04/03/2023 Assessment & Plan (12/06/2023 10:58 AM ARBORIST CLIMBER): BMI Follow-up includes: nutrition counseling and exercise counseling. Assessment & Plan (04/12/2023 9:14 AM CDT): BMI Follow-up includes: nutrition counseling and exercise counseling. History of colon polyps 10/11/2022 Assessment & Plan (04/12/2023 9:16 AM CDT): History of colon polyp removed 2016. Needs repeat colonoscopy. Assessment & Plan (10/11/2022 3:46 PM ARBORIST CLIMBER): Needs repeat colonoscopy Keloid scar 05/05/2021 Assessment [...] 10/01/2020 Assessment & Plan (10/01/2020 2:42 PM ARBORIST CLIMBER): Itchy skin incision side chest but no sign of infection and we will give him some topical hydrocortisone. Use only as needed. Risk of atrophy and tolerance. History of pericarditis 10/01/2020 Assessment & Plan (10/01/2020 2:44 PM ARBORIST CLIMBER): I did discuss the nature of this diagnosis with him. The exact cause of his pericarditis is unclear. Encounter for Medicare annual wellness exam 08/14 Assessment & Plan (10/13/2021 2:01 PM ARBORIST CLIMBER): BMI Follow-up includes: nutrition counseling and exercise counseling. ALSO REMINDED HE NEEDS DIABETIC EYE EXAM. Hypoglycemia 06/04/2020 Assessment & Plan (02/02/2021 4:15 PM CDT): No recurrence Assessment & Plan (10/01/2020 2:43 PM ARBORIST CLIMBER): No recur Assessment & Plan (06/04/2020 2:22 [...] for sats > 92% 1700: Extubated to [place]. Acute on chronic renal failure 04/27/2020 Assessment [...] 04/22/2020 Assessment & Plan (12/19/2024 11:59 AM ARBORIST CLIMBER): Status post pericardectomy in 2019. Echo on [...] (04/21/2020): Added automatically from request for surgery [id number] Assessment & Plan (05/04/2020 4:46 PM CDT): [...] 11/14/2019 Assessment & Plan (11/14/2019 8:43 AM ARBORIST CLIMBER): Advised to sleep with his head elevated on an extra pillow and to use a cool mist vaporizer at night to help with his cough. See plan of care for acute non- recurrent pansinusitis. Acute non-recurrent pansinusitis 11/14/2019 Assessment & Plan (11/14/2019 8:43 AM ARBORIST CLIMBER): Omnicef and Medrol Dosepak as directed. Informed [...] Improved. Assessment & Plan (10/30/2019 3:40 PM ARBORIST CLIMBER): To be expected recovering from illness and symptoms are fairly mild. Labs just done recently normal. Type 2 diabetes mellitus wit h hyperglycemia, without long-term current use of insulin 07/29/2019 Assessment & Plan (10/08/2024 4:16 PM ARBORIST CLIMBER): Taking glipizide 10 mg daily. Metformin a [...] glipizide Assessment & Plan (12/07/2023 11:33 AM ARBORIST CLIMBER): A1C IS NOT IMPROVED AT 8.6. HIS [...] b.i.d.. Assessment & Plan (10/12/2022 12:04 PM ARBORIST CLIMBER): A1c is worse. Will continue metformin and [...] 100s Assessment & Plan (10/13/2021 2:08 PM ARBORIST CLIMBER): Worsening control of diabetes A1c 7.7 today [...] metformin Assessment & Plan (10/01/2020 2:43 PM ARBORIST CLIMBER): Worsening glucose. A1c up to 8.0. Will [...] A1c Assessment & Plan (10/30/2019 3:38 PM ARBORIST CLIMBER): A1c needs better but he has had [...] 03/29/2019 Assessment & Plan (10/11/2022 3:43 PM ARBORIST CLIMBER): BMI Follow-up includes: nutrition counseling and exercise counseling. Assessment & Plan (04/10/2022 2:54 PM CDT): BMI Follow-up includes: nutrition counseling and exercise counseling. Assessment & Plan (10/30/2019 3:39 PM ARBORIST CLIMBER): BMI Follow-up includes: nutrition counseling and exercise [...] controlled. Assessment & Plan (12/19/2024 12:22 PM ARBORIST CLIMBER): Continue Atorvastatin. Repeat FLP. Assessment & Plan (10/08/2024 4:14 PM ARBORIST CLIMBER): Continue atorvastatin at same dosage. Well controlled. [...] visit Assessment & Plan (12/06/2023 10:56 AM ARBORIST CLIMBER): Continue atorvastatin at same dosage. Well controlled. Assessment & Plan (04/12/2023 9:09 AM CDT): Worsening lipidemia continue atorvastatin 80 mg daily. Recommend add Zetia 10 mg daily. Addition of Zetia declined. Assessment & Plan (10/11/2022 3:42 PM ARBORIST CLIMBER): Continue metoprolol at same dosage. Well controlled. Assessment & Plan (04/10/2022 2:54 PM CDT): Continue atorvastatin at same dosage. Well controlled. Assessment & Plan (10/12/2021 4:48 PM ARBORIST CLIMBER): Continue atorvastatin at same dosage. Well controlled. Assessment & Plan (05/04/2021 2:58 PM CDT): Continue atorvastatin at same dosage. Well controlled. Assessment & Plan (02/02/2021 4:15 PM CDT): Continue atorvastatin at same dosage. Well controlled. Assessment & Plan (05/17/2020 3:03 PM CDT): Continue medication at same dosage. Well controlled. Assessment & Plan (10/30/2019 3:39 PM ARBORIST CLIMBER): Continue medication at same dosage. Well controlled. Diabetes mellitus with nephropathy 10/17/2016 Allergic rhinitis 06/21/2016 Assessment & Plan (03/28/2024 1:26 PM CDT): Worsening of allergies but already on Flonase, Singulair, and Fatou. Assessment & Plan (02/02/2021 4:16 PM CDT): Continue Singulair/Flonase at same dosage. Well controlled. Assessment & Plan (03/30/2020 2:56 PM CDT): Add Singulair Assessment & Plan (10/30/2019 3:39 PM ARBORIST CLIMBER): Continue medication at same dosage. Well controlled. Assessment & Plan (04/02/2019 9:29 AM CDT): Continue medication as needed Hypertension associated with diabetes 07/01/2009 Assessment & Plan (02/05/2025 8:22 AM CDT): Continue Lopressor at same dosage. Well controlled. Assessment & Plan (12/19/2024 12:22 PM ARBORIST CLIMBER): Reasonably controlled. Continue metoprolol. Repeat CMP. Assessment & Plan (10/08/2024 4:14 PM ARBORIST CLIMBER): Continue metoprolol at same dosage. Well controlled. Assessment & Plan (07/04/2024 2:38 PM CDT): Continue metoprolol at same dosage. Well controlled. Assessment & Plan (05/10/2024 2:27 PM CDT): Continue metoprolol at same dosage. Well controlled. Assessment & Plan (03/27/2024 1:00 PM CDT): Continue metoprololat same dosage. Well controlled. Assessment & Plan (12/06/2023 10:57 AM ARBORIST CLIMBER): Continue atenolol at same dosage. Well controlled. Assessment & Plan (04/12/2023 9:11 AM CDT): Continue metoprolol at same dosage. Well controlled. Assessment & Plan (10/11/2022 3:41 PM ARBORIST CLIMBER): Continue metoprolol at same dosage. Well controlled. Assessment & Plan (04/10/2022 2:53 PM CDT): Continue metoprolol at same dosage. Well controlled. Assessment & Plan (10/12/2021 4:45 PM ARBORIST CLIMBER): Continue metoprolol at same dosage. Well controlled. [...] stable Assessment & Plan (10/30/2019 3:39 PM ARBORIST CLIMBER): Avoid NSAIDs or PPIs as much as [...] n Assessment & Plan (10/30/2019 3:39 PM ARBORIST CLIMBER): Continue medication at same dosage. Well controlled. [...] on file Legal Sex Male 8:16 AM ARBORIST CLIMBER Gender Identity Not on file Sexual Orientation [...] on file Medical Devices Implanted Type Area Finance Teacher Device Identifier Shelf Expiration Date Model / Serial / Lot [employer] [id number] Seprafilm 6x5in Barrier Adhesion Sterile Disposable Latex Free - [id number] Implanted:Qty: 1 on 04/27/2020 by Vinny Burgos MD PhD at [facility] N/A: Heart [employer] [id number] 10/12/2022 [id number] / / [id number] Procedures Procedure Name Priority Date/Time Associated Diagnosis Comments POCT HEMOGLOBIN A1C Routine 02/06/2025 1 :18 PM CDT Controlled type 2 diabetes mellitus without complication, without long-term current use of insulin (HCC) EGFR Routine 12/19/2024 12:30 PM ARBORIST CLIMBER Hypertension associated with diabetes (HCC) LIPID PANEL Routine 12/19/2024 12:30 PM ARBORIST CLIMBER Hyperlipidemia, unspecified hyperlipidemia type COLONOSCOPY Routine 07/17/2024 8:23 AM CDT DIABETIC EYE EXAM Routine 01/25/2023 PSA SCREEN Routine 06/28/2021 1:24 PM CDT Prostate cancer screening HEPATITIS C ANTIBODY STAT 04/16/2020 3:21 AM CDT ALBUMIN CREATININE RATIO, URINE Routine 10/09/2018 2:11 PM ARBORIST CLIMBER from Last 3 Months or Most Recently Relevant to Health Maintenance Results * (ABNORMAL) POCT hemoglobin A1c (02/06/2025 1:18 PM CDT) Pathologist [facility] Hemoglobin A1C, POC 8.1 4.0 - 5.6 % Blood 02/06/2025 1:18 PM CDT Marcell Munroe MD POINT OF CARE TEST ORDERAB LES Final Result * (ABNORMAL) eGFR (12/19/2024 12:30 PM ARBORIST CLIMBER) Pathologist [facility] eGFR 46(L) >=60 mL/min/1. 73 m2 [...] reviewed 2021. Blood 12/19/2024 12:3 0 PM ARBORIST CLIMBER 12/19/2024 12:50 PM ARBORIST CLIMBER us Paul Thurman NP LAB BLOOD ORDERABLES Fin al Result [facility] [place] [address] * (ABNORMAL) Lipid panel (12/19/2024 12:30 PM ARBORIST CLIMBER) Cholesterol 93 30 - 199 mg/dL Comment: [...] on 2018. HDL 37(L) >=40 mg/dL [facility] Comment: Interpretive Data Ages < or = [...] 2018. LDL, calculated 42 <=129 mg/dL [facility] Comment: Interpretive Data Ages < or = [...] on 2024. Non-HDL Cholesterol 56 mg/dL [facility] Comment: Interpretive Data Ages < or = [...] [facility] Blood 12/19/2024 12:3 0 PM ARBORIST CLIMBER 12/19/2024 12:39 PM ARBORIST CLIMBER Paul Thurman NP LAB BLOOD ORDERABLES Fin al Result [facility] [place] [address] * Colonoscopy (07/17/2024 8:23 AM CDT) Anatomical [...] compared to the equimolar-standardized total PSA (Brooke Tazewell). Comparison of serial PSA results should be [...] Munroe MD LAB BLOOD ORDERABLES Final Result [facility] [id number] [id number] * Hepatitis C antibody (04/16/2020 3:21 AM CDT) Pathologist [facility] Hep C Ab Nonreactive Nonreactive [facility] Blood specimen (specimen) 04/16/2020 3:21 AM CDT 04/16/2020 4:43 AM CDT Ivy Baltazar MD LAB MICROBIOLOGY - GENER AL ORDERABLES Edited Result - Final Performing Organization Address City/[facility]/ZIP Co de Phone Number [facility] [place] [address] * (ABNORMAL) Microalbumin / creatinine ratio, urine, random (10/09/2018 2:11 PM ARBORIST CLIMBER) Pathologist [facility] CREATININE, RANDOM URINE 67 20 - 320 mg/dL [facility] HISTORICAL RESULTS MICROALBUMIN 14.1 See Note: mg/dL [facility] HISTORICAL RESULTS Comment: Reference Range: Reference Range Not established MICROALBUMIN/CREAT ININE RATIO, RANDOM URINE 210(H) <30 mcg/mg creat [facility] HISTORICAL RESULTS Comment: The ADA defines abnormalities in albumin excretion as follows: Category Result (mcg/mg creatinine) Normal < 30 Microalbuminuria 30-299 Clinical albuminuria > OR = 300 The ADA recommends that at least two of three specimens collected within a 3-6 month period be abnormal before considering a patient to be within a diagnostic category. 10/09/2018 2:11 PM ARBORIST CLIMBER 10/10/2018 11:50 AM ARBORIST CLIMBER Narrative [facility] HISTORICAL RESULTS - 10/10/2018 11:39 AM ARBORIST CLIMBER FASTING:YES FASTING: YES PERFORMING LAB: [place], [facility] [id number] [address] [place] [address] Mega Castro D.O., MPH us Marcell Munroe MD LAB URINE ORDERABLES Final Result [facility] HISTORICAL RESULTS from Last 3 Months or Most Recently Relevant to Health Maintenance Insurance AETNA MEDICARE [employer] [facility] AET MEDICARE [employer] OPEN ACCESS MEDICARE [facility] Address: [address] [address] [place] [address] AETNA MEDICARE AETNA MEDICARE Advance Directives For more information, please contact: [phone] * Full Code (Latest Code Status on File) Date Activated Date Inactivated Comments 05/07/2020 6:16 PM 11/02/2021 6:44 AM * Full Code Date Activated Date Inactivated Comments 04/16/2020 12:55 AM 05/06/2020 8:07 PM Care Teams Concession Supervisor Relationship Specialty Start Date End Date Marcell Munroe MD PCP - General 01/18/19 Rj Chopra MD Surgeon Cardiothoracic Surgery 05/06/20 Miscellaneous, Not In File 05/06/20 Emmanuel Alvarenga MD Consulting Physician Plastic Surgery 11/02/21
--- OUTSIDE RECORDS SUMMARY | 2025-03-20 05:45 | XMS_ITS | Encounter Summary ---
Author Organization [facility] Care Team Providers Care De Ionizer Operator Name Role Phone Marcell Munroe MD Primary Care Provider [phone]- [phone] Marcell Munroe MD Primary Care Provider [phone]- [phone] Rj Chopra MD Unavailable Miscellaneous, Not In File Unavailable Unava ilable Nila Lopez RN Unavailable [phone] ChavezEmmanuel awad MD Unavailable [phone] Encounter Details Date Type Department Care Team (Latest Contact Info) Description 10/17/2016 Orders Only [facility] ProviderMillicent MD [address] [place], [place] [id number] Social History Tobacco Use Types Packs/Day Years Used Date Smoking Tobacco: Never Assessed Sex and Gender Information Value Date Recorded Sex Assigned at Not on file Legal Sex Male 8:16 AM WORK CHECKER Gender Identity Not on file Sexual Orientation [...] documented as of this encounter Care Teams De Ionizer Operator Relationship Specialty Start Date End Date Marcell Munroe MD PCP - General 01/18/19 Marcell Munroe MD PCP - General 12/18/18 01/17/19 Rj Chopra MD Surgeon Cardiothoracic Surgery 05/06/20 Miscellaneous, Not In File 05/06/20 Nila Lopez, TIBURCIO [address] [place] [address] [address] [place], [place] [id number] Blower And Compressor Assembler 05/07/20 06/14/20 Emmanuel Alvarenga MD [address] [place] [address] [address] [place] [address] Consulting Physician Plastic Surgery 11/02/21 documented as of this encounter
--- OUTSIDE RECORDS SUMMARY | 2025-03-20 05:46 | XMS_ITS | Encounter Summary ---
Author Organization [facility] Care Team Providers Care Pathology Laboratory Technologist Name Role Phone Marcell Munroe MD Primary Care Provider [phone]- [phone] Marcell Munroe MD Primary Care Provider [phone]- [phone] Rj Chopra MD Unavailable Miscellaneous, Not In File Unavailable Unava ilable Nila Lopez RN Unavailable [phone] ChavezEmmanuel awad MD Unavailable [phone] Encounter Details Date Type Department Care Team (Latest Contact Info) Description 12/13/2018 Orders Only [facility] CLINCONV ProviderMillicent MD [address] [place], [place] [id number] Social History Tobacco Use Types Packs/Day Years Used Date Smoking Tobacco: Never Assessed Sex and Gender Information Value Date Recorded Sex Assigned at Not on file Legal Sex Male 8:16 AM DIRECTOR OF ENTERPRISE STRATEGY Gender Identity Not on file Sexual Orientation Not on file documented as of this encounter Plan of Treatment Not on file documented as of this encounter Procedures Procedure Name Priority Date/Time Associated Diagnosis Comments CARDIOLOGY REPORT 12/17/2018 12: 00 AM DIRECTOR OF ENTERPRISE STRATEGY documented in this encounter Results * CARDIOLOGY REPORT (12/17/2018 12:00 AM DIRECTOR OF ENTERPRISE STRATEGY) Anatomical Region Laterality Modality Other Narrative 12/17/2018 12:00 AM DIRECTOR OF ENTERPRISE STRATEGY Ordered by an unspecified provider. Historical Provider [...] documented as of this encounter Care Teams Pathology Laboratory Technologist Relationship Specialty Start Date End Date Marcell Munroe MD PCP - General 01/18/19 Marcell Munroe MD PCP - General 12/18/18 01/17/19 Rj Chopra MD Surgeon Cardiothoracic Surgery 05/06/20 Miscellaneous, Not In File 05/06/20 Nila Lopez RN [address] [place] [address] [address] [place] [address] Concrete Block Molder 05/07/20 06/14/20 Emmanuel Alvarenga MD [address] [place] [address] [address] [place] [address] Consulting Physician Plastic Surgery 11/02/21 documented as of this encounter
--- OUTSIDE RECORDS SUMMARY | 2025-03-20 05:46 | XMS_ITS | Encounter Summary ---
Author Organization [facility] Care Team Providers Care Marketing Project Specialist Name Role Phone Marcell Munroe MD Primary Care Provider [phone]- [phone] Marcell Munroe MD Primary Care Provider [phone]- [phone] Rj Chopra MD Unavailable Miscellaneous, Not In File Unavailable Unava ilable Nila Lopez RN Unavailable [phone] ChavezEmmanuel awad MD Unavailable [phone] Encounter Details Date Type Department Care Team (Latest Contact Info) Description 11/28/2018 Orders Only [facility] CLINCONV ProviderMillicent MD [address] [place], [place] [id number] Social History Tobacco Use Types Packs/Day Years Used Date Smoking Tobacco: Never Assessed Sex and Gender Information Value Date Recorded Sex Assigned at Not on file Legal Sex Male 8:16 AM DIETARY TECH Gender Identity Not on file Sexual Orientation Not on file documented as of this encounter Plan of Treatment Not on file documented as of this encounter Procedures Procedure Name Priority Date/Time Associated Diagnosis Comments CARDIOLOGY REPORT 11/28/2018 12: 00 AM DIETARY TECH documented in this encounter Results * CARDIOLOGY REPORT (11/28/2018 12:00 AM DIETARY TECH) Anatomical Region Laterality Modality Other Narrative 11/28/2018 12:00 AM DIETARY TECH Ordered by an unspecified provider. Historical Provider [...] documented as of this encounter Care Teams Marketing Project Specialist Relationship Specialty Start Date End Date Marcell Munroe MD PCP - General 01/18/19 Marcell Munroe MD PCP - General 12/18/18 01/17/19 Rj Chopra MD Surgeon Cardiothoracic Surgery 05/06/20 Miscellaneous, Not In File 05/06/20 Nila Lopez RN [address] [place] [address] [address] [place] [address] Historical Interpreter 05/07/20 06/14/20 Emmanuel Alvarenga MD [address] [place] [address] [address] [place] [address] Consulting Physician Plastic Surgery 11/02/21 documented as of this encounter
--- OUTSIDE RECORDS SUMMARY | 2025-03-20 05:46 | XMS_ITS | Encounter Summary ---
Author Organization [facility] Care Team Providers Care Parts Department Manager Name Role Phone Marcell Munroe MD Primary Care Provider [phone]- [phone] Marcell Munroe MD Primary Care Provider [phone]- [phone] Rj Chopra MD Unavailable Miscellaneous, Not In File Unavailable Unava ilable Nila Lopez RN Unavailable [phone] ChavezEmmanuel awad MD Unavailable [phone] Encounter Details Date Type Department Care Team (Latest Contact Info) Description 09/29/2017 Orders Only [facility] CLINCONV ProviderMillicent MD [address] [place], [place] [id number] Social History Tobacco Use Types Packs/Day Years Used Date Smoking Tobacco: Never Assessed Sex and Gender Information Value Date Recorded Sex Assigned at Not on file Legal Sex Male 8:16 AM FIELD UNDERWRITER Gender Identity Not on file Sexual Orientation Not on file documented as of this encounter Plan of Treatment Not on file documented as of this encounter Procedures Procedure Name Priority Date/Time Associated Diagnosis Comments COLONOSCOPY - SCAN 09/29/2017 12 :00 AM FIELD UNDERWRITER documented in this encounter Results * COLONOSCOPY - SCAN (09/29/2017 12:00 AM FIELD UNDERWRITER) Narrative 09/29/2017 12:00 AM FIELD UNDERWRITER Ordered by an unspecified provider. Historical Provider [...] documented as of this encounter Care Teams Parts Department Manager Relationship Specialty Start Date End Date Marcell Munroe MD PCP - General 01/18/19 Marcell Munroe MD PCP - General 12/18/18 01/17/19 Rj Chopra MD Surgeon Cardiothoracic Surgery 05/06/20 Miscellaneous, Not In File 05/06/20 Nila Lopez, RN [address] [place] [address] [address] [place], [place] [id number] Insurance Specialist 05/07/20 06/14/20 Emmanuel Alvarenga MD [address] [place] [address] [address] [place] [address] Consulting Physician Plastic Surgery 11/02/21 documented as of this encounter
--- OUTSIDE RECORDS SUMMARY | 2025-03-20 05:46 | XMS_ITS | Encounter Summary ---
Author Organization [facility] Address [address] [place] [address] Phone Care Team Providers Care Director Of Property Management Name Role Phone Marcell Munroe MD Primary Care Provider [phone]- [phone] Rj Chopra MD Unavailable Miscellaneous, Not In File Unavailable Unava ilable Emmanuel Alvarenga MD Unavailable [phone] Encounter Details Date Type Department Care Team (Late st Contact Info) Description 01/21/2025 Results Follow-Up [facility] Cardiology [facility] Medical Office Building [address] [place] [address] Herlinda Mora, TIBURCIO Social History [...] on file Legal Sex Male 8:16 AM SANDWICH ARTIST Gender Identity Not on file Sexual Orientation Not on file documented as of this encounter Plan of Treatment Not on file documented as of this encounter Visit Diagnoses Not on filedocumented in this encounter Care Teams Director Of Property Management Relationship Specialty Start Date End Date Marcell Munroe MD PCP - General 01/18/19 Rj Chopra MD Surgeon Cardiothoracic Surgery 05/06/20 Miscellaneous, Not In File 05/06/20 Emmanuel Alvarenga MD Consulting Physician Plastic Surgery 11/02/21 documented as of this encounter
[2025-03-20 05:51] LABS: Alanine Aminotransferase 42 U/L (6-50); Albumin Level 4.5 g/dL (3.5-5.1); Alkaline Phosphatase 107 U/L (38-126); Anion Gap 8 mmol/L (4-12); Aspartate Amino Transferase 35 U/L (17-59); Bilirubin,Total 0.6 mg/dL (0.2-1.3); Blood Urea Nitrogen 19 mg/dL (9-20); Calcium 8.7 mg/dL (8.4-10.2); Carbon Dioxide 28 mmol/L (22-30); Chloride 106 mmol/L (98-107); Estimated CRCL calculation 49 ml/min; Estimated Glomerular Filt Rate 57; Glucose 232 mg/dL (65-110); Lipase 64 U/L (23-300); Potassium 4.1 mmol/L (3.4-5.0); Sodium 142 mmol/L (137-145)
[2025-03-20 05:56] LABS: Add Urine Microscopic? YES; Appearance Urine Clear (Clear); Bacteria Urine None Seen /hpf; Bilirubin Urine Negative (Negative); Blood Urine Negative (Negative); Color Urine Yellow (Yellow); Glucose Urine UA 2+ mg/dL (Negative); Ketones Urine Negative (Negative); Leukocyte Esterase Ur Negative LEU/UL (Negative); Nitrate Urine Negative (Negative); Non Pathogenic Casts 0-2; Protein Urine 2+ mg/dL (Negative); RBC Urine 0-2 /hpf (0-2); Specific Grav Ur 1.016 (1.001-1.035); Squamous Epithelial Cell Urine None Seen /hpf (Few); Urobilinogen Urine 0.2 mg/dL (<2.0); WBC Urine 0-5 /hpf (0-3); pH Urine 6.5 (5.0-9.0)
[2025-03-20 06:08] LABS: Glucose Point of Care 206 mg/dl (65-105)
[2025-03-20 06:20] LABS: Influenza A QL RT-PCR Negative (Negative); Influenza B QL RT-PCR Negative (Negative); RSV RNA, RT-PCR Negative (Negative); SARS-CoV-2 RNA PCR Negative (Negative)
[2025-03-20 06:38] LABS: Troponin I < 0.012 ng/mL (0.000-0.034)
[2025-03-20 07:36] VITALS: BP 181/90; PULSE 68; RESP 23; O2SAT 100
[2025-03-20 08:22] VITALS: BP 170/87; PULSE 67; RESP 20; O2SAT 100
[2025-03-20 09:01] VITALS: BP 170/87; PULSE 63; RESP 20; O2SAT 100
== END 2025-03-20 09:02 | disposition home or self-care (01) ==
PROVIDERS: Emergency Provider Emergency Medicine; PCP Family Medicine
DX: R10.9 Unspecified abdominal pain (principal); R11.0 Nausea; I50.30 Unspecified diastolic (congestive) heart failure; G47.33 Obstructive sleep apnea (adult) (pediatric); Z99.89 Dependence on other enabling machines and devices; E78.5 Hyperlipidemia, unspecified; I10 Essential (primary) hypertension; K21.9 Gastro-esophageal reflux disease without esophagitis
CPT/HCPCS: 36415; 74177; 80053; 81001; 82948; 83690; 84484; 85025; 87637; 93005; 96374; 96375; 99284; J2270; J2405; Q9967